=== PATIENT | male | born 1940 | race Caucasian/White ===

== ENCOUNTER 2023-01-09 17:14 | Emergency (ER) | payer MEDICARE, OTHER ==
[2023-01-09 17:33] VITALS: O2SAT 96
[2023-01-09 17:52] LABS: BASOPHILS # (AUTO) 0.1 10^3/uL (0.0-0.1); BASOPHILS % (AUTO) 0.4 %; EOSINOPHILS % (AUTO) 0.3 %; HCT - HEMATOCRIT 43.9 % (42.0-52.0); HGB - HEMOGLOBIN 15.4 g/dL (14.0-18.0); LYMPHOCYTES % (AUTO) 8.1 %; MEAN CORPUSCULAR HEMOGLOBIN 34.8 pg (27.0-31.0); MEAN CORPUSCULAR HGB CONC 35.1 g/dL (32.0-36.0); MEAN CORPUSCULAR VOLUME 99.3 fL (80.0-94.0); MEAN PLATELET VOLUME 11.1 fL (7.4-11.4); MONOCYTES % (AUTO) 8.1 %; NEUTROPHILS % (AUTO) 82.7 %; PLT - PLATELET COUNT 192 10^3/uL (130-450); RED BLOOD COUNT 4.42 10^6/uL (4.70-6.10); RED CELL DISTRIBUTION WIDTH 12.6 % (12.0-15.0); WHITE BLOOD COUNT 12.2 x10^3/uL (4.8-10.8)
[2023-01-09 17:54] LABS: BILIRUBIN,URINE NEGATIVE (NEGATIVE); GLUCOSE, URINE (UA) NEGATIVE (NEGATIVE); KETONES,URINE (UA) NEGATIVE (NEGATIVE); LEUKOCYTE ESTERASE, URINE NEGATIVE (NEGATIVE); NITRITE,URINE NEGATIVE (NEGATIVE); OCCULT BLOOD,URINE NEGATIVE (NEGATIVE); PH,URINE 6.5 PH (5.0-7.5); PROTEIN,URINE NEGATIVE (NEGATIVE); UROBILINOGEN,URINE 0.2 (NORMAL) E.U./dL (NORMAL)
[2023-01-09 17:56] LABS: CLARITY,URINE CLEAR (CLEAR)
[2023-01-09 18:12] LABS: ALBUMIN/GLOBULIN RATIO 1.3 (1.0-2.2); CALCIUM 8.9 mg/dL (8.5-10.3); CREATININE 1.3 mg/dL (0.6-1.3); POTASSIUM 4.1 mmol/L (3.5-4.5); TOTAL PROTEIN 7.2 g/dL (6.4-8.9)
[2023-01-09] MEDS ORDERED: SODIUM CHLORIDE 0.9% 1,000 ML IV STA (20:20)
[2023-01-09 20:45] LABS: MUDS CUTOFF CONCENTRATIONS CUTOFF CONC BELOW:
[2023-01-09 20:59] LABS: ETOH - ETHANOL < 10.0 mg/dL; MAGNESIUM 1.8 mg/dL (1.7-2.3); PHOSPHORUS 3.4 mg/dL (2.5-5.0)
[2023-01-09 20:59] LABS: AMPHETAMINE SCREEN,URINE NEGATIVE (NEGATIVE); BARBITURATE SCREEN,UR NEGATIVE (NEGATIVE); BENZODIAZEPINES SCREEN, URINE NEGATIVE (NEGATIVE); COCAINE SCREEN URINE NEGATIVE (NEGATIVE); METHADONE SCREEN, URINE NEGATIVE (NEGATIVE); METHAMPHETAMINES SCREEN, URINE NEGATIVE (NEGATIVE); OPIATE SCREEN, URINE NEGATIVE (NEGATIVE); OXYCODONE SCREEN, URINE NEGATIVE (NEGATIVE); PROPOXYPHENE SCREEN, URINE NEGATIVE (NEGATIVE); THC CANNABINOID SCREEN, URINE POSITIVE (NEGATIVE); TRICYCLIC ANTIDEPRESSANT,URINE NEGATIVE (NEGATIVE)
--- NOTE | 2023-01-09 21:32 | ED Physician Documentation ---
History of Present Illness - Stated complaint Stated Complaint: WEAKNESS,CONFUSION - Chief complaint Chief Complaint: Neuro - History obtained from History obtained from: Patient, Family, Friend - History of Present Illness Timing: Today Pain level max: 0 Pain level now: 0 - Additonal information Additional information: Patient is a 82-year-old male who presents to the emergency department with increased confusion today. He is brought in by his and his friend. Reportedly he has had intermittent confusion for some time, they are currently preparing to move back to [place]. He has not been using his CPAP machine recently. No fevers. No chills. He is on Eliquis for atrial fibrillation. No numbness or tingling. No focal weakness. Does occasionally drink wine. Today his left him at the gym and went to see a friend, when she returned about an hour later he was wandering outside. He appeared more confused than usual. Review of Systems Constitutional: denies: Fever, Chills Ears: denies: Ear pain Nose: denies: Rhinorrhea / runny nose, Congestion Respiratory: denies: Cough GI: denies: Nausea, Vomiting, Diarrhea Skin: denies: Rash Musculoskeletal: denies: Neck pain, Back pain Neurologic: reports: Confused. denies: Focal weakness, Numbness, Seizure, Headache, Head injury, LOC PD PAST MEDICAL HISTORY - Past Medical History Past Medical History: Yes Cardiovascular: Atrial fibrillation Respiratory: Sleep apnea, CPAP use Other Past Medical History: Hemochromatosis - Allergies Allergies/Adverse Reactions: Allergies Allergy/AdvReac Type Severity Reaction Status Date / Time No Known Drug Allergies Allergy Verified 01/09/23 17:25 - Living Situation Living Situation: reports: With family Living Arrangement: reports: At home - Social History Does the pt smoke?: No Does the pt drink ETOH?: Yes ETOH Use: Wine - Family History Family history: reports: Non contributory PD ED PE NORMAL - Vitals Vital signs reviewed: Yes - General General: Alert and oriented X 3, No acute distress, Well developed/nourished - HEENT HEENT: Atraumatic, PERRL, EOMI, Ears normal, Moist mucous membranes, Pharynx benign - Neck Neck: Supple, no meningeal sign - Cardiac Cardiac: RRR, Strong equal pulses - Respiratory Respiratory: No respiratory distress, Clear bilaterally - Abdomen Abdomen: Soft, Non tender, Non distended - Derm Derm: Warm and dry - Extremities Extremities: No edema, No calf tenderness / cord - Neuro Neuro: Alert and oriented X 3, credit administration officer 2-12 intact, No motor deficit, No sensory deficit, Normal speech Eye Opening: Spontaneous Motor: Obeys Commands Verbal: Oriented GCS Score: 15 - Psych Psych: Normal mood, Normal affect Results - Vitals Vitals: Vital Signs - 24 hr 01/09/23 01/09/23 17:17 21:59 Temperature 37.0 C Heart Rate 105 H 82 Respiratory 18 18 Rate Blood Pressure 133/96 H 140/96 H O2 Saturation 96 96 Oxygen O2 Source Room air - Labs Labs: Laboratory Tests 01/09/23 01/09/23 01/09/23 17:39 17:39 17:43 WBC 12.2 H RBC 4.42 L Hgb 15.4 Hct 43.9 MCV 99.3 H MCH 34.8 H MCHC 35.1 RDW 12.6 Plt Count 192 MPV 11.1 Neut # (Auto) 10.0 H Lymph # (Auto) 1.0 L Kaufman # (Auto) 1.0 Eos # (Auto) 0.0 Baso # (Auto) 0.1 Absolute Nucleated RBC 0.00 Nucleated RBC % 0.0 Sodium Potassium Chloride Carbon Dioxide Anion Gap BUN Creatinine Estimated GFR (MDRD) Glucose Calcium Phosphorus Magnesium Total Bilirubin AST ALT Alkaline Phosphatase Total Protein Albumin Globulin Albumin/Globulin Ratio Lipase Urine Color YELLOW Urine Clarity CLEAR Urine pH 6.5 Ur Specific Rozel 1.015 Urine Protein NEGATIVE Urine Glucose (UA) NEGATIVE Urine Ketones NEGATIVE Urine Occult Blood NEGATIVE Urine Nitrite NEGATIVE Urine Bilirubin NEGATIVE Urine Urobilinogen 0.2 (NORMAL) Ur Leukocyte Esterase NEGATIVE Ur Microscopic Review NOT INDICATED Urine Culture Comments NOT INDICATED Urine Opiates Screen NEGATIVE Ur Oxycodone Screen NEGATIVE Urine Methadone Screen NEGATIVE Ur Propoxyphene Screen NEGATIVE Ur Barbiturates Screen NEGATIVE Ur Tricyclics Screen NEGATIVE Ur Phencyclidine Scrn NEGATIVE Ur Amphetamine Screen NEGATIVE U Methamphetamines Scrn NEGATIVE U Benzodiazepines Scrn NEGATIVE Urine Cocaine Screen NEGATIVE U Cannabinoids Screen POSITIVE H Ethyl Alcohol 01/09/23 01/09/23 17:43 17:43 WBC RBC Hgb Hct MCV MCH MCHC RDW Plt Count MPV Neut # (Auto) Lymph # (Auto) Kaufman # (Auto) Eos # (Auto) Baso # (Auto) Absolute Nucleated RBC Nucleated RBC % Sodium 131 L Potassium 4.1 Chloride 97 L Carbon Dioxide 29 Anion Gap 5.0 L BUN 12 Creatinine 1.3 Estimated GFR (MDRD) 53 L Glucose 102 Calcium 8.9 Phosphorus 3.4 Magnesium 1.8 Total Bilirubin 1.0 AST 38 ALT 24 Alkaline Phosphatase 96 Total Protein 7.2 Albumin 4.0 Globulin 3.2 Albumin/Globulin Ratio 1.3 Lipase 39 Urine Color Urine Clarity Urine pH Ur Specific Rozel Urine Protein Urine Glucose (UA) Urine Ketones Urine Occult Blood Urine Nitrite Urine Bilirubin Urine Urobilinogen Ur Leukocyte Esterase Ur Microscopic Review Urine Culture Comments Urine Opiates Screen Ur Oxycodone Screen Urine Methadone Screen Ur Propoxyphene Screen Ur Barbiturates Screen Ur Tricyclics Screen Ur Phencyclidine Scrn Ur Amphetamine Screen U Methamphetamines Scrn U Benzodiazepines Scrn Urine Cocaine Screen U Cannabinoids Screen Ethyl Alcohol < 10.0 - Rads (name of study) CT head Relevant Findings:: Final report received, See rad report PD Medical Decision Making - ED course Complexity details: reviewed results, re-evaluated patient, considered dario maradiaga d/w patient, d/w family ED course: 82-year-old male with confusion today. It does have mild hyponatremia and was given IV fluids. Mild leukocytosis, has a history of hemochromatosis, unclear what his normal baseline is. He does take testosterone and B12 at home. No acute findings on head CT, though does have chronic small vessel white matter disease. This could be contributing to his memory loss. Recommend that he have a neurocognitive evaluation when he arrives in [place]. He also has not been using his CPAP, this can be causing excessive daytime sleepiness, confusion as well. Recommend that he start using his CPAP. No focal neurological deficits. No medication changes. He appears to be at his normal baseline currently in the emergency department. We will have him follow-up with his PCP for further care. Patient counseled regarding signs and symptoms for which I believe and urgent re-evaluation would be necessary. Patient with good understanding of and agreement to plan and is comfortable going home at this time This document was made in part using voice recognition software. While efforts are made to proofread this document, sound alike and grammatical errors may occur. Departure - Departure Disposition: 01 Home, Self Care Clinical Impression: Weakness, Dehydration, Confusion Condition: Good Instructions: ED Dehydration Follow-Up: your,doctor in 1week [Other] Comments: Your laboratory testing did not show any significant abnormalities today. You were mildly dehydrated and were given IV fluids for this. Your urinalysis does not show any signs of infection. Your head CT reading is below. It is recommended that you follow-up with your doctor for further care and may benefit from a brain MRI. You should be using your CPAP at night as well as obstructive sleep apnea can cause confusion and memory issues as we discussed. PROCEDURE: HEAD WO INDICATIONS: altered mental status TECHNIQUE: Noncontrast 4.5 mm thick angled axial sections acquired from the foramen magnum to the vertex. For radiation dose reduction, the following was used: automated exposure control, adjustment of mA and/or kV according to patient size. COMPARISON: None. FINDINGS: Image quality: Excellent. CSF spaces: Basal cisterns are patent. No extra-axial fluid collections. Ventricles are normal in size and shape. Brain: There is moderate cerebral volume loss. Moderate periventricular white matter chronic small vessel treatment changes are present. No midline shift. No intracranial masses or hemorrhage. Herrera-white matter interface is normal. Skull and face: Calvarium and visualized facial bones are intact, without suspicious lesions. Sinuses: Visualized sinuses and mastoids are clear. IMPRESSION: No acute intracranial pathology. Forms: PCP List Discharge Date/Time: 01/09/23 23:11
[2023-01-09 22:01] VITALS: BP 140/96
--- NOTE | 2023-01-09 22:12 | CT Report ---
PROCEDURE: HEAD WO INDICATIONS: altered mental status TECHNIQUE: Noncontrast 4.5 mm thick angled axial sections acquired from the foramen magnum to the vertex. For r adiation dose reduction, the following was used: automated exposure control, adjustment of mA and/or kV according to patient size. COMPARISON: None. FINDINGS: Image quality: Excellent. CSF spaces: Basal cisterns are patent. No extra-axial fluid collections. Ventricles are normal in size and shape. Brain: There is moderate cerebral volume loss. Moderate periventricular white matter chronic small v essel treatment changes are present. No midline shift. No intracranial masses or hemorrhage. Herrera-w lidia matter interface is normal. Skull and face: Calvarium and visualized facial bones are intact, without suspicious lesions. Sinuses: Visualized sinuses and mastoids are clear. IMPRESSION: No acute intracranial pathology. Reviewed by: Shahid Erazo MD on 01/09/2023 10:10 PM PDT Approved by: Shahid Erazo MD on 01/09/2023 10:10 PM PDT Station ID: [id number]
== END 2023-01-09 23:11 | disposition home or self-care (01) ==
LOC: ED 17:14
DX: R41.0 Disorientation, unspecified (principal); E87.1 Hypo-osmolality and hyponatremia; E86.0 Dehydration; R53.1 Weakness; I48.91 Unspecified atrial fibrillation; Z79.899 Other long term (current) drug therapy
CPT/HCPCS: 36415; 70450; 80053; 80306; 81003; 83690; 83735; 84100; 85025; 96360; 99283; 99284; G0480; 80320; 81001; 87086

== ENCOUNTER 2023-01-13 12:45 | Inpatient (IN) | payer MEDICARE, OTHER ==
[2023-01-13 13:39] LABS: BASOPHILS # (AUTO) 0.1 10^3/uL (0.0-0.1); BASOPHILS % (AUTO) 0.7 %; EOSINOPHILS # (AUTO) 0.1 10^3/uL (0.0-0.7); HCT - HEMATOCRIT 45.3 % (42.0-52.0); HGB - HEMOGLOBIN 15.5 g/dL (14.0-18.0); LYMPHOCYTES # (AUTO) 1.1 10^3/uL (1.5-3.5); LYMPHOCYTES % (AUTO) 10.2 %; MEAN CORPUSCULAR HGB CONC 34.2 g/dL (32.0-36.0); MEAN CORPUSCULAR VOLUME 99.3 fL (80.0-94.0); MEAN PLATELET VOLUME 10.8 fL (7.4-11.4); MONOCYTES # (AUTO) 1.2 10^3/uL (0.0-1.0); NEUTROPHILS # (AUTO) 8.1 10^3/uL (1.5-6.6); NEUTROPHILS % (AUTO) 76.6 %; PLT - PLATELET COUNT 221 10^3/uL (130-450); RED BLOOD COUNT 4.56 10^6/uL (4.70-6.10); RED CELL DISTRIBUTION WIDTH 12.6 % (12.0-15.0); WHITE BLOOD COUNT 10.5 x10^3/uL (4.8-10.8)
[2023-01-13] MEDS ORDERED: diltiaZEM INJ 5 MG/ML VIAL IVP STA (13:45)
[2023-01-13 13:53] LABS: ALBUMIN 3.7 g/dL (3.2-5.5); ALBUMIN/GLOBULIN RATIO 1.2 (1.0-2.2); CALCIUM 8.6 mg/dL (8.5-10.3); CREATININE 1.1 mg/dL (0.6-1.3); TOTAL PROTEIN 6.7 g/dL (6.4-8.9)
--- NOTE | 2023-01-13 13:53 | ED Physician Documentation ---
History of Present Illness - Stated complaint Stated Complaint: SOA - Chief complaint Chief Complaint: Resp - Additonal information Additional information: 82-year-old male is brought to the emergency department for evaluation of shortness of air on exertion for at least the last 3 to 4 days. He does have a history of atrial fibrillation since 2019 for which she is on Eliquis only. He has never required anything for rate control. His , who does much of the history giving at the bedside, reports that he was seen in this emergency department on the first for confusion. He had negative labs and CT imaging. She reports the confusion persist. He does take CBD at nighttime. She also reports that he was quite anxious this morning for which she gave him a Xanax. Patient is denying chest pain. No nausea or vomiting. On presentation to the emergency department he does have an EKG showing atrial fibrillation with a rate of 130. His blood pressure is 145/74. Saturating 87% on room air. Review of Systems Constitutional: denies: Fever, Chills Cardiac: reports: Palpitations. denies: Chest pain / pressure, Pedal edema, Calf pain Respiratory: reports: Dyspnea. denies: Cough, Hemoptysis GI: reports: Reviewed and negative : reports: Reviewed and negative Skin: reports: Reviewed and negative Musculoskeletal: reports: Reviewed and negative PD PAST MEDICAL HISTORY - Past Medical History Past Medical History: Yes Cardiovascular: Atrial fibrillation Respiratory: Sleep apnea, CPAP use - Past Surgical History Past Surgical History: No Derm: Skin cancer surgery - Present Medications Home Medications: Ambulatory Orders Medication Instructions Recorded Confirmed Apixaban [Eliquis] 5 mg PO BID 01/13/23 01/13/23 - Allergies Allergies/Adverse Reactions: Allergies Allergy/AdvReac Type Severity Reaction Status Date / Time No Known Drug Allergies Allergy Verified 01/13/23 13:01 - Social History Does the pt smoke?: No Smoking Status: Never smoker Does the pt drink ETOH?: Yes Does the pt have substance abuse?: No - Immunizations Immunizations are current?: No PD ED PE NORMAL - General General: Alert and oriented X 3, No acute distress, Well developed/nourished - HEENT HEENT: Atraumatic, Moist mucous membranes - Neck Neck: Supple, no meningeal sign - Cardiac Cardiac: RRR, No murmur - Respiratory Respiratory: No respiratory distress, Clear bilaterally - Abdomen Abdomen: Normal bowel sounds, Soft, Non tender - Back Back: No CVA TTP - Derm Derm: Normal color, Warm and dry, No rash - Extremities Extremities: No deformity - Neuro Neuro: Alert and oriented X 3, pump servicer 2-12 intact Eye Opening: Spontaneous Motor: Obeys Commands Verbal: Oriented GCS Score: 15 Results - Vitals Vitals: Vital Signs - 24 hr 01/13/23 01/13/23 01/13/23 12:54 13:56 14:07 Temperature 36 C L Heart Rate 81 110 H 91 Respiratory 30 H 22 23 Rate Blood Pressure 145/74 H 139/98 H 116/72 O2 Saturation 97 88 L 92 If not protocol 2 : Oxygen Flow, liters/minute Oxygen O2 Source Nasal cannula Oxygen Flow Rate 2 - EKG (time done) 1307 EKG releavant findings:: EKG personally interpreted by author of this note. Relevant findings are: Rate: Rate (enter#) (133) Rhythm: Atrial fibrillation Intervals: No: Prolonged QT QRS: Low voltage Ischemia: Normal ST segments Compare to prior EKG: Old EKG unavailable Computer interpretation: Agree with computer - Labs Labs: Laboratory Tests 01/13/23 01/13/23 01/13/23 13:21 13:21 13:21 WBC 10.5 RBC 4.56 L Hgb 15.5 Hct 45.3 MCV 99.3 H MCH 34.0 H MCHC 34.2 RDW 12.6 Plt Count 221 MPV 10.8 Neut # (Auto) 8.1 H Lymph # (Auto) 1.1 L [place] # (Auto) 1.2 H Eos # (Auto) 0.1 Baso # (Auto) 0.1 Absolute Nucleated RBC 0.00 Nucleated RBC % 0.0 Sodium 128 L Potassium 4.0 Chloride 95 L Carbon Dioxide 26 Anion Gap 7.0 BUN 11 Creatinine 1.1 Estimated GFR (MDRD) 64 L Glucose 92 Calcium 8.6 Total Bilirubin 1.0 AST 38 ALT 23 Alkaline Phosphatase 87 B-Natriuretic Peptide 59 Total Protein 6.7 Albumin 3.7 Globulin 3.0 Albumin/Globulin Ratio 1.2 Lipase 33 TSH Free T4 Direct Nasal Adenovirus (PCR) Nasal B. parapertussis DNA (PCR) Nasal Coronavir 229E PCR Nasal Coronavir HKU1 PCR Nasal Coronavir NL63 PCR Nasal Coronavir OC43 PCR Nasal Enterovir/Rhinovir PCR Nasal Influenza B PCR Nasal Influenza A PCR Nasal Parainfluen 1 PCR Nasal Parainfluen 2 PCR Nasal Parainfluen 3 PCR Nasal Parainfluen 4 PCR Nasal RSV (PCR) Nasal B.pertussis DNA PCR Nasal C.pneumoniae (PCR) Jamin Human Metapneumo PCR Nasal M.pneumoniae (PCR) Nasal SARS-CoV-2 (PCR) 01/13/23 01/13/23 13:21 14:35 WBC RBC Hgb Hct MCV MCH MCHC RDW Plt Count MPV Neut # (Auto) Lymph # (Auto) [place] # (Auto) Eos # (Auto) Baso # (Auto) Absolute Nucleated RBC Nucleated RBC % Sodium Potassium Chloride Carbon Dioxide Anion Gap BUN Creatinine Estimated GFR (MDRD) Glucose Calcium Total Bilirubin AST ALT Alkaline Phosphatase B-Natriuretic Peptide Total Protein Albumin Globulin Albumin/Globulin Ratio Lipase TSH 4.55 Free T4 Direct 0.87 Nasal Adenovirus (PCR) NOT DETECTED Nasal B. parapertussis DNA (PCR) NOT DETECTED Nasal Coronavir 229E PCR NOT DETECTED Nasal Coronavir HKU1 PCR NOT DETECTED Nasal Coronavir NL63 PCR NOT DETECTED Nasal Coronavir OC43 PCR NOT DETECTED Nasal Enterovir/Rhinovir PCR NOT DETECTED Nasal Influenza B PCR NOT DETECTED Nasal Influenza A PCR NOT DETECTED Nasal Parainfluen 1 PCR NOT DETECTED Nasal Parainfluen 2 PCR NOT DETECTED Nasal Parainfluen 3 PCR NOT DETECTED Nasal Parainfluen 4 PCR NOT DETECTED Nasal RSV (PCR) NOT DETECTED Nasal B.pertussis DNA PCR NOT DETECTED Nasal C.pneumoniae (PCR) NOT DETECTED Jamin Human Metapneumo PCR NOT DETECTED Nasal M.pneumoniae (PCR) NOT DETECTED Nasal SARS-CoV-2 (PCR) NOT DETECTED - Rads (name of study) cxr Relevant Findings:: Final report received (Large opacity in the left lung, probably due to pleural effusion and atelectasis. Interstitial thickening and scattering interstitial opacities, potentially edema or pneumonitis.) CT chest w Relevant Findings:: Final report received PD Medical Decision Making - ED course Complexity details: reviewed results, re-evaluated patient, d/w patient ED course: 82-year-old male who has a history of A-fib on Eliquis but not requiring rate control presents emergency department for worsening exertional dyspnea and weakness. The symptoms have been present over the last 4 days. Patient was seen in this emergency department on 09 January for confusion with negative CT imaging of the head. Labs without acute worrisome abnormalities. His reports that since then he has been increasingly short of air and fatigued. On presentation to the room air saturating 87% on room air. This increased to 96% with 2 L nasal cannula. He did have globally diminished breath sounds on the left lung though no rhonchi or crackles. Initially obtained an EKG which showed A-fib rate of 130. Patient was administered 20 mg of Cardizem in the ER with a drop in his heart rate to the 80s which remained A-fib. He remained normotensive most recently blood pressure 120/65. We did obtain CBC, electrolytes and blood cultures. CBC shows no leukocytosis. Hemoglobin of 15. Electrolytes reveal hyponatremia with a sodium of 128 but no other worrisome derangement. Patient does not present as having sepsis or in septic shock. A chest x-ray shows large amount of focal consolidation in the left mid and lower lung versus acute atelectasis or pleural effusion. Pulmonary pathology is most likely causative of the A-fib with poor rate control. Blood cultures x2 were obtained and patient will be started on azithromycin and ceftriaxone here in the emergency department. A CT of the chest is pending. However I have discussed the case with Dr. Barba our hospitalist who agrees to bring the patient in for further evaluation and management of his atrial fibrillation and concern for left lung pneumonia/pleural effusion. Respiratory PCR panel is pending. I discussed the plan and findings with the patient and his and they are in agreement. 1600: CT results have been evaluated and show a large left-sided pleural effusion with underlying atelectasis however there are multiple enlarged pulmonary nodules concerning for cancer. In addition 4.5 cm liver lesion concerning for metastatic disease. Dr. Barba has called me to discuss the CT findings. She reports to me she will notify the family. Patient's heart rate currently 108. He will be placed on a Cardizem infusion for rate control and admitted to the ICU Departure - Departure Disposition: 66 [facility] DC/Xfer Clinical Impression: Atrial fibrillation with RVR, Hypoxia, Pleural effusion, Hyponatremia A-fib Qualifiers: Atrial fibrillation type: unspecified chronic Qualified Code(s): I48.20 - Chronic atrial fibrillation, unspecified Pneumonia Qualifiers: Pneumonia type: due to unspecified organism Laterality: left Lung location: lower lobe of lung Qualified Code(s): J18.9 - Pneumonia, unspecified organism Forms: PCP List
--- NOTE | 2023-01-13 13:57 | XRAY Report ---
PROCEDURE: Chest 1 View X-Ray INDICATIONS: Chest Pain TECHNIQUE: One view of the chest was acquired. COMPARISON: None. FINDINGS: Surgical changes and devices: None. Lungs and pleura: There is diffuse opacity in the left lung and moderate to large laterally layering left pleural effusion. Diffuse interstitial thickening and scattered interstitial opacities are seen in the right lung. No pneumothorax. Mediastinum: The heart is obscured by left lower lung opacity. Central vasculature is indistinct. Bones and chest wall: No suspicious bony lesions. Overlying soft tissues appear unremarkable. IMPRESSION: 1. Large opacity in the left lung, probably due to pleural effusion and atelectasis. 2. Interstitial thickening and scattered interstitial opacities, potentially edema or pneumonitis. Reviewed by: Yessenia De La Paz MD on 01/13/2023 1:55 PM PST Approved by: Yessenia De La Paz MD on 01/13/2023 1:[address] [facility] Station ID: [id number]
[2023-01-13] MEDS ORDERED: cefTRIAXone 2 GM in SODIUM CHLORIDE 0.9% MINIBAG 100 ML IV STA (14:09)
[2023-01-13] MEDS ORDERED: AZITHROMYCIN 250 MG TABLET PO STA (14:09)
[2023-01-13 14:28] LABS: THYROID STIMULATING HORMONE 4.55 uIU/mL (0.34-5.60)
[2023-01-13] MEDS ORDERED: iohexoL-300 100 ML VIAL IVP ONE (15:14)
--- NOTE | 2023-01-13 15:29 | CT Report ---
PROCEDURE: CHEST W INDICATIONS: pleaural effusion vs pna? CONTRAST: 100ml omni 300 TECHNIQUE: After the administration of intravenous contrast, 1 mm axial images were acquired from the pulmonary apices through the posterior costophrenic angles. Axial 5 mm soft tissue kernel reconstructions were performed as well as 8 mm axial MIP and coronal and sagittal 5 mm reformations. For radiation dose reduction, the following was used: automated exposure control, adjustment of mA and/or kV according to patient size. COMPARISON: Correlation is made with chest x-ray, 01/13/2023 FINDINGS: Image quality: Motion artifact is noted. Lungs and pleura: There is a large left-sided pleural effusion seen, with a small left-sided pleural effusion. Dependent enhancing opacity can be seen at both lung bases, which is attributed to atelecta sis. There are rounded pulmonary nodules seen throughout the right lung, with the largest seen within the anterior right upper lobe, measuring 14 x 10 mm in greatest axial dimension. Mediastinum: Prominent coronary artery calcification can be seen. Heart size is normal. No pericardia l effusion. No large vessel abnormality. No mediastinal adenopathy by size criteria. Chest wall and lower neck: Thyroid is unremarkable. No axillary or supraclavicular adenopathy by size . Bones: No aggressive osseous abnormality. Age-appropriate degenerative changes are seen. Upper Abdomen: There is a low-density liver lesion seen on the right posteriorly, measuring 4.5 cm. T he visualized portions of the upper abdominal structures are otherwise within normal limits. IMPRESSION: There is a large left-sided pleural effusion and a small right-sided pleural effusion. Overlying pres umed atelectasis can be seen. Numerous right-sided pulmonary nodules are seen, measuring up to 14 mm. These represent metastatic di sease until proven otherwise. There is a 4.5 cm liver lesion, which is highly suspicious for metastatic disease, given the appearan ce of the right lung. Reviewed by: Wilbur Murrieta MD on 01/13/2023 2:28 PM [place] Approved by: Wilbur Murrieta MD on 01/13/2023 2:28 PM [facility] Station ID: [id number]
[2023-01-13 15:36] LABS: CORONAVIRUS 229E-RESP PCR NOT DETECTED; CORONAVIRUS HKU1-RESP PCR NOT DETECTED; CORONAVIRUS NL63-RESP PCR NOT DETECTED; CORONAVIRUS OC43-RESP PCR NOT DETECTED
[2023-01-13 15:37] LABS: B. PARAPERTUSSIS- RESP PCR PAN NOT DETECTED; B. PERTUSSIS- RESP PCR PANEL NOT DETECTED; C. PNEUMONIAE- RESP PCR PANEL NOT DETECTED; HUMAN METAPNEUMOVIRUS NOT DETECTED; INFLUENZA A- RESP PCR PANEL NOT DETECTED; INFLUENZA B - RESP PCR PANEL NOT DETECTED; M. PNEUMONIAE- RESP PCR PANEL NOT DETECTED; PARAINFLUENZA VIRUS 1 NOT DETECTED; PARAINFLUENZA VIRUS 2 NOT DETECTED; PARAINFLUENZA VIRUS 3 NOT DETECTED; PARAINFLUENZA VIRUS 4 NOT DETECTED; RHINOVIRUS/ENTEROVIRUS NOT DETECTED; RSV- RESP PCR PANEL NOT DETECTED; SARS-CoV-2 -RESP PCR PANEL NOT DETECTED
[2023-01-13] MEDS ORDERED: ONDANSETRON 4 MG/2 ML VIAL IVP PRN (15:52)
[2023-01-13] MEDS ORDERED: SODIUM CHLORIDE FLUSH 0.9% 10 ML SYRINGE IVP PRN (15:52)
[2023-01-13] MEDS ORDERED: ACETAMINOPHEN 325 MG TABLET PO PRN (15:52)
[2023-01-13] MEDS ORDERED: MULTIVITAMIN 10 ML, THIAMINE INJ 100 MG, POTASSIUM CHLORIDE INJ 20 MEQ, FOLIC ACID INJ ... IV SCH ×5 (18:15)
--- NOTE | 2023-01-13 18:37 | HISTORY & PHYSICAL EXAMINATION ---
Chief Complaint - Chief Complaint Chief Complaint: Dyspnea History of Present Illness - Admitted From Admitted From:: ED - History Obtained From Records Reviewed: Yes History obtained from: ED, pt's , son-in-law Exam Limitations: Pt confused, recent onset - History of Present Illness HPI Comment/Other: As pt is confused and disoriented, history is obtained from recent ED reports and family (pt's and son-in-law) at bedside. Mr. Cruz is an 82 y/o M, presenting to the ED today for shortness of breath and progressively worsening confusion. Pt recently presented on 01/09 for increased confusion. ED workup then showed no clear etiology, outside of pt's non-compliance w/ CPAP and age related atrophy seen on head CT, pt discharged w/ recommended outpatient follow up. Since 01/09, he has become progressively weaker, having difficulty standing, and SOB has become debilitating. 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 We do not have details of preceding workup at this time. Today pt brought in via POV to ED. EKG shows atrial fibrillation with a rate of 133, 87% SpO2 on room air. CXR shows large amount of focal consolidation in left mid and lower lung versus acute atelectasis or pleural effusion. Pt started on azithromycin and ceftriaxone for empiric PNA treatment. CT chest shows "large left-sided pleural effusion with underlying atelectasis, however there are multiple enlarged pulmonary nodules concerning for cancer." Pt admitted for further workup of hypoxia, A-fib w/ RVR, and persistent confusion. History - Past Medical History Cardiovascular: reports: Atrial fibrillation Respiratory: reports: Sleep apnea, CPAP use Derm: reports: Other (Melanoma, posterior neck) - Past Surgical History Derm: reports: Skin cancer surgery - Family & Social History Living Situation: With family Social History Notes: Pt drinks 2 glasses of wine daily for years. He uses CBD oil nightly. He's never smoked. 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 says when he retired 5 years ago, pt became depressed. Pt was windsurfing approximately a year ago. - Substance History Use: Uses substance without health or social issues: Other (CBD) Abuse: Recurrent use of substance despite neg consequences: Alcohol - POLST POLST Status: Full Code Meds/Allgy - Home Medications Home Medications: Ambulatory Orders Medication Instructions Recorded Confirmed Apixaban [Eliquis] 5 mg PO BID 01/13/23 01/13/23 Testosterone Cypionate 0.75 ml IM UD 01/14/23 01/14/23 - Allergies Allergies/Adverse Reactions: Allergies Allergy/AdvReac Type Severity Reaction Status Date / Time No Known Drug Allergies Allergy Verified 01/13/23 13:01 Review of Systems - All Other Systems All Other Systems: reports: Reviewed and negative (As noted in HPI) Exam - Vital Signs Reviewed Vital Signs: Yes Vital Signs: Vital Signs x48h Temp Pulse Resp BP Pulse Ox O2 Flow Rate 01/13/23 16:00 36.2 C L 114 H 25 H 138/96 H 95 2 01/13/23 14:07 91 23 116/72 92 2 01/13/23 13:56 110 H 22 139/98 H 88 L 01/13/23 12:54 36 C L 81 30 H 145/74 H 97 - Physical Exam General Appearance: positive: Mild distress, Anxious, Other (Disheveled) ENT: positive: Dry mucous membranes Neck: positive: Other (Surgical scar posterior neck, melanoma removal) Respiratory: positive: Chest non-tender, Other (Breath sounds distant) Cardiovascular: positive: Tachycardia, Other (Heart sounds distant) Abdomen: positive: Non-tender, No organomegaly Skin: positive: Color nml, No rash, Warm, Dry, Other (Face flushed) Extremities: positive: Nml appearance, No pedal edema Neurologic/Psychiatric: positive: Disoriented to place, Disoriented to time, Other (When asked questions, pt responded w/ "I don't know") Conclusion/Plan - Problem List (1) Acute respiratory failure with hypoxia Conclusion/Plan: Pt's SOB today is worse than previous 3-4 days. Pt has dyspnea w/ exertion and family reports weakness attempting to stand, decreased inability to walk, and pt refuses to use his cane. 87% sat on room air. CT shows large L pleural effusion w/ underlying atelectasis vs PNA, also multiple enlarged pulmonary nodules concerning for cancer. On admission, pt on continuous O2 via NC at 2 Lpm. Pt on 2 Lpm via NC, continue supplemental O2. Thoracentesis w/ IR planned for 01/14. Pt started on BID furosemide to relieve pulmonary edema. Continuous telemetry and pulse oximetry ordered. Will closely monitor pt's SpO2 and titrate oxygen as needed. (2) Atrial fibrillation with RVR Conclusion/Plan: Pt diagnosed with atrial fibrillation in 2019 and is prescribed Eliquis; pt has not required any rate control medication previously. Today in the ED, EKG shows atrial fibrillation with a rate of 133. He was given IV push diltiazem for rate control and HR responded . Troponin in ED trended and they ruled out MD, no ST elevations noted on EKG. Pt continued on PO diltiazem Q8HR as his HR has been borderline tachycardic intermittently. Telemetry ordered for continuous monitoring. Continue Eliquis. (3) Pleural effusion Conclusion/Plan: Pt's SOB has been progressively worsening for past several days. Imaging in ED shows large left-sided pleural effusion with underlying atelectasis vs PNA. On exam, pt's breath and heart sounds are distant, likely d/t significant fluid present in pt's lungs. Pt on 2 Lpm via NC, continue supplemental O2. Will monitor via continuous oximetry. BID furosemide ordered. Pt scheduled for thoracentesis on 01/14. (4) Pneumonia Conclusion/Plan: With CXR showing infiltrate , pt started empiric treatment for PNA in ED with c eftriaxone and azithromycin. Continue empiric IV ceftriaxone and azithromycin, will tailor based on cultures. Thoracentesis also scheduled for 01/14 for culture. Qualifiers: Pneumonia type: due to unspecified organism Laterality: left Lung location: lower lobe of lung Qualified Code(s): J18.9 - Pneumonia, unspecified organism (5) Hyponatremia Conclusion/Plan: This is presumed hypovolemic hyponatremia, d/t tachycardia and pt's dry mucous membranes. Pt's Na is 128 in ED, which could be contributing to his persistent confusion. IV hydration via NS ordered. Furosemide ordered to reduce pleural effusion and diurese free water. Follow BMP daily. (6) Altered mental status Conclusion/Plan: Family reports pt had progressive confusion for past several months, increasing severely since approximately 01/07. When speaking to pt on admission, he is alert to self, believes he is currently in [place]. found pt wandering around outside on 01/09. On that day, CT head was negative. Pt was anxious today and given a Xanax, which is not prescribed for him. Pt reportedly uses CBD nightly and drinks "2x glasses of wine" daily. Start CIWA protocol w/ PRN IV lorazepam. Start Librium 10 mg BID scheduled. Correct sodium w/ IV NS. Assure pt is not hypoxic. Qualifiers: Altered mental status type: disorientation Qualified Code(s): R41.0 - Disorientation, unspecified (7) Melanoma Conclusion/Plan: Family of patient reports he had a melanoma, approximately 6x6 cm located on his posterior neck, removed at approximately 3 months ago. Family states cleared patient of residual cancer, reportedly w/ a CT scan, and family believes pt is cancer-free. ED chest CT, in addition to pleural effusion, shows multiple enlarged pulmonary nodules concerning for cancer, along with 4.5 cm liver lesion concerning for metastatic disease. MRI scheduled for 01/14 to assess metastatic involvement. Thoracentesis scheduled for 01/14, fluid to be sent to pathology. Qualifiers: Melanoma location: neck Qualified Code(s): C43.4 - Malignant melanoma of scalp and neck - Lab Results Fish Bones: 01/14/23 04:30 01/14/23 04:30 - Diagnostic Imaging Results Diagnostic Imaging Results: positive: Final report reviewed (Abdomen CT) - Other Other Results/Comments: Attestation: The patient is expected to be hospitalized for greater than 2 midnights and is expected to be discharged or transferred to another facility within 96 hours: Yes
[2023-01-13 18:44] LABS: ALBUMIN 3.7 g/dL (3.2-5.5); ALBUMIN/GLOBULIN RATIO 1.2 (1.0-2.2); BILIRUBIN,TOTAL 0.8 mg/dL (0.2-1.0); CALCIUM 8.9 mg/dL (8.5-10.3); CREATININE 1.1 mg/dL (0.6-1.3); TOTAL PROTEIN 6.9 g/dL (6.4-8.9)
[2023-01-13 18:56] LABS: ABG PH 7.46 (7.35-7.45)
[2023-01-13 18:57] LABS: ABG BASE EXCESS -2.1 mmol/L (-2.0-3.0); ABG HCO3 20.2 mmol/L (22.0-26.0); ABG OXYGEN SATURATION 96 % (94-98); ABG PCO2 29 mmHg (34-45); ABG PO2 77 mmHg (80-100); ABG TCO2 21.1 MMOL/L (21.0-29.0); ALLEN TEST POSITIVE
[2023-01-13] MEDS: chlordiazePOXIDE 5 MG CAPSULE PO SCH (19:45)
[2023-01-13] MEDS: SODIUM CHLORIDE FLUSH 0.9% 10 ML SYRINGE IVP SCH (19:48)
[2023-01-13] MEDS ORDERED: chlordiazePOXIDE 5 MG CAPSULE PO SCH (20:00)
[2023-01-13] MEDS: LORazepam 2 MG/ML VIAL IVP PRN (21:18)
[2023-01-14] MEDS: SODIUM CHLORIDE 0.9% 1,000 ML IV SCH ×2 (03:21→20:45)
[2023-01-14] MEDS: APIXABAN 5 MG TABLET PO SCH ×3 (04:10→20:42)
[2023-01-14] MEDS: SODIUM CHLORIDE FLUSH 0.9% 10 ML SYRINGE IVP SCH ×3 (04:12→17:29)
[2023-01-14 05:14] LABS: BASOPHILS # (AUTO) 0.1 10^3/uL (0.0-0.1); BASOPHILS % (AUTO) 0.7 %; EOSINOPHILS # (AUTO) 0.1 10^3/uL (0.0-0.7); EOSINOPHILS % (AUTO) 1.4 %; HCT - HEMATOCRIT 42.7 % (42.0-52.0); HGB - HEMOGLOBIN 14.9 g/dL (14.0-18.0); LYMPHOCYTES # (AUTO) 0.9 10^3/uL (1.5-3.5); LYMPHOCYTES % (AUTO) 8.9 %; MEAN CORPUSCULAR HEMOGLOBIN 34.7 pg (27.0-31.0); MEAN CORPUSCULAR HGB CONC 34.9 g/dL (32.0-36.0); MEAN CORPUSCULAR VOLUME 99.3 fL (80.0-94.0); MEAN PLATELET VOLUME 11.4 fL (7.4-11.4); MONOCYTES % (AUTO) 9.3 %; NEUTROPHILS # (AUTO) 8.1 10^3/uL (1.5-6.6); NEUTROPHILS % (AUTO) 79.2 %; PLT - PLATELET COUNT 178 10^3/uL (130-450); WHITE BLOOD COUNT 10.3 x10^3/uL (4.8-10.8)
[2023-01-14 05:23] LABS: INR 1.4 (0.8-1.2); PT - PROTHROMBIN TIME 14.4 secs (9.9-12.6)
[2023-01-14 05:31] LABS: ALBUMIN 3.4 g/dL (3.2-5.5); BILIRUBIN,DIRECT 0.16 mg/dL (0.03-0.18); BILIRUBIN,TOTAL 0.8 mg/dL (0.2-1.0); CALCIUM 8.7 mg/dL (8.5-10.3); CREATININE 1.1 mg/dL (0.6-1.3); POTASSIUM 3.7 mmol/L (3.5-4.5); TOTAL PROTEIN 6.4 g/dL (6.4-8.9)
[2023-01-14] MEDS: PRENATAL VITAMIN TABLET PO SCH (08:44)
[2023-01-14] MEDS: AZITHROMYCIN INJ 500 MG in SODIUM CHLORIDE 0.9% 250 ML IV SCH (08:46)
[2023-01-14] MEDS: THIAMINE 100 MG TABLET PO SCH (08:49)
[2023-01-14] MEDS: chlordiazePOXIDE 5 MG CAPSULE PO SCH ×2 (09:16→20:45)
--- NOTE | 2023-01-14 10:37 | XRAY Report ---
PROCEDURE: Post Thoracentesis 1V CXR INDICATIONS: Left sided pleural effusion, Thoracentesis TECHNIQUE: One view of the chest was acquired. COMPARISON: 01/13/2023 FINDINGS: Surgical changes and devices: None. Lungs and pleura: Left-sided pleural effusion has improved in the interval. No pneumothorax. Mediastinum: Mediastinal contours appear normal. Heart size is enlarged. Moderate vascular congesti on. Right pleural space clear. Atherosclerotic vascular calcification noted in the aortic arch. Bones and chest wall: No suspicious bony lesions. Overlying soft tissues appear unremarkable. IMPRESSION: Moderate left pleural effusion has improved status post thoracentesis. No pneumothorax. Cardiomegaly and moderate vascular congestion Reviewed by: Luis Torres MD on 01/14/2023 9:35 AM [facility] Approved by: Luis Torres MD on 01/14/2023 9:35 AM [facility] Station ID: [id number]
[2023-01-14 10:42] LABS: CC,BF WBC 459 /mm^3
[2023-01-14 10:44] LABS: BF CLARITY HAZY; BF SOURCE PLEURAL; CC,BF RBC 15000 /mm^3
[2023-01-14 10:45] LABS: BF COLOR PINK
[2023-01-14] MEDS: FUROSEMIDE 20 MG/2 ML VIAL IVP SCH (15:00)
[2023-01-14] MEDS: diltiaZEM 30 MG TABLET PO SCH ×3 (15:00→20:42)
--- NOTE | 2023-01-14 15:00 | PHARMACY PROGRESS NOTE ---
- Best Possible Medication History Admit Date and Time: 01/13/23 1552 Processed by: Pharmacy Medication History completed: Yes Patient Interview: Pt unable to participate Secondary Source(s): Pharmacy records, Insurance records As the person ultimately responsible for medication therapy, providers are able to order a medication from an existing home medication list in [facility] via the "Reconcile Routine" prior to Confirmation of that medication by director of academic support. Such practice is discouraged except when the physician, in their clinical judgment, deems that a medical need exists for a medication without regard to previous use.
[2023-01-14] MEDS: cefTRIAXone 1 GM in SODIUM CHLORIDE 0.9% MINIBAG 100 ML IV SCH (15:01)
--- NOTE | 2023-01-14 15:06 | PROVIDER PROGRESS NOTE ---
Subjective - Prog Note Date Prog Note Date: 01/14/23 Prog Note Time: 15:04 - Subjective Pt reports feeling: Improved Subjective: Family states they are happy to see pt doing much better. Pt feels he can breathe better and he's able to answer questions. Objective - Vital Signs/Intake & Output Reviewed Vital Signs: Yes Vital Signs: Vital Signs x48h Temp Pulse Resp BP BP Pulse Ox O2 Flow Rate 01/14/23 15:00 114/59 L 01/14/23 13:40 36.3 C L 83 22 114/59 L 98 2 01/14/23 10:01 103 H 24 109/69 96 2 01/14/23 09:55 100 21 98/54 L 97 2 01/14/23 09:30 84 22 127/70 96 2 01/14/23 08:44 125/80 01/14/23 07:48 36.9 C 113 H 18 125/80 93 2 Intake & Output: Intake & Output 01/12/23 01/13/23 01/13/23 01/14/23 00:59 00:59 23:59 23:59 Intake Total 680 Output Total 2450 Balance -1770 - Objective General Appearance: positive: No acute distress (Disheveled) Neck: positive: Nml inspection, Other (Posterior surgical scar) Respiratory: positive: Chest non-tender, Other (Breath sounds improved, but still diminished) Cardiovascular: positive: Other (Heart sounds improved, but still diminished) Skin: positive: Color nml, No rash, Warm, Dry Extremities: positive: Non-tender - Lab Results Fish Bones: 01/14/23 04:30 01/14/23 04:30 Other Labs: Lab Results x24hrs 01/14/23 01/14/23 01/14/23 Range/Units 09:45 04:30 04:30 WBC (4.8-10.8) x10^3/uL RBC (4.70-6.10) 10^6/uL Hgb (14.0-18.0) g/dL Hct (42.0-52.0) % MCV (80.0-94.0) fL MCH (27.0-31.0) pg MCHC (32.0-36.0) g/dL RDW (12.0-15.0) % Plt Count (130-450) 10^3/uL MPV (7.4-11.4) fL Neut # (Auto) (1.5-6.6) 10^3/uL Lymph # (Auto) (1.5-3.5) 10^3/uL [place] # (Auto) (0.0-1.0) 10^3/uL Eos # (Auto) (0.0-0.7) 10^3/uL Baso # (Auto) (0.0-0.1) 10^3/uL Absolute Nucleated RBC x10^3/uL Nucleated RBC % /100WBC PT 14.4 H (9.9-12.6) secs INR 1.4 H (0.8-1.2) Bld Gas Analysis Time Sample Site ABG pH (7.35-7.45) ABG pCO2 (34-45) mmHg ABG pO2 (80-100) mmHg ABG HCO3 (22.0-26.0) mmol/L ABG Total CO2 (21.0-29.0) MMOL/L ABG O2 Saturation (94-98) % ABG Base Excess (-2.0-3.0) mmol/L Donald Test O2 Delivery Device O2 Liters/Min LPM Sodium 130 L (135-145) mmol/L Potassium 3.7 (3.5-4.5) mmol/L Chloride 98 L (101-111) mmol/L Carbon Dioxide 25 (21-32) mmol/L Anion Gap 7.0 (6-13) BUN 12 (6-20) mg/dL Creatinine 1.1 (0.6-1.3) mg/dL Estimated GFR (MDRD) 64 L (>89) Glucose 124 H (74-104) mg/dL Calcium 8.7 (8.5-10.3) mg/dL Total Bilirubin 0.8 (0.2-1.0) mg/dL Direct Bilirubin 0.16 (0.03-0.18) mg/dL AST 32 (10-42) IU/L ALT 20 (10-60) IU/L Alkaline Phosphatase 78 (42-121) IU/L Troponin I High Sens (2.3-19.7) ng/L Total Protein 6.4 (6.4-8.9) g/dL Albumin 3.4 (3.2-5.5) g/dL Globulin 3.0 (2.1-4.2) g/dL Albumin/Globulin Ratio (1.0-2.2) Fluid Source PLEURAL Fluid Color PINK Fluid Clarity HAZY Fluid WBC 459 /mm^3 Fluid RBC 15060 /mm^3 Fluid Neutrophils % 15.0 % Fluid Lymphocytes % 76.0 % Fluid Monocytes % 1.0 % Fluid Eosinophils % 2.0 % Fluid Macrophages % 3.0 % Fld Mesothelial Cell % 3.0 % Nasal Adenovirus (PCR) Nasal B. parapertussis DNA (PCR) Nasal Coronavir 229E PCR Nasal Coronavir HKU1 PCR Nasal Coronavir NL63 PCR Nasal Coronavir OC43 PCR Nasal Enterovir/Rhinovir PCR Nasal Influenza B PCR Nasal Influenza A PCR Nasal Parainfluen 1 PCR Nasal Parainfluen 2 PCR Nasal Parainfluen 3 PCR Nasal Parainfluen 4 PCR Nasal RSV (PCR) Nasal B.pertussis DNA PCR Nasal C.pneumoniae (PCR) Jamin Human Metapneumo PCR Nasal M.pneumoniae (PCR) Nasal SARS-CoV-2 (PCR) 01/14/23 01/13/23 01/13/23 Range/Units 04:30 18:40 18:20 WBC 10.3 (4.8-10.8) x10^3/uL RBC 4.30 L (4.70-6.10) 10^6/uL Hgb 14.9 (14.0-18.0) g/dL Hct 42.7 (42.0-52.0) % MCV 99.3 H (80.0-94.0) fL MCH 34.7 H (27.0-31.0) pg MCHC 34.9 (32.0-36.0) g/dL RDW 13.0 (12.0-15.0) % Plt Count 178 (130-450) 10^3/uL MPV 11.4 (7.4-11.4) fL Neut # (Auto) 8.1 H (1.5-6.6) 10^3/uL Lymph # (Auto) 0.9 L (1.5-3.5) 10^3/uL [place] # (Auto) 1.0 (0.0-1.0) 10^3/uL Eos # (Auto) 0.1 (0.0-0.7) 10^3/uL Baso # (Auto) 0.1 (0.0-0.1) 10^3/uL Absolute Nucleated RBC 0.00 x10^3/uL Nucleated RBC % 0.0 /100WBC PT (9.9-12.6) secs INR (0.8-1.2) Bld Gas Analysis Time 1848 Sample Site RIGHT RADIAL ABG pH 7.46 H (7.35-7.45) ABG pCO2 29 L (34-45) mmHg ABG pO2 77 L (80-100) mmHg ABG HCO3 20.2 L (22.0-26.0) mmol/L ABG Total CO2 21.1 (21.0-29.0) MMOL/L ABG O2 Saturation 96 (94-98) % ABG Base Excess -2.1 L (-2.0-3.0) mmol/L Donald Test POSITIVE O2 Delivery Device NASAL CANNULA O2 Liters/Min 2.00 LPM Sodium 129 L (135-145) mmol/L Potassium 4.0 (3.5-4.5) mmol/L Chloride 95 L (101-111) mmol/L Carbon Dioxide 26 (21-32) mmol/L Anion Gap 8.0 (6-13) BUN 11 (6-20) mg/dL Creatinine 1.1 (0.6-1.3) mg/dL Estimated GFR (MDRD) 64 L (>89) Glucose 122 H (74-104) mg/dL Calcium 8.9 (8.5-10.3) mg/dL Total Bilirubin 0.8 (0.2-1.0) mg/dL Direct Bilirubin (0.03-0.18) mg/dL AST 38 (10-42) IU/L ALT 23 (10-60) IU/L Alkaline Phosphatase 88 (42-121) IU/L Troponin I High Sens (2.3-19.7) ng/L Total Protein 6.9 (6.4-8.9) g/dL Albumin 3.7 (3.2-5.5) g/dL Globulin 3.2 (2.1-4.2) g/dL Albumin/Globulin Ratio 1.2 (1.0-2.2) Fluid Source Fluid Color Fluid Clarity Fluid WBC /mm^3 Fluid RBC /mm^3 Fluid Neutrophils % % Fluid Lymphocytes % % Fluid Monocytes % % Fluid Eosinophils % % Fluid Macrophages % % Fld Mesothelial Cell % % Nasal Adenovirus (PCR) Nasal B. parapertussis DNA (PCR) Nasal Coronavir 229E PCR Nasal Coronavir HKU1 PCR Nasal Coronavir NL63 PCR Nasal Coronavir OC43 PCR Nasal Enterovir/Rhinovir PCR Nasal Influenza B PCR Nasal Influenza A PCR Nasal Parainfluen 1 PCR Nasal Parainfluen 2 PCR Nasal Parainfluen 3 PCR Nasal Parainfluen 4 PCR Nasal RSV (PCR) Nasal B.pertussis DNA PCR Nasal C.pneumoniae (PCR) Jamin Human Metapneumo PCR Nasal M.pneumoniae (PCR) Nasal SARS-CoV-2 (PCR) 01/13/23 01/13/23 01/13/23 Range/Units 16:26 14:35 13:21 WBC (4.8-10.8) x10^3/uL RBC (4.70-6.10) 10^6/uL Hgb (14.0-18.0) g/dL Hct (42.0-52.0) % MCV (80.0-94.0) fL MCH (27.0-31.0) pg MCHC (32.0-36.0) g/dL RDW (12.0-15.0) % Plt Count (130-450) 10^3/uL MPV (7.4-11.4) fL Neut # (Auto) (1.5-6.6) 10^3/uL Lymph # (Auto) (1.5-3.5) 10^3/uL [place] # (Auto) (0.0-1.0) 10^3/uL Eos # (Auto) (0.0-0.7) 10^3/uL Baso # (Auto) (0.0-0.1) 10^3/uL Absolute Nucleated RBC x10^3/uL Nucleated RBC % /100WBC PT (9.9-12.6) secs INR (0.8-1.2) Bld Gas Analysis Time Sample Site ABG pH (7.35-7.45) ABG pCO2 (34-45) mmHg ABG pO2 (80-100) mmHg ABG HCO3 (22.0-26.0) mmol/L ABG Total CO2 (21.0-29.0) MMOL/L ABG O2 Saturation (94-98) % ABG Base Excess (-2.0-3.0) mmol/L Donald Test O2 Delivery Device O2 Liters/Min LPM Sodium (135-145) mmol/L Potassium (3.5-4.5) mmol/L Chloride (101-111) mmol/L Carbon Dioxide (21-32) mmol/L Anion Gap (6-13) BUN (6-20) mg/dL Creatinine (0.6-1.3) mg/dL Estimated GFR (MDRD) (>89) Glucose (74-104) mg/dL Calcium (8.5-10.3) mg/dL Total Bilirubin (0.2-1.0) mg/dL Direct Bilirubin (0.03-0.18) mg/dL AST (10-42) IU/L ALT (10-60) IU/L Alkaline Phosphatase (42-121) IU/L Troponin I High Sens 21.8 H* 17.6 (2.3-19.7) ng/L Total Protein (6.4-8.9) g/dL Albumin (3.2-5.5) g/dL Globulin (2.1-4.2) g/dL Albumin/Globulin Ratio (1.0-2.2) Fluid Source Fluid Color Fluid Clarity Fluid WBC /mm^3 Fluid RBC /mm^3 Fluid Neutrophils % % Fluid Lymphocytes % % Fluid Monocytes % % Fluid Eosinophils % % Fluid Macrophages % % Fld Mesothelial Cell % % Nasal Adenovirus (PCR) NOT DETECTED Nasal B. parapertussis DNA (PCR) NOT DETECTED Nasal Coronavir 229E PCR NOT DETECTED Nasal Coronavir HKU1 PCR NOT DETECTED Nasal Coronavir NL63 PCR NOT DETECTED Nasal Coronavir OC43 PCR NOT DETECTED Nasal Enterovir/Rhinovir PCR NOT DETECTED Nasal Influenza B PCR NOT DETECTED Nasal Influenza A PCR NOT DETECTED Nasal Parainfluen 1 PCR NOT DETECTED Nasal Parainfluen 2 PCR NOT DETECTED Nasal Parainfluen 3 PCR NOT DETECTED Nasal Parainfluen 4 PCR NOT DETECTED Nasal RSV (PCR) NOT DETECTED Nasal B.pertussis DNA PCR NOT DETECTED Nasal C.pneumoniae (PCR) NOT DETECTED Jamin Human Metapneumo PCR NOT DETECTED Nasal M.pneumoniae (PCR) NOT DETECTED Nasal SARS-CoV-2 (PCR) NOT DETECTED - Diagnostic Imaging Diagnostic Imaging Results: positive: Final report reviewed (Thoracentesis U/S, MRI chest, MRI abdomen) ABX Reporting Has patient been on IV antibiotics over the past 48 hours?: Yes Assessment/Plan - Problem List (1) Acute respiratory failure with hypoxia Impression: Pt presents to ED w/ dyspnea on exertion and family reports weakness attempting to stand, decreased inability to walk, and pt refuses to use his cane; 87% sat on room air. CT shows large L pleural effusion w/ underlying atelectasis, also multiple enlarged pulmonary nodules concerning for cancer. On admission, pt on continuous O2 via NC at 2 Lpm. Thoracentesis drained 1.6 L of fluid from pt's lung and pt now having significantly less work of breathing. Post thoracentesis CXR shows residual pulmonary edema. Plan: Pt remains on 2 Lpm via NC, continue supplemental O2. BID furosemide continued for residual pulmonary edema. Continuous telemetry and pulse oximetry ordered. Monitor pt's SpO2 and titrate oxygen as needed. Echo ordered for 01/15 to evalua te LVEF. (2) Atrial fibrillation with RVR Impression: Pt diagnosed with atrial fibrillation in 2019 and is prescribed Eliquis; pt has not required any rate control medication previously. EKG from 01/13 shows atrial fibrillation w/ rate of 133. He was given IV push diltiazem for rate control, HR responded and dropped to low 90's. Troponin trended in ED, NE ruled out, no ST elevations noted on EKG. HR today still over 100. Plan: Increase PO diltiazem QID d/t persistent borderline tachy HR. Telemetry ordered for continuous monitoring. Continue Eliquis. (3) Pleural effusion Impression: Pt's SOB has been progressively worsening leading up to admission. Imaging in ED shows large left-sided pleural effusion with underlying atelectasis vs PNA. On exam, pt's breath and heart sounds are heard better than previous day. Pt urinating large amounts w/ no complications. Thoracentesis drained 1.6 L of fluid from pt's lung. Plan: Pt on 2 Lpm via NC, continue supplemental O2, monitor via continuous oximetry. BID furosemide to continue. Await pleural fluid LDH-Protein levels. (4) Pneumonia Impression: With CXR showing infiltrates, pt started empiric treatment for PNA in ED with ceftriaxone and azithromycin. Thoracentesis performed 01/14 and culture sent. Plan: Continue empiric IV ceftriaxone and azithromycin, will tailor based on cultures. Await pleural fluid culture. (5) Alcohol withdrawal Impression: Pt reported to drink 2x glasses of wine daily for years. AST/ALT labs unremarkable. CIWA protocol with Librium ordered the evening of admission. Overnight, pt became agitated and increasingly anxious, scoring 11 on CIWA card. Pt received Librium and subsequently lorazepam; pt calmed and not required further lorazepam for today. Plan: Daily thiamine and multi-vitamin. Continue CIWA protocol and BID Librium to manage pt's withdrawal symptoms. (6) Hyponatremia Impression: This was hypovolemic hyponatremia, suspected d/t tachycardia and pt's dry mucous membranes. Pt's Na improved to 130. Plan: IV hydration via NS ordered. Furosemide ordered to reduce pleural effusion and diurese free water. Follow BMP daily. (7) Altered mental status Impression: Family reports pt had progressive confusion for past several months, increasing severely since approximately 01/07. When speaking to pt on admission, he is alert to self, believes he is currently in [place]. found pt wandering around outside on 01/09. On that day, CT head was negative. Pt was anxious today and given a Xanax, which is not prescribed for him. Pt reportedly uses CBD nightly and drinks "2x glasses of wine" daily. Plan: Continue CIWA protocol w/ PRN IV lorazepam. Continue Librium 10 mg BID scheduled. Correct sodium w/ IV NS. Assure pt is not hypoxic. (8) Melanoma Impression: Family of patient reports he had a melanoma, approximately 6x6 cm located on his posterior neck, removed at approximately 3 months ago. Family states [facility] cleared patient of residual cancer, reportedly w/ a CT scan, and family believes pt is cancer-free. ED chest CT, in addition to pleural effusion, shows multiple enlarged pulmonary nodules concerning for cancer, along with 4.5 cm liver lesion concerning for metastatic disease. MRI of abdomen shows 4.8 cm mass with worrisome characteristics; findings c oncerning for malignancy, especially in the setting of pulmonary nodules. Consider biopsy. MRI of chest shows pulmonary nodules appear similar to prior (visualized on CT from ED). No definite mass within the atelectatic left lower lobe. I presented the results of both MRI scans and had a lengthy discussion with pt's family regarding the implications and treatment planning. Pt and family are investigating oncology follow-up in [facility] as they are planning to continue pt's treatment after relocating. Plan: Thoracentesis fluid sent to pathology, results pending.
[2023-01-14] MEDS ORDERED: GADOTERATE MEGLUMINE 10 MMOL/20 ML VIAL ONE (15:45)
[2023-01-14] MEDS ORDERED: LORazepam 2 MG/ML VIAL IVP ONE (15:55)
--- NOTE | 2023-01-14 17:26 | Ultrasound Report ---
PROCEDURE: Thoracentesis Puncture INDICATIONS: L pleural effusion, hypoxia TECHNIQUE: The indications, alternatives, benefits, risks, and complications of the procedure were explained to the patient. Written informed consent was obtained and placed in the chart. The chest was examined sonographically, and an appropriate site was chosen for thoracentesis. The skin was prepared and dorothy ped in the usual sterile fashion, and 1% lidocaine was infiltrated from the skin down through the ple ural surface. A 19-gauge catheter-covered needle was then introduced into the pleural space, the cat heter was advanced and the needle was withdrawn, and thereafter pleural fluid was aspirated. The cat heter was then removed and a dressing was applied. COMPARISON: 01/13/2023 CT FINDINGS: Access site: Left hemithorax. Needle: One-Step centesis catheter with introducer needle. Fluid volume and description: Serosanguineous, 1.5 L Fluid sent for diagnostic testing: Yes Medications: 1% lidocaine for local anaesthesia. Complications: None; post-procedural chest radiograph is pending to assess for pneumothorax. IMPRESSION: Successful ultrasound-guided thoracentesis. Reviewed by: Rocco Crooks MD on 01/14/2023 5:24 PM PST Approved by: Rocco Crooks MD on 01/14/2023 5:24 PM PST Station ID: [id number]
--- NOTE | 2023-01-14 17:27 | MRI Report ---
PROCEDURE: CHEST W/WO INDICATIONS: Lung mass CONTRAST: clariscan 19.6ml TECHNIQUE: Precontrast Axial 2-D spoiled GE in- and [id number], axial breath-hold T2 FSE, axial STIR FSE. Aft er administration of contrast, axial 2-D spoiled GE with fat saturation acquired over the lesion of c howardrn. COMPARISON: None. FINDINGS: Image quality: Suboptimal due to motion artifact.. Lungs and pleura: Moderate left and small right pleural effusions. The left effusion is loculated. Th ere is complete atelectasis of the left lower lobe and mild atelectasis of the left upper lobe. Pulmo nary nodules appear similar to prior, better characterized on recent CT. No distinct mass within the atelectatic left lung. Mediastinum: Heart size is normal. No pericardial effusion. No large vessel abnormality. No mediastin al adenopathy by size criteria. Chest wall and lower neck: Thyroid is unremarkable. No axillary or supraclavicular adenopathy by size . Bones: No aggressive osseous abnormality. Abdomen: Please see dedicated abdominal MRI. IMPRESSION: Suboptimal evaluation due to motion artifact. Moderate left and small right pleural effusions. The left-sided is loculated. Pulmonary nodules appear similar to prior. No definite mass within the atelectatic left lower lobe. Reviewed by: Jacob Denton on 01/14/2023 5:25 PM PST Approved by: Jacob Denton on 01/14/2023 5:25 PM PST Station ID: [id number]
[2023-01-14] MEDS ORDERED: GADOTERATE MEGLUMINE 10 MMOL/20 ML VIAL IVP ONE (17:39)
--- NOTE | 2023-01-14 18:32 | MRI Report ---
PROCEDURE: ABDOMEN W/WO INDICATIONS: Liver masses CONTRAST: clariscan 19.6ml TECHNIQUE: Coronal ultra fast SE, axial 2D spoiled GE in- and [id number]; axial breath-hold T2 fast SE. Dynam ic axial ultra fast GE during the administration of contrast; post-contrast coronal ultra fast GE or 2D spoiled GE with fat saturation from the hepatic dome to the iliac crests. Optional diffusion weig hted imaging and ADC may be performed. COMPARISON: CT 01/13/2023 FINDINGS: Image quality: Severely suboptimal due to motion artifact. Lung bases and heart: Please see same day CT Liver: In segment 6 of the liver, there is a 4.9 cm T2 intermediate, T1 hypointense mass with periphe ral enhancement. Gallbladder and biliary tree: Not visualized. Spleen: No splenomegaly. Pancreas: No pancreatic ductal dilation. Adrenals: No adrenal nodule. Kidneys and ureters: No hydronephrosis. No renal cystic lesion which requires follow up. No solid mas s. Bowel and peritoneum: No bowel distension. No pathologic free fluid. Lymph nodes: No central or retroperitoneal adenopathy. Vessels: No infrarenal aortic aneurysm. Bones: No aggressive osseous abnormality. Other: No significant ventral hernia. IMPRESSION: Severely suboptimal evaluation due to motion artifact. 4.8 cm mass with worrisome characteristics and enhancement and T2 intermediate signal. Findings are c oncerning for malignancy, especially in the setting of pulmonary nodules. Consider biopsy. Reviewed by: Jacob Denton on 01/14/2023 6:31 PM PST Approved by: Jacob Denton on 01/14/2023 6:31 PM PST Station ID: [id number]
[2023-01-15] MEDS: LORazepam 2 MG/ML VIAL IVP PRN (00:20)
[2023-01-15] MEDS: SODIUM CHLORIDE FLUSH 0.9% 10 ML SYRINGE IVP SCH ×4 (00:41→18:00)
[2023-01-15] MEDS: SODIUM CHLORIDE 0.9% 1,000 ML IV SCH (04:55)
[2023-01-15 05:54] LABS: BASOPHILS # (AUTO) 0.1 10^3/uL (0.0-0.1); BASOPHILS % (AUTO) 0.6 %; EOSINOPHILS # (AUTO) 0.2 10^3/uL (0.0-0.7); EOSINOPHILS % (AUTO) 1.7 %; HCT - HEMATOCRIT 41.5 % (42.0-52.0); HGB - HEMOGLOBIN 14.1 g/dL (14.0-18.0); LYMPHOCYTES # (AUTO) 0.9 10^3/uL (1.5-3.5); LYMPHOCYTES % (AUTO) 8.2 %; MEAN CORPUSCULAR HEMOGLOBIN 34.1 pg (27.0-31.0); MEAN CORPUSCULAR VOLUME 100.5 fL (80.0-94.0); MONOCYTES # (AUTO) 1.1 10^3/uL (0.0-1.0); MONOCYTES % (AUTO) 10.2 %; NEUTROPHILS # (AUTO) 8.5 10^3/uL (1.5-6.6); NEUTROPHILS % (AUTO) 78.7 %; PLT - PLATELET COUNT 208 10^3/uL (130-450); RED BLOOD COUNT 4.13 10^6/uL (4.70-6.10); RED CELL DISTRIBUTION WIDTH 12.5 % (12.0-15.0); WHITE BLOOD COUNT 10.8 x10^3/uL (4.8-10.8)
[2023-01-15 06:03] LABS: CREATININE 1.2 mg/dL (0.6-1.3); POTASSIUM 3.6 mmol/L (3.5-4.5)
[2023-01-15] MEDS: FUROSEMIDE 20 MG/2 ML VIAL IVP SCH ×2 (06:17→15:30)
[2023-01-15] MEDS: AZITHROMYCIN INJ 500 MG in SODIUM CHLORIDE 0.9% 250 ML IV SCH (08:59)
[2023-01-15] MEDS: COD LIVER OIL/ZINC OXIDE 113 GM TUBE TOP PRN ×2 (09:00→21:38)
[2023-01-15] MEDS: diltiaZEM 30 MG TABLET PO SCH ×4 (09:01→21:25)
[2023-01-15] MEDS: PRENATAL VITAMIN TABLET PO SCH (09:01)
[2023-01-15] MEDS: THIAMINE 100 MG TABLET PO SCH (09:01)
[2023-01-15] MEDS: APIXABAN 5 MG TABLET PO SCH ×2 (09:01→21:25)
[2023-01-15] MEDS: chlordiazePOXIDE 5 MG CAPSULE PO SCH ×2 (09:02→09:20)
[2023-01-15 10:09] LABS: PROTEIN BODY FLUID 3.8 g/dL (.)
--- NOTE | 2023-01-15 11:12 | XRAY Report ---
PROCEDURE: Chest 1 View X-Ray INDICATIONS: Pleural effusion, s/p thoracentesis TECHNIQUE: One view of the chest was acquired. COMPARISON: Chest radiograph 01/13/2023 and 01/14/2023, CT 01/13/2023, MRI 01/14/2023 FINDINGS: Surgical changes and devices: None. Lungs and pleura: Moderate left-sided pleural effusion appears similar in size when compared to the radiographs from 01/14/2023 and decreased when compared to 01/13/2023. No pneumothorax. Mild interstiti al prominence. Pulmonary nodules are better demonstrated on prior cross-sectional studies. Mediastinum: Mediastinal contours appear normal. Heart size is stable. Bones and chest wall: No suspicious bony lesions. Overlying soft tissues appear unremarkable. IMPRESSION: Moderate left pleural effusion appears similar in size when compared to 01/14/2023. No pneumothorax. Reviewed by: Luis Alfredo Gustafson MD on 01/15/2023 11:11 AM PST Approved by: Luis Alfredo Gustafson MD on 01/15/2023 11:11 AM PST Station ID: [id number]
--- NOTE | 2023-01-15 12:36 | PROVIDER PROGRESS NOTE ---
Assessment/Plan - Problem List (1) Acute respiratory failure with hypoxia Assessment/Plan: Acute respiratory failure with hypoxia Underwent thoracentesis on 01/16 with removal of 1.6 L of pleural fluid. Patient remains on minimal supplemental oxygen. Repeat chest x-ray was performed which was unchanged from previous. Currently pending pleural fluid culture and pathology. Etiology is believed to be from pneumonia versus pulmonary nodules. Continue on IV Lasix. (2) Alcohol withdrawal Assessment/Plan: Discontinue Librium per family request. I do not think he is withdrawing. He has a prior history of drinking 2x glasses of wine daily. Continue thaimine and multivitamin supplements. (3) Altered mental status Qualifiers: Altered mental status type: disorientation Qualified Code(s): R41.0 - Disorientation, unspecified Assessment/Plan: Family reports that patient's mental status has been declining for several years. A CT head was performed while in the ED which was unremarkable. He will likely need an MRI of his brain to rule out metastatic lesions. There is also concern for Warnicke/Korsakoff due to his daily drinking. Family did not want an MRI of his brain performed while inpatient as to not overwhelm the patient himself. (4) Atrial fibrillation with RVR Assessment/Plan: Patient's tachycardia has improved with oral diltiazem 4 times daily. He also remains on Eliquis. Continue to monitor on telemetry (5) Hyponatremia Assessment/Plan: Have discontinued his IV normal saline due to orthopnea. We will continue to monitor his sodium. 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 An MRI of his abdomen and lung was performed during this admission. MRI of the abdomen shows a 4.8 cm mass which is worrisome. This will eventually need to be biopsied. There is also evidence of nodules on his lung MRI. Family would like to get this taken care of in [place]. However there will be several social challenges. (7) Pleural effusion Assessment/Plan: Culture and pathology pending. 1.6L was taken off via thoracentesis on 01/14. (8) Pneumonia Qualifiers: Pneumonia type: due to unspecified organism Laterality: left Lung location: lower lobe of lung Qualified Code(s): J18.9 - Pneumonia, unspecified organism Assessment/Plan: Continue IV ceftriaxone and azithromycin. He is on minimal oxygen he can likely be weaned over the next 24 hours. His pleural effusion culture is currently pending. (9) Weakness Assessment/Plan: Case was discussed with PT/OT. They are preliminarily recommending postacute given his general decline in cognition as well as profound weakness. He is also having a left-sided foot drop. - Current Meds Current Meds: Current Medications Generic Name Dose Route Start Last Admin Trade Name Freq PRN Reason Stop Dose Admin Apixaban 5 mg 01/13/23 21:00 01/15/23 09:01 Apixaban 5 Mg Tablet PO 5 mg BID JUNITO Administration Diltiazem HCl 90 mg 01/14/23 13:00 01/15/23 09:01 Diltiazem 30 Mg Tablet PO 90 mg QID JUNITO Administration Furosemide 20 mg 01/14/23 14:00 01/15/23 06:17 Furosemide 20 Mg/2 Ml Vial IVP 20 mg BIDDIURETIC JUNITO Administration Azithromycin 500 mg/ Sodium 250 mls @ 250 mls/hr 01/14/23 09:00 01/15/23 10:32 Chloride IV 01/16/23 00:01 Infused DAILY JUNITO Infusion Ceftriaxone Sodium 1 gm/ 100 mls @ 200 mls/hr 01/14/23 14:00 01/14/23 15:35 Sodium Chloride IV Infused Q24H JUNITO Infusion Lorazepam 1 mg 01/13/23 18:12 01/15/23 00:20 Lorazepam 2 Mg/Ml Vial IVP 1 mg Q30M PRN Administration CIWA >8 Protocol Multivit/Folic Acid/Iron 1 tab 01/14/23 09:00 01/15/23 09:01 Vitamin Tablet PO 1 tab DAILY JUNITO Administration Sodium Chloride 10 ml 01/13/23 17:00 01/15/23 08:59 Sodium Chloride Flush 0.9% 10 Ml Syringe IVP 10 ml 0100,0900,1700 JUNITO Administration Thiamine HCl 100 mg 01/14/23 09:00 01/15/23 09:01 Thiamine 100 Mg Tablet PO 100 mg DAILY JUNITO Administration Zinc Oxide 113 gm 01/14/23 13:56 01/15/23 09:00 Cod Liver Oil/Zinc Oxide 113 Gm Tube TOP 1 applic PRN PRN Administration Skin Care - Lab Result Fish Bone Diagrams: 01/15/23 05:22 01/15/23 05:22 - Additional Planning Condition/Complexity: Stable My Orders: My Active Orders 01/15/23 Evaluate and Treat OT [OT] Routine Evaluate and Treat PT [PT] Routine 01/15/23 08:32 BiPAP/CPAP [RC] HS Consult/Specialty: OT, PT Subjective - Subjective Patient Reports: Feeling Better (Nursing reported orthopnea. Will discontinue his IV fluids. Repeat CXR performed this morning was unchanged from previous. Lengthy discussion with family regarding plan of care.), Resting Comfortably (Patient did have some orthopnea reported by nursing. CXR performed this morning with unchanged from previous.) Nursing Reports: Confused Objective Vital Signs: Vital Signs - 24 hr 01/14/23 01/14/23 01/14/23 13:40 15:00 17:00 Temperature 36.3 C L Heart Rate [ 83 93 Brachial] Respiratory 22 Rate Blood Pressure 114/59 L Blood Pressure [Left Brachial artery] Blood Pressure 114/59 L [Left] O2 Saturation 98 97 If not protocol 2 : Oxygen Flow, liters/minute 01/14/23 01/14/23 01/14/23 17:20 20:42 20:45 Temperature 36.5 C Heart Rate [ 83 Brachial] Respiratory 18 Rate Blood Pressure 110/65 Blood Pressure [Left Brachial artery] Blood Pressure 110/65 [Left] O2 Saturation 97 97 If not protocol : Oxygen Flow, liters/minute 01/15/23 01/15/23 01/15/23 00:07 05:00 08:24 Temperature 37.1 C 36.7 C 36.7 C Heart Rate [ 82 84 102 H Brachial] Respiratory 22 22 22 Rate Blood Pressure Blood Pressure 119/61 127/64 116/60 [Left Brachial artery] Blood Pressure [Left] O2 Saturation 94 96 95 If not protocol 2 2 2 : Oxygen Flow, liters/minute 01/15/23 01/15/23 09:01 11:16 Temperature 36.3 C L Heart Rate [ 99 Brachial] Respiratory 20 Rate Blood Pressure 116/60 Blood Pressure 118/66 [Left Brachial artery] Blood Pressure [Left] O2 Saturation 95 If not protocol : Oxygen Flow, liters/minute Oxygen O2 Source Room air Oxygen Flow Rate 2 I&O (Last 24 Hrs): Intake and Output Totals x24h 1101/14/23 01/15/23 23:59 23:59 23:59 Intake Total 0761.333 865.834 Output Total 7970 1175 Balance -666.667 -309.166 General: Alert (Alert and oriented X1 (person).), Cooperative, No acute distress HEENT: Atraumatic, PERRLA, EOMI Neck: Supple, No JVD, No thyromegaly, +2 carotid pulse wo bruit, No LAD Lymphatic: no adenopathy Neuro: Alert, CN 2-12 Grossly Intact, Oriented Times 3 Cardiovascular: Regular rate, Normal S1, Normal S2, No murmurs Respiratory: Chest non-tender, No respiratory distress, Breath sounds nml Abdomen: Normal bowel sounds, Soft, No tenderness, No hepatospenomegaly, No masses Genitourinary: Normal Inspection, No Mass, No Discharge, No Meatal Blood, No Hernia Rectal: Non-Tender Extremities: No clubbing, No cyanosis, No edema, Normal pulses, No tenderness/swelling Skin: No rashes, No breakdown, No significant lesion - Results Results: Laboratory Results WBC 10.8 x10^3/uL (4.8-10.8) 01/15/23 05:22 RBC 4.13 10^6/uL (4.70-6.10) L 01/15/23 05:22 Hgb 14.1 g/dL (14.0-18.0) 01/15/23 05:22 Hct 41.5 % (42.0-52.0) L 01/15/23 05:22 MCV 100.5 fL (80.0-94.0) H 01/15/23 05:22 MCH 34.1 pg (27.0-31.0) H 01/15/23 05:22 MCHC 34.0 g/dL (32.0-36.0) 01/15/23 05:22 RDW 12.5 % (12.0-15.0) 01/15/23 05:22 Plt Count 208 10^3/uL (130-450) 01/15/23 05:22 MPV 11.0 fL (7.4-11.4) 01/15/23 05:22 Neut # (Auto) 8.5 10^3/uL (1.5-6.6) H 01/15/23 05:22 Lymph # (Auto) 0.9 10^3/uL (1.5-3.5) L 01/15/23 05:22 [place] # (Auto) 1.1 10^3/uL (0.0-1.0) H 01/15/23 05:22 Eos # (Auto) 0.2 10^3/uL (0.0-0.7) 01/15/23 05:22 Baso # (Auto) 0.1 10^3/uL (0.0-0.1) 01/15/23 05:22 Absolute Nucleated RBC 0.00 x10^3/uL 01/15/23 05: Nucleated RBC % 0.0 /100WBC 01/15/23 05:22 PT 14.4 secs (9.9-12.6) H 01/14/23 04:30 INR 1.4 (0.8-1.2) H 01/14/23 04:30 Bld Gas Analysis Time 1848 01/13/23 18:40 Sample Site RIGHT RADIAL 01/13/23 18:40 ABG pH 7.46 (7.35-7.45) H 01/13/23 18:40 ABG pCO2 29 mmHg (34-45) L 01/13/23 18:40 ABG pO2 77 mmHg (80-100) L 01/13/23 18:40 ABG HCO3 20.2 mmol/L (22.0-26.0) L 01/13/23 18:40 ABG Total CO2 21.1 MMOL/L (21.0-29.0) 01/13/23 18:40 ABG O2 Saturation 96 % (94-98) 01/13/23 18:40 ABG Base Excess -2.1 mmol/L (-2.0-3.0) L 01/13/23 18:40 Donald Test POSITIVE 01/13/23 18:40 O2 Delivery Device NASAL CANNULA 01/13/23 18:40 O2 Liters/Min 2.00 LPM 01/13/23 18:40 Sodium 129 mmol/L (135-145) L 01/15/23 05:22 Potassium 3.6 mmol/L (3.5-4.5) 01/15/23 05:22 Chloride 96 mmol/L (101-111) L 01/15/23 05:22 Carbon Dioxide 27 mmol/L (21-32) 01/15/23 05:22 Anion Gap 6.0 (6-13) 01/15/23 05:22 BUN 13 mg/dL (6-20) 01/15/23 05:22 Creatinine 1.2 mg/dL (0.6-1.3) 01/15/23 05:22 Estimated GFR (MDRD) 58 (>89) L 01/15/23 05:22 Glucose 100 mg/dL (74-104) 01/15/23 05:22 Calcium 8.0 mg/dL (8.5-10.3) L 01/15/23 05:22 Total Bilirubin 0.8 mg/dL (0.2-1.0) 01/14/23 04:30 Direct Bilirubin 0.16 mg/dL (0.03-0.18) 01/14/23 04:30 AST 32 IU/L (10-42) 01/14/23 04:30 ALT 20 IU/L (10-60) 01/14/23 04:30 Alkaline Phosphatase 78 IU/L (42-121) 01/14/23 04:30 Troponin I High Sens 21.8 ng/L (2.3-19.7) H* 01/13/23 16:26 B-Natriuretic Peptide 59 pg/mL (5-100) 01/13/23 13:21 Total Protein 6.4 g/dL (6.4-8.9) 01/14/23 04:30 Albumin 3.4 g/dL (3.2-5.5) 01/14/23 04:30 Globulin 3.0 g/dL (2.1-4.2) 01/14/23 04:30 Albumin/Globulin Ratio 1.2 (1.0-2.2) 01/13/23 18:20 Lipase 33 U/L (11-82) 01/13/23 13:21 TSH 4.55 uIU/mL (0.34-5.60) 01/13/23 13:21 Free T4 Direct 0.87 ng/dL (0.58-1.64) 01/13/23 13:21 Fluid Source PLEURAL 01/14/23 09:45 Fluid Color PINK 01/14/23 09:45 Fluid Clarity HAZY 01/14/23 09:45 Fluid WBC 459 /mm^3 01/14/23 09:45 Fluid RBC 26604 /mm^3 01/14/23 09:45 Fluid Neutrophils % 15.0 % 01/14/23 09:45 Fluid Lymphocytes % 76.0 % 01/14/23 09:45 Fluid Monocytes % 1.0 % 01/14/23 09:45 Fluid Eosinophils % 2.0 % 01/14/23 09:45 Fluid Macrophages % 3.0 % 01/14/23 09:45 Fld Mesothelial Cell % 3.0 % 01/14/23 09:45 Fluid Glucose 88 mg/dL (.) 01/14/23 09:45 Fluid Total Protein 3.8 g/dL (.) 01/14/23 09:45 Fluid LDH 133 IU/L (.) 01/14/23 09:45 Nasal Adenovirus (PCR) NOT DETECTED 01/13/23 14:35 Nasal B. parapertussis DNA (PCR) NOT DETECTED 01/13/23 14:35 Nasal Coronavir 229E PCR NOT DETECTED 01/13/23 14:35 Nasal Coronavir HKU1 PCR NOT DETECTED 01/13/23 14:35 Nasal Coronavir NL63 PCR NOT DETECTED 01/13/23 14:35 Nasal Coronavir OC43 PCR NOT DETECTED 01/13/23 14:35 Nasal Enterovir/Rhinovir PCR NOT DETECTED 01/13/23 14:35 Nasal Influenza B PCR NOT DETECTED 01/13/23 14:35 Nasal Influenza A PCR NOT DETECTED 01/13/23 14:35 Nasal Parainfluen 1 PCR NOT DETECTED 01/13/23 14:35 Nasal Parainfluen 2 PCR NOT DETECTED 01/13/23 14:35 Nasal Parainfluen 3 PCR NOT DETECTED 01/13/23 14:35 Nasal Parainfluen 4 PCR NOT DETECTED 01/13/23 14:35 Nasal RSV (PCR) NOT DETECTED 01/13/23 14:35 Nasal B.pertussis DNA PCR NOT DETECTED 01/13/23 14:35 Nasal C.pneumoniae (PCR) NOT DETECTED 01/13/23 14:35 Jamin Human Metapneumo PCR NOT DETECTED 01/13/23 14:35 Nasal M.pneumoniae (PCR) NOT DETECTED 01/13/23 14:35 Nasal SARS-CoV-2 (PCR) NOT DETECTED 01/13/23 14:35 Sepsis Event Note (H) - Evaluation Current Stage of Sepsis: Ruled out ABX Reporting Has patient been on IV antibiotics over the past 48 hours?: Yes Current Medications - Current Medications Current Medications: Active Medications Generic Name Dose Route Start Last Admin Trade Name Freq PRN Reason Stop Dose Admin Acetaminophen 650 mg 01/13/23 15:52 Acetaminophen 325 Mg Tablet PO Q4HR PRN Pain 1 to 4, or Fever Apixaban 5 mg 01/13/23 21:00 01/15/23 09:01 Apixaban 5 Mg Tablet PO 5 mg BID JUNITO Administration Diltiazem HCl 90 mg 01/14/23 13:00 01/15/23 09:01 Diltiazem 30 Mg Tablet PO 90 mg QID JUNITO Administration Furosemide 20 mg 01/14/23 14:00 01/15/23 06:17 Furosemide 20 Mg/2 Ml Vial IVP 20 mg BIDDIURETIC JUNITO Administration Azithromycin 500 mg/ Sodium 250 mls @ 250 mls/hr 01/14/23 09:00 01/15/23 10:32 Chloride IV 01/16/23 00:01 Infused DAILY JUNITO Infusion Ceftriaxone Sodium 1 gm/ 100 mls @ 200 mls/hr 01/14/23 14:00 01/14/23 15:35 Sodium Chloride IV Infused Q24H JUNITO Infusion Lorazepam 1 mg 01/13/23 18:12 01/15/23 00:20 Lorazepam 2 Mg/Ml Vial IVP 1 mg Q30M PRN Administration CIWA >8 Protocol Mineral Oil 1 applic 01/14/23 21:33 Min Oil/Dimethicon/Coconut Oil 92 Gm Tube TOP PRN PRN Skin Care Ondansetron HCl 4 mg 01/13/23 15:52 Ondansetron 4 Mg/2 Ml Vial IVP Q6HR PRN Nausea / Vomiting Multivit/Folic Acid/Iron 1 tab 01/14/23 09:00 01/15/23 09:01 Vitamin Tablet PO 1 tab DAILY JUNITO Administration Sodium Chloride 10 ml 01/13/23 15:52 Sodium Chloride Flush 0.9% 10 Ml Syringe IVP PRN PRN NEEDED PER PROVIDER ORDERS Sodium Chloride 10 ml 01/13/23 17:00 01/15/23 08:59 Sodium Chloride Flush 0.9% 10 Ml Syringe IVP 10 ml 0100,0900,1700 JUNITO Administration Thiamine HCl 100 mg 01/14/23 09:00 01/15/23 09:01 Thiamine 100 Mg Tablet PO 100 mg DAILY JUNITO Administration Zinc Oxide 113 gm 01/14/23 13:56 01/15/23 09:00 Cod Liver Oil/Zinc Oxide 113 Gm Tube TOP 1 applic PRN PRN Administration Skin Care Apixaban [Eliquis] 5 mg PO BID 01/13/23 RX: Testosterone Cypionate 0.75 ml IM UD 01/14/23
[2023-01-15] MEDS ORDERED: diphenhydrAMINE 25 MG CAPSULE PO PRN (14:27)
[2023-01-15] MEDS: cefTRIAXone 1 GM in SODIUM CHLORIDE 0.9% MINIBAG 100 ML IV SCH (15:30)
[2023-01-15] MEDS: MIN OIL/DIMETHICON/COCONUT OIL 92 GM TUBE TOP PRN (16:20)
[2023-01-16] MEDS: SODIUM CHLORIDE FLUSH 0.9% 10 ML SYRINGE IVP SCH ×2 (01:05→08:29)
[2023-01-16 05:53] LABS: BASOPHILS # (AUTO) 0.1 10^3/uL (0.0-0.1); BASOPHILS % (AUTO) 0.5 %; EOSINOPHILS # (AUTO) 0.2 10^3/uL (0.0-0.7); EOSINOPHILS % (AUTO) 1.7 %; HCT - HEMATOCRIT 41.5 % (42.0-52.0); HGB - HEMOGLOBIN 14.4 g/dL (14.0-18.0); LYMPHOCYTES # (AUTO) 0.9 10^3/uL (1.5-3.5); LYMPHOCYTES % (AUTO) 8.3 %; MEAN CORPUSCULAR HEMOGLOBIN 35.3 pg (27.0-31.0); MEAN CORPUSCULAR HGB CONC 34.7 g/dL (32.0-36.0); MEAN CORPUSCULAR VOLUME 101.7 fL (80.0-94.0); MEAN PLATELET VOLUME 10.8 fL (7.4-11.4); MONOCYTES % (AUTO) 8.6 %; NEUTROPHILS % (AUTO) 80.5 %; PLT - PLATELET COUNT 198 10^3/uL (130-450); RED BLOOD COUNT 4.08 10^6/uL (4.70-6.10); RED CELL DISTRIBUTION WIDTH 12.7 % (12.0-15.0); WHITE BLOOD COUNT 11.2 x10^3/uL (4.8-10.8)
[2023-01-16 06:05] LABS: CREATININE 1.3 mg/dL (0.6-1.3); POTASSIUM 3.8 mmol/L (3.5-4.5)
[2023-01-16] MEDS: FUROSEMIDE 20 MG/2 ML VIAL IVP SCH ×2 (06:17→13:27)
[2023-01-16] MEDS: COD LIVER OIL/ZINC OXIDE 113 GM TUBE TOP PRN ×3 (06:19→14:50)
[2023-01-16] MEDS: THIAMINE 100 MG TABLET PO SCH (08:28)
[2023-01-16] MEDS: APIXABAN 5 MG TABLET PO SCH ×2 (08:28→21:17)
[2023-01-16] MEDS: PRENATAL VITAMIN TABLET PO SCH (08:28)
[2023-01-16] MEDS: diltiaZEM 30 MG TABLET PO SCH ×4 (08:28→21:17)
[2023-01-16] MEDS: cefTRIAXone 1 GM in SODIUM CHLORIDE 0.9% MINIBAG 100 ML IV SCH (13:28)
--- NOTE | 2023-01-16 16:20 | PROVIDER PROGRESS NOTE ---
Assessment/Plan - Problem List (1) Acute respiratory failure with hypoxia Assessment/Plan: Underwent thoracentesis on 01/16 with removal of 1.6 L of pleural fluid. Weaned off of oxygen. Culture thus far negative. Pathology pending. (2) Alcohol withdrawal Assessment/Plan: --Discontinue Librium per family request. I do not think he is withdrawing. He has a prior history of drinking 2x glasses of wine daily. Continue thaimine and multivitamin supplements. (3) Altered mental status Qualifiers: Altered mental status type: disorientation Qualified Code(s): R41.0 - Disorientation, unspecified Assessment/Plan: -- Encephalopathy is much improved today after using CPAP overnight. -- I did recommend outpatient follow-up with a neurologist given that his condition and mental status has been declining for several years. -- Family do not want an MRI of his brain performed while inpatient. (4) Atrial fibrillation with RVR Assessment/Plan: --Continue diltiazem. Heart rate well controlled. --Anticoagulated with Eliquis. (5) Hyponatremia Assessment/Plan: --Sodium is stable. (6) Melanoma Qualifiers: Melanoma location: neck Qualified Code(s): C43.4 - Malignant melanoma of scalp and neck Assessment/Plan: --Remote history of a melanoma excision on his posterior neck. An MRI of his abdomen and lung was performed during this admission. MRI of the abdomen shows a 4.8 cm mass which is worrisome. This will eventually need to be biopsied. There is also evidence of nodules on his lung MRI. Family would like to get this taken care of in [place]. However there will be several social challenges. (7) Pleural effusion Assessment/Plan: --Culture and pathology pending. 1.6L was taken off via thoracentesis on 01/14. (8) Pneumonia Qualifiers: Pneumonia type: due to unspecified organism Laterality: left Lung location: lower lobe of lung Qualified Code(s): J18.9 - Pneumonia, unspecified organism Assessment/Plan: --Continue IV ceftriaxone and azithromycin. He is on minimal oxygen he can likely be weaned over the next 24 hours. His pleural effusion culture is negative. (9) Weakness Assessment/Plan: --Case was discussed with PT/OT. They are preliminarily recommending postacute given his general decline in cognition as well as profound weakness. He is also having a left-sided foot drop. --High risk for falls. - Current Meds Current Meds: Current Medications Generic Name Dose Route Start Last Admin Trade Name Marianoq PRN Reason Stop Dose Admin Apixaban 5 mg 01/13/23 21:00 01/16/23 08:28 Apixaban 5 Mg Tablet PO 5 mg BID JUNITO Administration Diltiazem HCl 90 mg 01/14/23 13:00 01/16/23 13:27 Diltiazem 30 Mg Tablet PO 90 mg QID JUNITO Administration Diphenhydramine HCl 25 mg 01/15/23 14:27 01/15/23 14:33 Diphenhydramine 25 Mg Capsule PO 25 mg Q4HR PRN Administration Allergy Symptoms Furosemide 20 mg 01/14/23 14:00 01/16/23 13:27 Furosemide 20 Mg/2 Ml Vial IVP 20 mg BIDDIURETIC JUNITO Administration Ceftriaxone Sodium 1 gm/ 100 mls @ 200 mls/hr 01/14/23 14:00 01/16/23 13:59 Sodium Chloride IV Infused Q24H JUNITO Infusion Lorazepam 1 mg 01/13/23 18:12 01/15/23 00:20 Lorazepam 2 Mg/Ml Vial IVP 1 mg Q30M PRN Administration CIWA >8 Protocol Mineral Oil 1 applic 01/14/23 21:33 01/15/23 16:20 Min Oil/Dimethicon/Coconut Oil 92 Gm Tube TOP 1 applic PRN PRN Administration Skin Care Multivit/Folic Acid/Iron 1 tab 01/14/23 09:00 01/16/23 08:28 Vitamin Tablet PO 1 tab DAILY JUNITO Administration Sodium Chloride 10 ml 01/13/23 15:52 01/16/23 06:19 Sodium Chloride Flush 0.9% 10 Ml Syringe IVP 10 ml PRN PRN Administration NEEDED PER PROVIDER ORDERS Sodium Chloride 10 ml 01/13/23 17:00 01/16/23 08:29 Sodium Chloride Flush 0.9% 10 Ml Syringe IVP 10 ml 0100,0900,1700 JUNITO Administration Thiamine HCl 100 mg 01/14/23 09:00 01/16/23 08:28 Thiamine 100 Mg Tablet PO 100 mg DAILY JUNITO Administration Zinc Oxide 113 gm 01/14/23 13:56 01/16/23 14:50 Cod Liver Oil/Zinc Oxide 113 Gm Tube TOP 1 applic PRN PRN Administration Skin Care - Lab Result Lab results reviewed: Yes Fish Bone Diagrams: 01/16/23 05:50 01/16/23 05:50 - Additional Planning Condition/Complexity: Stable Subjective - Subjective Patient Reports: Feeling Better (Mental status improved today. He did use his CPAP overnight. No fevers or chills. He is off oxygen.), Resting Comfortably Objective Vital Signs: Vital Signs - 24 hr 01/15/23 01/15/23 01/15/23 18:00 21:25 21:35 Temperature 36.3 C L 36.9 C Heart Rate Heart Rate [ 92 92 Brachial] Respiratory 20 20 Rate Blood Pressure 132/74 H 141/61 H Blood Pressure 132/74 H [Brachial artery] O2 Saturation 95 94 01/15/23 01/16/23 01/16/23 22:01 00:37 06:23 Temperature 36.4 C L 36.2 C L Heart Rate 74 Heart Rate [ 72 78 Brachial] Respiratory 16 20 Rate Blood Pressure Blood Pressure 124/52 L 112/59 L [Brachial artery] O2 Saturation 91 L 91 L 01/16/23 01/16/23 01/16/23 08:28 08:49 12:24 Temperature 36.5 C 36.5 C Heart Rate Heart Rate [ 88 73 Brachial] Respiratory 20 20 Rate Blood Pressure 123/57 L Blood Pressure 123/57 L 125/65 [Brachial artery] O2 Saturation 92 92 01/16/23 01/16/23 13:27 13:30 Temperature Heart Rate Heart Rate [ Brachial] Respiratory Rate Blood Pressure 138/65 H Blood Pressure [Brachial artery] O2 Saturation 96 Oxygen O2 Source Room air Oxygen Flow Rate 2 I&O (Last 24 Hrs): Intake and Output Totals x24h 01/14/23 01/15/23 01/16/23 23:59 23:59 23:59 Intake Total 4497.328 2125.834 320 Output Total 2650 1825 1250 [facility] -[phone] -[phone] -930 General: Alert, Cooperative, No acute distress HEENT: Atraumatic, EOMI Neuro: Alert, CN 2-12 Grossly Intact Cardiovascular: Regular rate, No murmurs Respiratory: Chest non-tender, No respiratory distress, Breath sounds nml Abdomen: Normal bowel sounds, Soft, No tenderness, No hepatospenomegaly, No masses Skin: No rashes, No breakdown, No significant lesion - Results Results: Laboratory Results WBC 11.2 x10^3/uL (4.8-10.8) H 01/16/23 05:50 RBC 4.08 10^6/uL (4.70-6.10) L 01/16/23 05:50 Hgb 14.4 g/dL (14.0-18.0) 01/16/23 05:50 Hct 41.5 % (42.0-52.0) L 01/16/23 05:50 MCV 101.7 fL (80.0-94.0) H 01/16/23 05:50 MCH 35.3 pg (27.0-31.0) H 01/16/23 05:50 MCHC 34.7 g/dL (32.0-36.0) 01/16/23 05:50 RDW 12.7 % (12.0-15.0) 01/16/23 05:50 Plt Count 198 10^3/uL (130-450) 01/16/23 05:50 MPV 10.8 fL (7.4-11.4) 01/16/23 05:50 Neut # (Auto) 9.0 10^3/uL (1.5-6.6) H 01/16/23 05:50 Lymph # (Auto) 0.9 10^3/uL (1.5-3.5) L 01/16/23 05:50 Refugio # (Auto) 1.0 10^3/uL (0.0-1.0) 01/16/23 05:50 Eos # (Auto) 0.2 10^3/uL (0.0-0.7) 01/16/23 05:50 Baso # (Auto) 0.1 10^3/uL (0.0-0.1) 01/16/23 05:50 Absolute Nucleated RBC 0.00 x10^3/uL 01/16/23 05:50 Nucleated RBC % 0.0 /100WBC 01/16/23 05:50 PT 14.4 secs (9.9-12.6) H 01/14/23 04:30 INR 1.4 (0.8-1.2) H 01/14/23 04:30 Bld Gas Analysis Time 1848 11/05/23 18:40 Sample Site RIGHT RADIAL 01/13/23 18:40 ABG pH 7.46 (7.35-7.45) H 01/13/23 18:40 ABG pCO2 29 mmHg (34-45) L 01/13/23 18:40 ABG pO2 77 mmHg (80-100) L 01/13/23 18:40 ABG HCO3 20.2 mmol/L (22.0-26.0) L 01/13/23 18:40 ABG Total CO2 21.1 MMOL/L (21.0-29.0) 01/13/23 18:40 ABG O2 Saturation 96 % (94-98) 01/13/23 18:40 ABG Base Excess -2.1 mmol/L (-2.0-3.0) L 01/13/23 18:40 Donald Test POSITIVE 01/13/23 18:40 O2 Delivery Device NASAL CANNULA 01/13/23 18:40 O2 Liters/Min 2.00 LPM 01/13/23 18:40 Sodium 130 mmol/L (135-145) L 01/16/23 05:50 Potassium 3.8 mmol/L (3.5-4.5) 01/16/23 05:50 Chloride 96 mmol/L (101-111) L 01/16/23 05:50 Carbon Dioxide 28 mmol/L (21-32) 01/16/23 05:50 Anion Gap 6.0 (6-13) 01/16/23 05:50 BUN 14 mg/dL (6-20) 01/16/23 05:50 Creatinine 1.3 mg/dL (0.6-1.3) 01/16/23 05:50 Estimated GFR (MDRD) 53 (>89) L 01/16/23 05:50 Glucose 106 mg/dL (74-104) H 01/16/23 05:50 Calcium 8.0 mg/dL (8.5-10.3) L 01/16/23 05:50 Total Bilirubin 0.8 mg/dL (0.2-1.0) 01/14/23 04:30 Direct Bilirubin 0.16 mg/dL (0.03-0.18) 01/14/23 04:30 AST 32 IU/L (10-42) 01/14/23 04:30 ALT 20 IU/L (10-60) 01/14/23 04:30 Alkaline Phosphatase 78 IU/L (42-121) 01/14/23 04:30 Troponin I High Sens 21.8 ng/L (2.3-19.7) H* 01/13/23 16:26 B-Natriuretic Peptide 59 pg/mL (5-100) 01/13/23 13:21 Total Protein 6.4 g/dL (6.4-8.9) 01/14/23 04:30 Albumin 3.4 g/dL (3.2-5.5) 01/14/23 04:30 Globulin 3.0 g/dL (2.1-4.2) 01/14/23 04:30 Albumin/Globulin Ratio 1.2 (1.0-2.2) 01/13/23 18:20 Lipase 33 U/L (11-82) 01/13/23 13:21 TSH 4.55 uIU/mL (0.34-5.60) 01/13/23 13:21 Free T4 Direct 0.87 ng/dL (0.58-1.64) 01/13/23 13:21 Fluid Source PLEURAL 01/14/23 09:45 Fluid Color PINK 01/14/23 09:45 Fluid Clarity HAZY 01/14/23 09:45 Fluid WBC 459 /mm^3 01/14/23 09:45 Fluid RBC 05121 /mm^3 01/14/23 09:45 Fluid Neutrophils % 15.0 % 01/14/23 09:45 Fluid Lymphocytes % 76.0 % 01/14/23 09:45 Fluid Monocytes % 1.0 % 01/14/23 09:45 Fluid Eosinophils % 2.0 % 01/14/23 09:45 Fluid Macrophages % 3.0 % 01/14/23 09:45 Fld Mesothelial Cell % 3.0 % 01/14/23 09:45 Fluid Glucose 88 mg/dL (.) 01/14/23 09:45 Fluid Total Protein 3.8 g/dL (.) 01/14/23 09:45 Fluid LDH 133 IU/L (.) 01/14/23 09:45 Nasal Adenovirus (PCR) NOT DETECTED 01/13/23 14:35 Nasal B. parapertussis DNA (PCR) NOT DETECTED 01/13/23 14:35 Nasal Coronavir 229E PCR NOT DETECTED 01/13/23 14:35 Nasal Coronavir HKU1 PCR NOT DETECTED 01/13/23 14:35 Nasal Coronavir NL63 PCR NOT DETECTED 01/13/23 14:35 Nasal Coronavir OC43 PCR NOT DETECTED 01/13/23 14:35 Nasal Enterovir/Rhinovir PCR NOT DETECTED 01/13/23 14:35 Nasal Influenza B PCR NOT DETECTED 01/13/23 14:35 Nasal Influenza A PCR NOT DETECTED 01/13/23 14:35 Nasal Parainfluen 1 PCR NOT DETECTED 01/13/23 14:35 Nasal Parainfluen 2 PCR NOT DETECTED 01/13/23 14:35 Nasal Parainfluen 3 PCR NOT DETECTED 01/13/23 14:35 Nasal Parainfluen 4 PCR NOT DETECTED 01/13/23 14:35 Nasal RSV (PCR) NOT DETECTED 01/13/23 14:35 Nasal B.pertussis DNA PCR NOT DETECTED 01/13/23 14:35 Nasal C.pneumoniae (PCR) NOT DETECTED 01/13/23 14:35 Jamin Human Metapneumo PCR NOT DETECTED 01/13/23 14:35 Nasal M.pneumoniae (PCR) NOT DETECTED 01/13/23 14:35 Nasal SARS-CoV-2 (PCR) NOT DETECTED 01/13/23 14:35 Sepsis Event Note (H) - Evaluation Current Stage of Sepsis: Ruled out Current Medications - Current Medications Current Medications: Active Medications Generic Name Dose Route Start Last Admin Trade Name Freq PRN Reason Stop Dose Admin Acetaminophen 650 mg 01/13/23 15:52 Acetaminophen 325 Mg Tablet PO Q4HR PRN Pain 1 to 4, or Fever Apixaban 5 mg 01/13/23 21:00 01/16/23 08:28 Apixaban 5 Mg Tablet PO 5 mg BID JUNITO Administration Diltiazem HCl 90 mg 01/14/23 13:00 01/16/23 13:27 Diltiazem 30 Mg Tablet PO 90 mg QID JUNITO Administration Diphenhydramine HCl 25 mg 01/15/23 14:27 01/15/23 14:33 Diphenhydramine 25 Mg Capsule PO 25 mg Q4HR PRN Administration Allergy Symptoms Furosemide 20 mg 01/14/23 14:00 01/16/23 13:27 Furosemide 20 Mg/2 Ml Vial IVP 20 mg BIDDIURETIC JUNITO Administration Ceftriaxone Sodium 1 gm/ 100 mls @ 200 mls/hr 01/14/23 14:00 01/16/23 13:59 Sodium Chloride IV Infused Q24H JUNITO Infusion Lorazepam 1 mg 01/13/23 18:12 01/15/23 00:20 Lorazepam 2 Mg/Ml Vial IVP 1 mg Q30M PRN Administration CIWA >8 Protocol Mineral Oil 1 applic 01/14/23 21:33 01/15/23 16:20 Min Oil/Dimethicon/Coconut Oil 92 Gm Tube TOP 1 applic PRN PRN Administration Skin Care Ondansetron HCl 4 mg 01/13/23 15:52 Ondansetron 4 Mg/2 Ml Vial IVP Q6HR PRN Nausea / Vomiting Multivit/Folic Acid/Iron 1 tab 01/14/23 09:00 01/16/23 08:28 Vitamin Tablet PO 1 tab DAILY JUNITO Administration Sodium Chloride 10 ml 01/13/23 15:52 01/16/23 06:19 Sodium Chloride Flush 0.9% 10 Ml Syringe IVP 10 ml PRN PRN Administration NEEDED PER PROVIDER ORDERS Sodium Chloride 10 ml 01/13/23 17:00 01/16/23 08:29 Sodium Chloride Flush 0.9% 10 Ml Syringe IVP 10 ml 0100,0900,1700 JUNITO Administration Thiamine HCl 100 mg 01/14/23 09:00 01/16/23 08:28 Thiamine 100 Mg Tablet PO 100 mg DAILY JUNITO Administration Zinc Oxide 113 gm 01/14/23 13:56 01/16/23 14:50 Cod Liver Oil/Zinc Oxide 113 Gm Tube TOP 1 applic PRN PRN Administration Skin Care Apixaban [Eliquis] 5 mg PO BID 01/13/23 Testosterone Cypionate 0.75 ml IM UD 01/14/23
[2023-01-17] MEDS: SODIUM CHLORIDE FLUSH 0.9% 10 ML SYRINGE IVP SCH ×3 (00:16→16:28)
[2023-01-17] MEDS: FUROSEMIDE 20 MG/2 ML VIAL IVP SCH (05:41)
[2023-01-17 05:54] LABS: BASOPHILS # (AUTO) 0.1 10^3/uL (0.0-0.1); BASOPHILS % (AUTO) 0.4 %; EOSINOPHILS # (AUTO) 0.1 10^3/uL (0.0-0.7); HCT - HEMATOCRIT 43.3 % (42.0-52.0); HGB - HEMOGLOBIN 15.1 g/dL (14.0-18.0); LYMPHOCYTES # (AUTO) 0.8 10^3/uL (1.5-3.5); LYMPHOCYTES % (AUTO) 6.6 %; MEAN CORPUSCULAR HEMOGLOBIN 34.4 pg (27.0-31.0); MEAN CORPUSCULAR HGB CONC 34.9 g/dL (32.0-36.0); MEAN CORPUSCULAR VOLUME 98.6 fL (80.0-94.0); MEAN PLATELET VOLUME 10.7 fL (7.4-11.4); MONOCYTES % (AUTO) 8.4 %; NEUTROPHILS # (AUTO) 9.5 10^3/uL (1.5-6.6); NEUTROPHILS % (AUTO) 83.1 %; PLT - PLATELET COUNT 222 10^3/uL (130-450); RED BLOOD COUNT 4.39 10^6/uL (4.70-6.10); RED CELL DISTRIBUTION WIDTH 12.4 % (12.0-15.0); WHITE BLOOD COUNT 11.4 x10^3/uL (4.8-10.8)
[2023-01-17 06:14] LABS: CALCIUM 8.2 mg/dL (8.5-10.3); CREATININE 1.1 mg/dL (0.6-1.3); POTASSIUM 3.3 mmol/L (3.5-4.5)
[2023-01-17] MEDS: PRENATAL VITAMIN TABLET PO SCH (07:59)
[2023-01-17] MEDS: APIXABAN 5 MG TABLET PO SCH ×2 (07:59→21:06)
[2023-01-17] MEDS: THIAMINE 100 MG TABLET PO SCH (07:59)
[2023-01-17] MEDS: diltiaZEM 30 MG TABLET PO SCH (07:59)
[2023-01-17] MEDS: POTASSIUM CHLORIDE 20 MEQ TABLET PO SCH ×2 (09:35→21:06)
[2023-01-17] MEDS ORDERED: polyethylene glycoL 3350 17 GM PACKET PO SCH (11:00)
[2023-01-17] MEDS: COD LIVER OIL/ZINC OXIDE 113 GM TUBE TOP PRN (11:58)
[2023-01-17] MEDS ORDERED: diltiaZEM CD 180 MG CAPSULE PO SCH (12:00)
--- NOTE | 2023-01-17 13:35 | PROVIDER PROGRESS NOTE ---
Assessment/Plan - Problem List (1) Acute respiratory failure with hypoxia Assessment/Plan: Assessment/Plan: Underwent thoracentesis on 01/16 with removal of 1.6 L of pleural fluid. Weaned off of oxygen. Culture thus far negative. Pathology pending. (2) Alcohol withdrawal Assessment/Plan: --Discontinue Librium per family request. I do not think he is withdrawing. He has a prior history of drinking 2x glasses of wine daily. Continue thaimine and multivitamin supplements. (3) Altered mental status Qualifiers: Altered mental status type: disorientation Qualified Code(s): R41.0 - Disorientation, unspecified Assessment/Plan: -- Encephalopathy is much improved today after using CPAP overnight. -- I did recommend outpatient follow-up with a neurologist given that his condition and mental status has been declining for several years. -- Family do not want an MRI of his brain performed while inpatient. (4) Atrial fibrillation with RVR Assessment/Plan: --Continue diltiazem. Heart rate well controlled. --Anticoagulated with Eliquis. (5) Hyponatremia Assessment/Plan: --Sodium is stable. (6) Melanoma Qualifiers: Melanoma location: neck Qualified Code(s): C43.4 - Malignant melanoma of scalp and neck Assessment/Plan: --Remote history of a melanoma excision on his posterior neck. An MRI of his abdomen and lung was performed during this admission. MRI of the abdomen shows a 4.8 cm mass which is worrisome. This will eventually need to be biopsied. There is also evidence of nodules on his lung MRI. Family would like to get this taken care of in [place]. However there will be several social challenges. (7) Pleural effusion Assessment/Plan: --Culture and pathology pending. 1.6L was taken off via thoracentesis on 01/14. (8) Pneumonia Qualifiers: Pneumonia type: due to unspecified organism Laterality: left Lung location: lower lobe of lung Qualified Code(s): J18.9 - Pneumonia, unspecified organism Assessment/Plan: --Continue IV ceftriaxone and azithromycin. He is on minimal oxygen he can likely be weaned over the next 24 hours. His pleural effusion culture is negative. (9) Weakness Assessment/Plan: --Case was discussed with PT/OT. They are preliminarily recommending postacute given his general decline in cognition as well as profound weakness. He is also having a left-sided foot drop. --High risk for falls. --We are working on a safe discharge plan with social work. (3) Altered mental status Qualifiers: Altered mental status type: disorientation Qualified Code(s): R41.0 - Disorientation, unspecified (6) Melanoma Qualifiers: Melanoma location: neck Qualified Code(s): C43.4 - Malignant melanoma of scalp and neck (8) Pneumonia Qualifiers: Pneumonia type: due to unspecified organism Laterality: left Lung location: lower lobe of lung Qualified Code(s): J18.9 - Pneumonia, unspecified organism - Current Meds Current Meds: Current Medications Generic Name Dose Route Start Last Admin Trade Name Freq PRN Reason Stop Dose Admin Apixaban 5 mg 01/13/23 21:00 01/17/23 07:59 Apixaban 5 Mg Tablet PO 5 mg BID JUNTIO Administration Diphenhydramine HCl 25 mg 01/15/23 14:27 01/15/23 14:33 Diphenhydramine 25 Mg Capsule PO 25 mg Q4HR PRN Administration Allergy Symptoms Ceftriaxone Sodium 1 gm/ 100 mls @ 200 mls/hr 01/14/23 14:00 01/16/23 13:59 Sodium Chloride IV Infused Q24H JUNITO Infusion Lorazepam 1 mg 01/13/23 18:12 01/15/23 00:20 Lorazepam 2 Mg/Ml Vial IVP 1 mg Q30M PRN Administration CIWA >8 Protocol Mineral Oil 1 applic 01/14/23 21:33 01/15/23 16:20 Min Oil/Dimethicon/Coconut Oil 92 Gm Tube TOP 1 applic PRN PRN Administration Skin Care Potassium Chloride 40 meq 01/17/23 09:00 01/17/23 09:35 Potassium Chloride 20 Meq Tablet PO 01/18/23 09:01 40 meq BID JUNITO Administration Multivit/Folic Acid/Iron 1 tab 01/14/23 09:00 01/17/23 07:59 Vitamin Tablet PO 1 tab DAILY JUNITO Administration Sodium Chloride 10 ml 01/13/23 15:52 01/16/23 06:19 Sodium Chloride Flush 0.9% 10 Ml Syringe IVP 10 ml PRN PRN Administration NEEDED PER PROVIDER ORDERS Sodium Chloride 10 ml 01/13/23 17:00 01/17/23 07:59 Sodium Chloride Flush 0.9% 10 Ml Syringe IVP 10 ml 0100,0900,1700 JUNITO Administration Thiamine HCl 100 mg 01/14/23 09:00 01/17/23 07:59 Thiamine 100 Mg Tablet PO 100 mg DAILY JUNITO Administration Zinc Oxide 113 gm 01/14/23 13:56 01/17/23 11:58 Cod Liver Oil/Zinc Oxide 113 Gm Tube TOP 1 applic PRN PRN Administration Skin Care - Lab Result Fish Bone Diagrams: 01/17/23 05:37 01/17/23 05:37 - Additional Planning My Orders: My Active Orders 01/17/23 09:00 Potassium Chloride [K-Dur] 40 meq PO BID 01/17/23 Lunch Regular Diet [DIET] 01/17/23 14:00 Furosemide [Lasix] 40 mg PO DAILY 01/17/23 15:00 diltiaZEM CD [Cardizem Cd] 360 mg PO DAILY 01/18/23 14:00 polyethylene glycoL 3350 [Miralax] 17 gm PO DAILY Subjective - Subjective Patient Reports: Feeling Better, Resting Comfortably, No Complaints (Mentation has improved. Respiratory status is stable. Had a conversation with Dr. Deng regarding his discharge plan.) Objective Vital Signs: Vital Signs - 24 hr 01/16/23 01/16/23 01/16/23 16:55 17:51 21:00 Temperature 37.0 C 36.6 C Heart Rate Heart Rate [ 88 88 Brachial] Respiratory 18 20 Rate Blood Pressure 130/59 L Blood Pressure 134/63 H 132/62 H [Brachial artery] Blood Pressure [Right Brachial artery] O2 Saturation 92 92 01/16/23 01/16/23 01/16/23 21:17 23:30 23:32 Temperature 36.5 C Heart Rate 81 Heart Rate [ 81 Brachial] Respiratory 20 Rate Blood Pressure 132/62 H Blood Pressure [Brachial artery] Blood Pressure 125/62 [Right Brachial artery] O2 Saturation 88 L 01/16/23 01/17/23 01/17/23 23:35 00:17 03:05 Temperature Heart Rate 78 Heart Rate [ Brachial] Respiratory Rate Blood Pressure Blood Pressure [Brachial artery] Blood Pressure [Right Brachial artery] O2 Saturation 90 L 92 01/17/23 01/17/23 01/17/23 05:09 07:59 09:00 Temperature 36.9 C 36.8 C Heart Rate Heart Rate [ 90 90 Brachial] Respiratory 20 20 Rate Blood Pressure 131/65 H Blood Pressure [Brachial artery] Blood Pressure 145/70 H 131/65 H [Right Brachial artery] O2 Saturation 92 92 01/17/23 13:00 Temperature 46.5 C H Heart Rate Heart Rate [ 94 Brachial] Respiratory 20 Rate Blood Pressure Blood Pressure [Brachial artery] Blood Pressure 127/68 [Right Brachial artery] O2 Saturation 94 Oxygen O2 Source Room air Oxygen Flow Rate 2 I&O (Last 24 Hrs): Intake and Output Totals x24h 01/15/23 01/16/23 01/17/23 23:59 23:59 23:59 Intake Total 1295.834 440 280 Output Total 1825 1750 375 Balance -529.166 -1310 -95 General: Alert, Oriented x3, Cooperative, No acute distress Neuro: Alert, CN 2-12 Grossly Intact, Oriented Times 3 Cardiovascular: Regular rate, Normal S1, Normal S2, No murmurs Respiratory: Chest non-tender, No respiratory distress, Breath sounds nml Abdomen: Normal bowel sounds, Soft, No tenderness, No hepatospenomegaly, No masses - Results Results: Laboratory Results WBC 11.4 x10^3/uL (4.8-10.8) H 01/17/23 05:37 RBC 4.39 10^6/uL (4.70-6.10) L 01/17/23 05:37 Hgb 15.1 g/dL (14.0-18.0) 01/17/23 05:37 Hct 43.3 % (42.0-52.0) 01/17/23 05:37 MCV 98.6 fL (80.0-94.0) H 01/17/23 05:37 MCH 34.4 pg (27.0-31.0) H 01/17/23 05:37 MCHC 34.9 g/dL (32.0-36.0) 01/17/23 05:37 RDW 12.4 % (12.0-15.0) 01/17/23 05:37 Plt Count 222 10^3/uL (130-450) 01/17/23 05:37 MPV 10.7 fL (7.4-11.4) 01/17/23 05:37 Neut # (Auto) 9.5 10^3/uL (1.5-6.6) H 01/17/23 05:37 Lymph # (Auto) 0.8 10^3/uL (1.5-3.5) L 01/17/23 05:37 Rock # (Auto) 1.0 10^3/uL (0.0-1.0) 01/17/23 05:37 Eos # (Auto) 0.1 10^3/uL (0.0-0.7) 01/17/23 05:37 Baso # (Auto) 0.1 10^3/uL (0.0-0.1) 01/17/23 05:37 Absolute Nucleated RBC 0.00 x10^3/uL 01/17/23 05:37 Nucleated RBC % 0.0 /100WBC 01/17/23 05:37 PT 14.4 secs (9.9-12.6) H 01/14/23 04:30 INR 1.4 (0.8-1.2) H 01/14/23 04:30 Bld Gas Analysis Time 1848 01/13/23 18:40 Sample Site RIGHT RADIAL 01/13/23 18:40 ABG pH 7.46 (7.35-7.45) H 01/13/23 18:40 ABG pCO2 29 mmHg (34-45) L 01/13/23 18:40 ABG pO2 77 mmHg (80-100) L 01/13/23 18:40 ABG HCO3 20.2 mmol/L (22.0-26.0) L 01/13/23 18:40 ABG Total CO2 21.1 MMOL/L (21.0-29.0) 01/13/23 18:40 ABG O2 Saturation 96 % (94-98) 01/13/23 18:40 ABG Base Excess -2.1 mmol/L (-2.0-3.0) L 01/13/23 18:40 Donald Test POSITIVE 01/13/23 18:40 O2 Delivery Device NASAL CANNULA 01/13/23 18:40 O2 Liters/Min 2.00 LPM 01/13/23 18:40 Sodium 129 mmol/L (135-145) L 01/17/23 05:37 Potassium 3.3 mmol/L (3.5-4.5) L 01/17/23 05:37 Chloride 95 mmol/L (101-111) L 01/17/23 05:37 Carbon Dioxide 25 mmol/L (21-32) 01/17/23 05:37 Anion Gap 9.0 (6-13) 01/17/23 05:37 BUN 15 mg/dL (6-20) 01/17/23 05:37 Creatinine 1.1 mg/dL (0.6-1.3) 01/17/23 05:37 Estimated GFR (MDRD) 64 (>89) L 01/17/23 05:37 Glucose 112 mg/dL (74-104) H 01/17/23 05:37 Calcium 8.2 mg/dL (8.5-10.3) L 01/17/23 05:37 Total Bilirubin 0.8 mg/dL (0.2-1.0) 01/14/23 04:30 Direct Bilirubin 0.16 mg/dL (0.03-0.18) 01/14/23 04:30 AST 32 IU/L (10-42) 01/14/23 04:30 ALT 20 IU/L (10-60) 01/14/23 04:30 Alkaline Phosphatase 78 IU/L (42-121) 01/14/23 04:30 Troponin I High Sens 21.8 ng/L (2.3-19.7) H* 01/13/23 16:26 B-Natriuretic Peptide 59 pg/mL (5-100) 01/13/23 13:21 Total Protein 6.4 g/dL (6.4-8.9) 01/14/23 04:30 Albumin 3.4 g/dL (3.2-5.5) 01/14/23 04:30 Globulin 3.0 g/dL (2.1-4.2) 01/14/23 04:30 Albumin/Globulin Ratio 1.2 (1.0-2.2) 01/13/23 18:20 Lipase 33 U/L (11-82) 01/13/23 13:21 TSH 4.55 uIU/mL (0.34-5.60) 01/13/23 13:21 Free T4 Direct 0.87 ng/dL (0.58-1.64) 01/13/23 13:21 Fluid Source PLEURAL 01/14/23 09:45 Fluid Color PINK 01/14/23 09:45 Fluid Clarity HAZY 01/14/23 09:45 Fluid WBC 459 /mm^3 01/14/23 09:45 Fluid RBC 79908 /mm^3 01/14/23 09:45 Fluid Neutrophils % 15.0 % 01/14/23 09:45 Fluid Lymphocytes % 76.0 % 01/14/23 09:45 Fluid Monocytes % 1.0 % 01/14/23 09:45 Fluid Eosinophils % 2.0 % 01/14/23 09:45 Fluid Macrophages % 3.0 % 01/14/23 09:45 Fld Mesothelial Cell % 3.0 % 01/14/23 09:45 Fluid Glucose 88 mg/dL (.) 01/14/23 09:45 Fluid Total Protein 3.8 g/dL (.) 01/14/23 09:45 Fluid LDH 133 IU/L (.) 01/14/23 09:45 Nasal Adenovirus (PCR) NOT DETECTED 01/13/23 14:35 Nasal B. parapertussis DNA (PCR) NOT DETECTED 01/13/23 14:35 Nasal Coronavir 229E PCR NOT DETECTED 01/13/23 14:35 Nasal Coronavir HKU1 PCR NOT DETECTED 01/13/23 14:35 Nasal Coronavir NL63 PCR NOT DETECTED 01/13/23 14:35 Nasal Coronavir OC43 PCR NOT DETECTED 01/13/23 14:35 Nasal Enterovir/Rhinovir PCR NOT DETECTED 01/13/23 14:35 Nasal Influenza B PCR NOT DETECTED 01/13/23 14:35 Nasal Influenza A PCR NOT DETECTED 01/13/23 14:35 Nasal Parainfluen 1 PCR NOT DETECTED 01/13/23 14:35 Nasal Parainfluen 2 PCR NOT DETECTED 01/13/23 14:35 Nasal Parainfluen 3 PCR NOT DETECTED 01/13/23 14:35 Nasal Parainfluen 4 PCR NOT DETECTED 01/13/23 14:35 Nasal RSV (PCR) NOT DETECTED 01/13/23 14:35 Nasal B.pertussis DNA PCR NOT DETECTED 01/13/23 14:35 Nasal C.pneumoniae (PCR) NOT DETECTED 01/13/23 14:35 Jamni Human Metapneumo PCR NOT DETECTED 01/13/23 14:35 Nasal M.pneumoniae (PCR) NOT DETECTED 01/13/23 14:35 Nasal SARS-CoV-2 (PCR) NOT DETECTED 01/13/23 14:35 Sepsis Event Note (H) - Evaluation Current Stage of Sepsis: Ruled out Current Medications - Current Medications Current Medications: Active Medications Generic Name Dose Route Start Last Admin Trade Name Freq PRN Reason Stop Dose Admin Acetaminophen 650 mg 01/13/23 15:52 Acetaminophen 325 Mg Tablet PO Q4HR PRN Pain 1 to 4, or Fever Apixaban 5 mg 01/13/23 21:00 01/17/23 07:59 Apixaban 5 Mg Tablet PO 5 mg BID JUNITO Administration Diltiazem HCl 360 mg 01/17/23 15:00 Diltiazem Cd 180 Mg Capsule PO DAILY JUNITO Diphenhydramine HCl 25 mg 01/15/23 14:27 01/15/23 14:33 Diphenhydramine 25 Mg Capsule PO 25 mg Q4HR PRN Administration Allergy Symptoms Furosemide 40 mg 01/17/23 14:00 Furosemide 40 Mg Tablet PO DAILY JUNITO Ceftriaxone Sodium 1 gm/ 100 mls @ 200 mls/hr 01/14/23 14:00 01/16/23 13:59 Sodium Chloride IV Infused Q24H JUNITO Infusion Lorazepam 1 mg 01/13/23 18:12 01/15/23 00:20 Lorazepam 2 Mg/Ml Vial IVP 1 mg Q30M PRN Administration CIWA >8 Protocol Mineral Oil 1 applic 01/14/23 21:33 01/15/23 16:20 Min Oil/Dimethicon/Coconut Oil 92 Gm Tube TOP 1 applic PRN PRN Administration Skin Care Ondansetron HCl 4 mg 01/13/23 15:52 Ondansetron 4 Mg/2 Ml Vial IVP Q6HR PRN Nausea / Vomiting Polyethylene Glycol 17 gm 01/18/23 14:00 Polyethylene Glycol 3350 17 Gm Packet PO DAILY JUNITO Potassium Chloride 40 meq 01/17/23 09:00 01/17/23 09:35 Potassium Chloride 20 Meq Tablet PO 01/18/23 09:01 40 meq BID JUNITO Administration Multivit/Folic Acid/Iron 1 tab 01/14/23 09:00 01/17/23 07:59 Vitamin Tablet PO 1 tab DAILY JUNITO Administration Sodium Chloride 10 ml 01/13/23 15:52 01/16/23 06:19 Sodium Chloride Flush 0.9% 10 Ml Syringe IVP 10 ml PRN PRN Administration NEEDED PER PROVIDER ORDERS Sodium Chloride 10 ml 01/13/23 17:00 01/17/23 07:59 Sodium Chloride Flush 0.9% 10 Ml Syringe IVP 10 ml 0100,0900,1700 JUNITO Administration Thiamine HCl 100 mg 01/14/23 09:00 01/17/23 07:59 Thiamine 100 Mg Tablet PO 100 mg DAILY JUNITO Administration Zinc Oxide 113 gm 01/14/23 13:56 01/17/23 11:58 Cod Liver Oil/Zinc Oxide 113 Gm Tube TOP 1 applic PRN PRN Administration Skin Care Apixaban [Eliquis] 5 mg PO BID 01/13/23 Testosterone Cypionate 0.75 ml IM UD 01/14/23
[2023-01-17] MEDS: diltiaZEM CD 180 MG CAPSULE PO SCH (14:06)
[2023-01-17] MEDS: cefTRIAXone 1 GM in SODIUM CHLORIDE 0.9% MINIBAG 100 ML IV SCH (14:06)
[2023-01-17] MEDS: FUROSEMIDE 40 MG TABLET PO SCH (14:06)
[2023-01-17] MEDS: MIN OIL/DIMETHICON/COCONUT OIL 92 GM TUBE TOP PRN (16:28)
[2023-01-18] MEDS: SODIUM CHLORIDE FLUSH 0.9% 10 ML SYRINGE IVP SCH ×3 (00:18→16:47)
[2023-01-18] MEDS: FUROSEMIDE 40 MG TABLET PO SCH (08:01)
[2023-01-18] MEDS: diltiaZEM CD 180 MG CAPSULE PO SCH (08:01)
[2023-01-18] MEDS: THIAMINE 100 MG TABLET PO SCH (08:01)
[2023-01-18] MEDS: PRENATAL VITAMIN TABLET PO SCH (08:01)
[2023-01-18] MEDS: POTASSIUM CHLORIDE 20 MEQ TABLET PO SCH (08:01)
[2023-01-18] MEDS: APIXABAN 5 MG TABLET PO SCH ×2 (08:01→20:10)
[2023-01-18] MEDS ORDERED: POTASSIUM CHLORIDE 20 MEQ TABLET PO ONE (11:00)
--- NOTE | 2023-01-18 12:40 | PROVIDER PROGRESS NOTE ---
Assessment/Plan - Problem List (1) Acute respiratory failure with hypoxia Assessment/Plan: (1) Acute respiratory failure with hypoxia Assessment/Plan: Assessment/Plan: Underwent thoracentesis on 01/16 with removal of 1.6 L of pleural fluid. Weaned off of oxygen. Culture negative. Pathology pending. (2) Alcohol withdrawal Assessment/Plan: --Discontinue Librium per family request. I do not think he is withdrawing. He has a prior history of drinking 2x glasses of wine daily. Continue thaimine and multivitamin supplements. (3) Altered mental status Qualifiers: Altered mental status type: disorientation Qualified Code(s): R41.0 - Disorientation, unspecified Assessment/Plan: -- Encephalopathy is much improved today after using CPAP nightly. -- I did recommend outpatient follow-up with a neurologist given that his condition and mental status has been declining for several years. -- Family do not want an MRI of his brain performed while inpatient. --He likely suffers from underlying dementia which has been progressing. --SNF would like to see improvement in his mentation prior to acceptance. I feel he is likely as close to baseline as he will get. (4) Atrial fibrillation with RVR Assessment/Plan: --Continue diltiazem. Heart rate well controlled. --Anticoagulated with Eliquis. (5) Hyponatremia Assessment/Plan: --Sodium is stable. (6) Melanoma Qualifiers: Melanoma location: neck Qualified Code(s): C43.4 - Malignant melanoma of scalp and neck Assessment/Plan: --Remote history of a melanoma excision on his posterior neck. An MRI of his abdomen and lung was performed during this admission. MRI of the abdomen shows a 4.8 cm mass which is worrisome. This will eventually need to be biopsied. There is also evidence of nodules on his lung MRI. Family would like to get this taken care of in [place]. However there will be several social challenges. (7) Pleural effusion Assessment/Plan: --Culture and pathology pending. 1.6L was taken off via thoracentesis on 01/14. (8) Pneumonia Qualifiers: Pneumonia type: due to unspecified organism Laterality: left Lung location: lower lobe of lung Qualified Code(s): J18.9 - Pneumonia, unspecified organism Assessment/Plan: --Continue IV ceftriaxone and azithromycin. He is on minimal oxygen he can likely be weaned over the next 24 hours. His pleural effusion culture is negative. (9) Weakness Assessment/Plan: --Case was discussed with PT/OT. They are preliminarily recommending postacute given his general decline in cognition as well as profound weakness. He is also having a left-sided foot drop. --High risk for falls. --We are working on a safe discharge plan with social work. (3) Altered mental status Qualifiers: Altered mental status type: disorientation Qualified Code(s): R41.0 - Disorientation, unspecified (6) Melanoma Qualifiers: Melanoma location: neck Qualified Code(s): C43.4 - Malignant melanoma of scalp and neck (8) Pneumonia Qualifiers: Pneumonia type: due to unspecified organism Laterality: left Lung location: lower lobe of lung Qualified Code(s): J18.9 - Pneumonia, unspecified organism - Current Meds Current Meds: Current Medications Generic Name Dose Route Start Last Admin Trade Name Freq PRN Reason Stop Dose Admin Apixaban 5 mg 01/13/23 21:00 01/18/23 08:01 Apixaban 5 Mg Tablet PO 5 mg BID JUNITO Administration Diltiazem HCl 360 mg 01/17/23 15:00 01/18/23 08:01 Diltiazem Cd 180 Mg Capsule PO 360 mg DAILY JUNITO Administration Diphenhydramine HCl 25 mg 01/15/23 14:27 01/15/23 14:33 Diphenhydramine 25 Mg Capsule PO 25 mg Q4HR PRN Administration Allergy Symptoms Furosemide 40 mg 01/17/23 14:00 01/18/23 08:01 Furosemide 40 Mg Tablet PO 40 mg DAILY JUNITO Administration Ceftriaxone Sodium 1 gm/ 100 mls @ 200 mls/hr 01/14/23 14:00 01/17/23 14:37 Sodium Chloride IV Infused Q24H JUNITO Infusion Lorazepam 1 mg 01/13/23 18:12 01/15/23 00:20 Lorazepam 2 Mg/Ml Vial IVP 1 mg Q30M PRN Administration CIWA >8 Protocol Mineral Oil 1 applic 01/14/23 21:33 01/17/23 16:28 Min Oil/Dimethicon/Coconut Oil 92 Gm Tube TOP 1 applic PRN PRN Administration Skin Care Multivit/Folic Acid/Iron 1 tab 01/14/23 09:00 01/18/23 08:01 Vitamin Tablet PO 1 tab DAILY JUNITO Administration Sodium Chloride 10 ml 01/13/23 15:52 01/16/23 06:19 Sodium Chloride Flush 0.9% 10 Ml Syringe IVP 10 ml PRN PRN Administration NEEDED PER PROVIDER ORDERS Sodium Chloride 10 ml 01/13/23 17:00 01/18/23 08:01 Sodium Chloride Flush 0.9% 10 Ml Syringe IVP 10 ml 0100,0900,1700 JUNITO Administration Thiamine HCl 100 mg 01/14/23 09:00 01/18/23 08:01 Thiamine 100 Mg Tablet PO 100 mg DAILY JUNITO Administration Zinc Oxide 113 gm 01/14/23 13:56 01/17/23 11:58 Cod Liver Oil/Zinc Oxide 113 Gm Tube TOP 1 applic PRN PRN Administration Skin Care - Lab Result Fish Bone Diagrams: 01/17/23 05:37 01/17/23 05:37 - Additional Planning Condition/Complexity: Stable My Orders: My Active Orders 01/17/23 14:00 Furosemide [Lasix] 40 mg PO DAILY 01/17/23 15:00 diltiaZEM CD [Cardizem Cd] 360 mg PO DAILY 01/18/23 14:00 polyethylene glycoL 3350 [Miralax] 17 gm PO DAILY Plan Discussed with:: Patient, Family Subjective - Subjective Patient Reports: Resting Comfortably, No Complaints Nursing Reports: No Complaints Objective Vital Signs: Vital Signs - 24 hr 01/17/23 01/17/23 01/17/23 13:00 16:16 21:04 Temperature 36.5 C 37.2 C 37.4 C Heart Rate Heart Rate [ 94 95 94 Brachial] Respiratory 20 18 18 Rate Blood Pressure 127/68 127/65 120/58 L [Right Brachial artery] O2 Saturation 94 93 92 If not protocol : Oxygen Flow, liters/minute 01/17/23 01/17/23 01/18/23 21:30 23:56 00:05 Temperature 36.8 C Heart Rate 94 Heart Rate [ 85 Brachial] Respiratory 20 Rate Blood Pressure 145/71 H [Right Brachial artery] O2 Saturation 90 L 95 If not protocol : Oxygen Flow, liters/minute 01/18/23 01/18/23 05:16 07:51 Temperature 37.0 C 36.8 C Heart Rate Heart Rate [ 89 77 Brachial] Respiratory 20 20 Rate Blood Pressure 126/65 140/63 H [Right Brachial artery] O2 Saturation 93 92 If not protocol 3 : Oxygen Flow, liters/minute Oxygen O2 Source Room air Oxygen Flow Rate 2 I&O (Last 24 Hrs): Intake and Output Totals x24h 01/16/23 01/17/23 01/18/23 23:59 23:59 23:59 Intake Total 440 500 120 Output Total 1750 1575 100 Balance -1310 -1075 20 General: Alert, Cooperative, No acute distress HEENT: Atraumatic, PERRLA, EOMI Neuro: Alert, CN 2-12 Grossly Intact Cardiovascular: Regular rate, Normal S1, Normal S2 Respiratory: Chest non-tender, No respiratory distress, Breath sounds nml Abdomen: Normal bowel sounds, Soft, No tenderness Extremities: No clubbing, No cyanosis, No edema, Normal pulses, No tenderness/swelling - Results Results: Laboratory Results WBC 11.4 x10^3/uL (4.8-10.8) H 01/17/23 05:37 RBC 4.39 10^6/uL (4.70-6.10) L 01/17/23 05:37 Hgb 15.1 g/dL (14.0-18.0) 01/17/23 05:37 Hct 43.3 % (42.0-52.0) 01/17/23 05:37 MCV 98.6 fL (80.0-94.0) H 01/17/23 05:37 MCH 34.4 pg (27.0-31.0) H 01/17/23 05:37 MCHC 34.9 g/dL (32.0-36.0) 01/17/23 05:37 RDW 12.4 % (12.0-15.0) 01/17/23 05:37 Plt Count 222 10^3/uL (130-450) 01/17/23 05:37 MPV 10.7 fL (7.4-11.4) 01/17/23 05:37 Neut # (Auto) 9.5 10^3/uL (1.5-6.6) H 01/17/23 05:37 Lymph # (Auto) 0.8 10^3/uL (1.5-3.5) L 01/17/23 05:37 Love # (Auto) 1.0 10^3/uL (0.0-1.0) 01/17/23 05:37 Eos # (Auto) 0.1 10^3/uL (0.0-0.7) 01/17/23 05:37 Baso # (Auto) 0.1 10^3/uL (0.0-0.1) 01/17/23 05:37 Absolute Nucleated RBC 0.00 x10^3/uL 01/17/23 05:37 Nucleated RBC % 0.0 /100WBC 01/17/23 05:37 PT 14.4 secs (9.9-12.6) H 01/14/23 04:30 INR 1.4 (0.8-1.2) H 01/14/23 04:30 Bld Gas Analysis Time 1848 01/13/23 18:40 Sample Site RIGHT RADIAL 01/13/23 18:40 ABG pH 7.46 (7.35-7.45) H 01/13/23 18:40 ABG pCO2 29 mmHg (34-45) L 01/13/23 18:40 ABG pO2 77 mmHg (80-100) L 01/13/23 18:40 ABG HCO3 20.2 mmol/L (22.0-26.0) L 01/13/23 18:40 ABG Total CO2 21.1 MMOL/L (21.0-29.0) 01/13/23 18:40 ABG O2 Saturation 96 % (94-98) 01/13/23 18:40 ABG Base Excess -2.1 mmol/L (-2.0-3.0) L 01/13/23 18:40 Donald Test POSITIVE 01/13/23 18:40 O2 Delivery Device NASAL CANNULA 01/13/23 18:40 O2 Liters/Min 2.00 LPM 01/13/23 18:40 Sodium 129 mmol/L (135-145) L 01/17/23 05:37 Potassium 3.3 mmol/L (3.5-4.5) L 01/17/23 05:37 Chloride 95 mmol/L (101-111) L 01/17/23 05:37 Carbon Dioxide 25 mmol/L (21-32) 01/17/23 05:37 Anion Gap 9.0 (6-13) 01/17/23 05:37 BUN 15 mg/dL (6-20) 01/17/23 05:37 Creatinine 1.1 mg/dL (0.6-1.3) 01/17/23 05:37 Estimated GFR (MDRD) 64 (>89) L 01/17/23 05:37 Glucose 112 mg/dL (74-104) H 01/17/23 05:37 Calcium 8.2 mg/dL (8.5-10.3) L 01/17/23 05:37 Total Bilirubin 0.8 mg/dL (0.2-1.0) 01/14/23 04:30 Direct Bilirubin 0.16 mg/dL (0.03-0.18) 01/14/23 04:30 AST 32 IU/L (10-42) 01/14/23 04:30 ALT 20 IU/L (10-60) 01/14/23 04:30 Alkaline Phosphatase 78 IU/L (42-121) 01/14/23 04:30 Troponin I High Sens 21.8 ng/L (2.3-19.7) H* 01/13/23 16:26 B-Natriuretic Peptide 59 pg/mL (5-100) 01/13/23 13:21 Total Protein 6.4 g/dL (6.4-8.9) 01/14/23 04:30 Albumin 3.4 g/dL (3.2-5.5) 01/14/23 04:30 Globulin 3.0 g/dL (2.1-4.2) 01/14/23 04:30 Albumin/Globulin Ratio 1.2 (1.0-2.2) 01/13/23 18:20 Lipase 33 U/L (11-82) 01/13/23 13:21 TSH 4.55 uIU/mL (0.34-5.60) 01/13/23 13:21 Free T4 Direct 0.87 ng/dL (0.58-1.64) 01/13/23 13:21 Fluid Source PLEURAL 01/14/23 09:45 Fluid Color PINK 01/14/23 09:45 Fluid Clarity HAZY 01/14/23 09:45 Fluid WBC 459 /mm^3 01/14/23 09:45 Fluid RBC 92607 /mm^3 01/14/23 09:45 Fluid Neutrophils % 15.0 % 01/14/23 09:45 Fluid Lymphocytes % 76.0 % 01/14/23 09:45 Fluid Monocytes % 1.0 % 01/14/23 09:45 Fluid Eosinophils % 2.0 % 01/14/23 09:45 Fluid Macrophages % 3.0 % 01/14/23 09:45 Fld Mesothelial Cell % 3.0 % 01/14/23 09:45 Fluid Glucose 88 mg/dL (.) 01/14/23 09:45 Fluid Total Protein 3.8 g/dL (.) 01/14/23 09:45 Fluid LDH 133 IU/L (.) 01/14/23 09:45 Nasal Adenovirus (PCR) NOT DETECTED 01/13/23 14:35 Nasal B. parapertussis DNA (PCR) NOT DETECTED 01/13/23 14:35 Nasal Coronavir 229E PCR NOT DETECTED 01/13/23 14:35 Nasal Coronavir HKU1 PCR NOT DETECTED 01/13/23 14:35 Nasal Coronavir NL63 PCR NOT DETECTED 01/13/23 14:35 Nasal Coronavir OC43 PCR NOT DETECTED 01/13/23 14:35 Nasal Enterovir/Rhinovir PCR NOT DETECTED 01/13/23 14:35 Nasal Influenza B PCR NOT DETECTED 01/13/23 14:35 Nasal Influenza A PCR NOT DETECTED 01/13/23 14:35 Nasal Parainfluen 1 PCR NOT DETECTED 01/13/23 14:35 Nasal Parainfluen 2 PCR NOT DETECTED 01/13/23 14:35 Nasal Parainfluen 3 PCR NOT DETECTED 01/13/23 14:35 Nasal Parainfluen 4 PCR NOT DETECTED 01/13/23 14:35 Nasal RSV (PCR) NOT DETECTED 01/13/23 14:35 Nasal B.pertussis DNA PCR NOT DETECTED 01/13/23 14:35 Nasal C.pneumoniae (PCR) NOT DETECTED 01/13/23 14:35 Jamin Human Metapneumo PCR NOT DETECTED 01/13/23 14:35 Nasal M.pneumoniae (PCR) NOT DETECTED 01/13/23 14:35 Nasal SARS-CoV-2 (PCR) NOT DETECTED 01/13/23 14:35 Sepsis Event Note (H) - Evaluation Current Stage of Sepsis: Ruled out Current Medications - Current Medications Current Medications: Active Medications Generic Name Dose Route Start Last Admin Trade Name Freq PRN Reason Stop Dose Admin Acetaminophen 650 mg 01/13/23 15:52 Acetaminophen 325 Mg Tablet PO Q4HR PRN Pain 1 to 4, or Fever Apixaban 5 mg 01/13/23 21:00 01/18/23 08:01 Apixaban 5 Mg Tablet PO 5 mg BID JUNITO Administration Diltiazem HCl 360 mg 01/17/23 15:00 01/18/23 08:01 Diltiazem Cd 180 Mg Capsule PO 360 mg DAILY JUNITO Administration Diphenhydramine HCl 25 mg 01/15/23 14:27 01/15/23 14:33 Diphenhydramine 25 Mg Capsule PO 25 mg Q4HR PRN Administration Allergy Symptoms Furosemide 40 mg 01/17/23 14:00 01/18/23 08:01 Furosemide 40 Mg Tablet PO 40 mg DAILY JUNITO Administration Ceftriaxone Sodium 1 gm/ 100 mls @ 200 mls/hr 01/14/23 14:00 01/17/23 14:37 Sodium Chloride IV Infused Q24H JUNITO Infusion Lorazepam 1 mg 01/13/23 18:12 01/15/23 00:20 Lorazepam 2 Mg/Ml Vial IVP 1 mg Q30M PRN Administration CIWA >8 Protocol Mineral Oil 1 applic 01/14/23 21:33 01/17/23 16:28 Min Oil/Dimethicon/Coconut Oil 92 Gm Tube TOP 1 applic PRN PRN Administration Skin Care Ondansetron HCl 4 mg 01/13/23 15:52 Ondansetron 4 Mg/2 Ml Vial IVP Q6HR PRN Nausea / Vomiting Polyethylene Glycol 17 gm 01/18/23 14:00 Polyethylene Glycol 3350 17 Gm Packet PO DAILY [facility] Multivit/Folic Acid/Iron 1 tab 01/14/23 09:00 01/18/23 08:01 Vitamin Tablet PO 1 tab DAILY JUNITO Administration Sodium Chloride 10 ml 01/13/23 15:52 01/16/23 06:19 Sodium Chloride Flush 0.9% 10 Ml Syringe IVP 10 ml PRN PRN Administration NEEDED PER PROVIDER ORDERS Sodium Chloride 10 ml 01/13/23 17:00 01/18/23 08:01 Sodium Chloride Flush 0.9% 10 Ml Syringe IVP 10 ml 0100,0900,1700 JUNITO Administration Thiamine HCl 100 mg 01/14/23 09:00 01/18/23 08:01 Thiamine 100 Mg Tablet PO 100 mg DAILY JUNITO Administration Zinc Oxide 113 gm 01/14/23 13:56 01/17/23 11:58 Cod Liver Oil/Zinc Oxide 113 Gm Tube TOP 1 applic PRN PRN Administration Skin Care Apixaban [Eliquis] 5 mg PO BID 01/13/23 Testosterone Cypionate 0.75 ml IM UD 01/14/23
[2023-01-18] MEDS: polyethylene glycoL 3350 17 GM PACKET PO SCH (13:31)
[2023-01-18] MEDS: cefTRIAXone 1 GM in SODIUM CHLORIDE 0.9% MINIBAG 100 ML IV SCH (13:31)
[2023-01-18] MEDS ORDERED: SODIUM CHLORIDE 0.9% MINIBAG 100 ML IV ONE (13:37)
[2023-01-18] MEDS ORDERED: cefTRIAXone 1 GM VIAL ONE (13:37)
[2023-01-19] MEDS: SODIUM CHLORIDE FLUSH 0.9% 10 ML SYRINGE IVP SCH ×4 (00:16→23:53)
[2023-01-19] MEDS: diltiaZEM CD 180 MG CAPSULE PO SCH (08:28)
[2023-01-19] MEDS: APIXABAN 5 MG TABLET PO SCH ×2 (08:28→20:39)
[2023-01-19] MEDS: THIAMINE 100 MG TABLET PO SCH (08:28)
[2023-01-19] MEDS: polyethylene glycoL 3350 17 GM PACKET PO SCH (08:28)
[2023-01-19] MEDS: FUROSEMIDE 40 MG TABLET PO SCH (08:28)
[2023-01-19] MEDS: PRENATAL VITAMIN TABLET PO SCH (08:28)
[2023-01-19] MEDS: cefTRIAXone 1 GM in SODIUM CHLORIDE 0.9% MINIBAG 100 ML IV SCH (14:11)
--- NOTE | 2023-01-19 15:01 | PROVIDER PROGRESS NOTE ---
Assessment/Plan - Problem List (1) Acute respiratory failure with hypoxia Assessment/Plan: (1) Acute respiratory failure with hypoxia Assessment/Plan: Assessment/Plan: Underwent thoracentesis on 01/16 with removal of 1.6 L of pleural fluid. Weaned off of oxygen. Culture negative. Pathology pending. (2) Alcohol withdrawal Assessment/Plan: --Discontinue Librium per family request. I do not think he is withdrawing. He has a prior history of drinking 2x glasses of wine daily. Continue thaimine and multivitamin supplements. (3) Altered mental status Qualifiers: Altered mental status type: disorientation Qualified Code(s): R41.0 - Disorientation, unspecified Assessment/Plan: -- Encephalopathy is much improved after using CPAP nightly. -- I did recommend outpatient follow-up with a neurologist given that his cond ition and mental status has been declining for several years. -- Family do not want an MRI of his brain performed while inpatient to r/o CVA given his foot drop. --He likely suffers from underlying dementia which has been progressing. --SNF would like to see improvement in his mentation prior to acceptance. I feel he is likely as close to baseline as he will get. (4) Atrial fibrillation with RVR Assessment/Plan: --Continue diltiazem. Heart rate well controlled. Have removed him from telemetry. --Anticoagulated with Eliquis. (5) Hyponatremia Assessment/Plan: --Sodium is stable. (6) Melanoma Qualifiers: Melanoma location: neck Qualified Code(s): C43.4 - Malignant melanoma of scalp and neck Assessment/Plan: --Remote history of a melanoma excision on his posterior neck. An MRI of his abdomen and lung was performed during this admission. MRI of the abdomen shows a 4.8 cm mass which is worrisome. This will eventually need to be biopsied. There is also evidence of nodules on his lung MRI. Family would like to get this taken care of in [place]. However there will be several social challenges. (7) Pleural effusion Assessment/Plan: --Culture and pathology pending. 1.6L was taken off via thoracentesis on 01/14. (8) Pneumonia Qualifiers: Pneumonia type: due to unspecified organism Laterality: left Lung location: lower lobe of lung Qualified Code(s): J18.9 - Pneumonia, unspecified organism Assessment/Plan: --Continue IV ceftriaxone until 01/20. His pleural effusion culture is negative. (9) Weakness Assessment/Plan: --Case was discussed with PT/OT. They are preliminarily recommending postacute given his general decline in cognition as well as profound weakness. He is also having a left-sided foot drop. --High risk for falls. --We are working on a safe discharge plan with social work. (3) Altered mental status Qualifiers: Altered mental status type: disorientation Qualified Code(s): R41.0 - Disorientation, unspecified (6) Melanoma Qualifiers: Melanoma location: neck Qualified Code(s): C43.4 - Malignant melanoma of scalp and neck (8) Pneumonia Qualifiers: Pneumonia type: due to unspecified organism Laterality: left Lung location: lower lobe of lung Qualified Code(s): J18.9 - Pneumonia, unspecified organism - Current Meds Current Meds: Current Medications Generic Name Dose Route Start Last Admin Trade Name Freq PRN Reason Stop Dose Admin Apixaban 5 mg 01/13/23 21:00 01/19/23 08:28 Apixaban 5 Mg Tablet PO 5 mg BID JUNITO Administration Diltiazem HCl 360 mg 01/17/23 15:00 01/19/23 08:28 Diltiazem Cd 180 Mg Capsule PO 360 mg DAILY JUNITO Administration Diphenhydramine HCl 25 mg 01/15/23 14:27 01/15/23 14:33 Diphenhydramine 25 Mg Capsule PO 25 mg Q4HR PRN Administration Allergy Symptoms Furosemide 40 mg 01/17/23 14:00 01/19/23 08:28 Furosemide 40 Mg Tablet PO 40 mg DAILY JUNITO Administration Ceftriaxone Sodium 1 gm/ 100 mls @ 200 mls/hr 01/14/23 14:00 01/19/23 14:45 Sodium Chloride IV 01/20/23 15:00 Infused Q24H JUNITO Infusion Lorazepam 1 mg 01/13/23 18:12 01/15/23 00:20 Lorazepam 2 Mg/Ml Vial IVP 1 mg Q30M PRN Administration CIWA >8 Protocol Mineral Oil 1 applic 01/14/23 21:33 01/17/23 16:28 Min Oil/Dimethicon/Coconut Oil 92 Gm Tube TOP 1 applic PRN PRN Administration Skin Care Polyethylene Glycol 17 gm 01/18/23 14:00 01/19/23 08:28 Polyethylene Glycol 3350 17 Gm Packet PO Not Given DAILY JUNITO Multivit/Folic Acid/Iron 1 tab 01/14/23 09:00 01/19/23 08:28 Vitamin Tablet PO 1 tab DAILY JUNITO Administration Sodium Chloride 10 ml 01/13/23 15:52 01/16/23 06:19 Sodium Chloride Flush 0.9% 10 Ml Syringe IVP 10 ml PRN PRN Administration NEEDED PER PROVIDER ORDERS Sodium Chloride 10 ml 01/13/23 17:00 01/19/23 08:28 Sodium Chloride Flush 0.9% 10 Ml Syringe IVP 10 ml 0100,0900,1700 JUNITO Administration Thiamine HCl 100 mg 01/14/23 09:00 01/19/23 08:28 Thiamine 100 Mg Tablet PO 100 mg DAILY JUNITO Administration Zinc Oxide 113 gm 01/14/23 13:56 01/17/23 11:58 Cod Liver Oil/Zinc Oxide 113 Gm Tube TOP 1 applic PRN PRN Administration Skin Care - Lab Result Fish Bone Diagrams: 01/17/23 05:37 01/17/23 05:37 - Additional Planning My Orders: My Active Orders 01/18/23 14:00 polyethylene glycoL 3350 [Miralax] 17 gm PO DAILY 01/20/23 05:00 BMP - BASIC METABOLIC PANEL [CHEM] DAILYLAB Subjective - Subjective Patient Reports: Feeling Better (Had a better night last night. CPAP was functioning well.), Resting Comfortably, No Complaints Objective Vital Signs: Vital Signs - 24 hr 01/18/23 01/18/23 01/18/23 15:50 20:23 23:54 Temperature 36.6 C 36.7 C 36.3 C L Heart Rate [ 74 96 80 Brachial] Respiratory 19 16 17 Rate Blood Pressure 145/71 H 132/60 H 138/61 H [Right Brachial artery] O2 Saturation 93 93 90 L If not protocol 3 : Oxygen Flow, liters/minute 01/19/23 01/19/23 01/19/23 05:00 07:30 12:44 Temperature 36.8 C 36.6 C 36.8 C Heart Rate [ 91 97 92 Brachial] Respiratory 18 18 20 Rate Blood Pressure 137/70 H 151/67 H 133/63 H [Right Brachial artery] O2 Saturation 82 L 95 92 If not protocol 3 : Oxygen Flow, liters/minute Oxygen O2 Source Room air Oxygen Flow Rate 2 I&O (Last 24 Hrs): Intake and Output Totals x24h 01/17/23 01/18/23 01/19/23 23:59 23:59 23:59 Intake Total 500 460 340 Output Total 1575 550 300 Balance -1075 -90 40 General: Alert, Oriented x3, Cooperative, No acute distress Neuro: Alert, CN 2-12 Grossly Intact, Oriented Times 3 Cardiovascular: Regular rate, Normal S1, Normal S2, No murmurs Respiratory: Chest non-tender, No respiratory distress, Breath sounds nml Abdomen: Normal bowel sounds, Soft, No tenderness, No hepatospenomegaly, No masses Extremities: No clubbing, No cyanosis, No edema, Normal pulses, No tenderness/swelling - Results Results: Laboratory Results WBC 11.4 x10^3/uL (4.8-10.8) H 01/17/23 05:37 RBC 4.39 10^6/uL (4.70-6.10) L 01/17/23 05:37 Hgb 15.1 g/dL (14.0-18.0) 01/17/23 05:37 Hct 43.3 % (42.0-52.0) 01/17/23 05:37 MCV 98.6 fL (80.0-94.0) H 01/17/23 05:37 MCH 34.4 pg (27.0-31.0) H 01/17/23 05:37 MCHC 34.9 g/dL (32.0-36.0) 01/17/23 05:37 RDW 12.4 % (12.0-15.0) 01/17/23 05:37 Plt Count 222 10^3/uL (130-450) 01/17/23 05:37 MPV 10.7 fL (7.4-11.4) 01/17/23 05:37 Neut # (Auto) 9.5 10^3/uL (1.5-6.6) H 01/17/23 05:37 Lymph # (Auto) 0.8 10^3/uL (1.5-3.5) L 01/17/23 05:37 [place] # (Auto) 1.0 10^3/uL (0.0-1.0) 01/17/23 05:37 Eos # (Auto) 0.1 10^3/uL (0.0-0.7) 01/17/23 05:37 Baso # (Auto) 0.1 10^3/uL (0.0-0.1) 01/17/23 05:37 Absolute Nucleated RBC 0.00 x10^3/uL 01/17/23 05:37 Nucleated RBC % 0.0 /100WBC 01/17/23 05:37 PT 14.4 secs (9.9-12.6) H 01/14/23 04:30 INR 1.4 (0.8-1.2) H 01/14/23 04:30 Bld Gas Analysis Time 1848 01/13/23 18:40 Sample Site RIGHT RADIAL 01/13/23 18:40 ABG pH 7.46 (7.35-7.45) H 01/13/23 18:40 ABG pCO2 29 mmHg (34-45) L 01/13/23 18:40 ABG pO2 77 mmHg (80-100) L 01/13/23 18:40 ABG HCO3 20.2 mmol/L (22.0-26.0) L 01/13/23 18:40 ABG Total CO2 21.1 MMOL/L (21.0-29.0) 01/13/23 18:40 ABG O2 Saturation 96 % (94-98) 01/13/23 18:40 ABG Base Excess -2.1 mmol/L (-2.0-3.0) L 01/13/23 18:40 Donald Test POSITIVE 01/13/23 18:40 O2 Delivery Device NASAL CANNULA 01/13/23 18:40 O2 Liters/Min 2.00 LPM 01/13/23 18:40 Sodium 129 mmol/L (135-145) L 01/17/23 05:37 Potassium 3.3 mmol/L (3.5-4.5) L 01/17/23 05:37 Chloride 95 mmol/L (101-111) L 01/17/23 05:37 Carbon Dioxide 25 mmol/L (21-32) 01/17/23 05:37 Anion Gap 9.0 (6-13) 01/17/23 05:37 BUN 15 mg/dL (6-20) 01/17/23 05:37 Creatinine 1.1 mg/dL (0.6-1.3) 01/17/23 05:37 Estimated GFR (MDRD) 64 (>89) L 01/17/23 05:37 Glucose 112 mg/dL (74-104) H 01/17/23 05:37 Calcium 8.2 mg/dL (8.5-10.3) L 01/17/23 05:37 Total Bilirubin 0.8 mg/dL (0.2-1.0) 01/14/23 04:30 Direct Bilirubin 0.16 mg/dL (0.03-0.18) 01/14/23 04:30 AST 32 IU/L (10-42) 01/14/23 04:30 ALT 20 IU/L (10-60) 01/14/23 04:30 Alkaline Phosphatase 78 IU/L (42-121) 01/14/23 04:30 Troponin I High Sens 21.8 ng/L (2.3-19.7) H* 01/13/23 16:26 B-Natriuretic Peptide 59 pg/mL (5-100) 01/13/23 13:21 Total Protein 6.4 g/dL (6.4-8.9) 01/14/23 04:30 Albumin 3.4 g/dL (3.2-5.5) 01/14/23 04:30 Globulin 3.0 g/dL (2.1-4.2) 01/14/23 04:30 Albumin/Globulin Ratio 1.2 (1.0-2.2) 01/13/23 18:20 Lipase 33 U/L (11-82) 01/13/23 13:21 TSH 4.55 uIU/mL (0.34-5.60) 01/13/23 13:21 Free T4 Direct 0.87 ng/dL (0.58-1.64) 01/13/23 13:21 Fluid Source PLEURAL 01/14/23 09:45 Fluid Color PINK 01/14/23 09:45 Fluid Clarity HAZY 01/14/23 09:45 Fluid WBC 459 /mm^3 01/14/23 09:45 Fluid RBC 05951 /mm^3 01/14/23 09:45 Fluid Neutrophils % 15.0 % 01/14/23 09:45 Fluid Lymphocytes % 76.0 % 01/14/23 09:45 Fluid Monocytes % 1.0 % 01/14/23 09:45 Fluid Eosinophils % 2.0 % 01/14/23 09:45 Fluid Macrophages % 3.0 % 01/14/23 09:45 Fld Mesothelial Cell % 3.0 % 01/14/23 09:45 Fluid Glucose 88 mg/dL (.) 01/14/23 09:45 Fluid Total Protein 3.8 g/dL (.) 01/14/23 09:45 Fluid LDH 133 IU/L (.) 01/14/23 09:45 Nasal Adenovirus (PCR) NOT DETECTED 01/13/23 14:35 Nasal B. parapertussis DNA (PCR) NOT DETECTED 01/13/23 14:35 Nasal Coronavir 229E PCR NOT DETECTED 01/13/23 14:35 Nasal Coronavir HKU1 PCR NOT DETECTED 01/13/23 14:35 Nasal Coronavir NL63 PCR NOT DETECTED 01/13/23 14:35 Nasal Coronavir OC43 PCR NOT DETECTED 01/13/23 14:35 Nasal Enterovir/Rhinovir PCR NOT DETECTED 01/13/23 14:35 Nasal Influenza B PCR NOT DETECTED 01/13/23 14:35 Nasal Influenza A PCR NOT DETECTED 01/13/23 14:35 Nasal Parainfluen 1 PCR NOT DETECTED 01/13/23 14:35 Nasal Parainfluen 2 PCR NOT DETECTED 01/13/23 14:35 Nasal Parainfluen 3 PCR NOT DETECTED 01/13/23 14:35 Nasal Parainfluen 4 PCR NOT DETECTED 01/13/23 14:35 Nasal RSV (PCR) NOT DETECTED 01/13/23 14:35 Nasal B.pertussis DNA PCR NOT DETECTED 01/13/23 14:35 Nasal C.pneumoniae (PCR) NOT DETECTED 01/13/23 14:35 Jamin Human Metapneumo PCR NOT DETECTED 01/13/23 14:35 Nasal M.pneumoniae (PCR) NOT DETECTED 01/13/23 14:35 Nasal SARS-CoV-2 (PCR) NOT DETECTED 01/13/23 14:35 Sepsis Event Note (H) - Evaluation Current Stage of Sepsis: Ruled out Current Medications - Current Medications Current Medications: Active Medications Generic Name Dose Route Start Last Admin Trade Name Freq PRN Reason Stop Dose Admin Acetaminophen 650 mg 01/13/23 15:52 Acetaminophen 325 Mg Tablet PO Q4HR PRN Pain 1 to 4, or Fever Apixaban 5 mg 01/13/23 21:00 01/19/23 08:28 Apixaban 5 Mg Tablet PO 5 mg BID JUNITO Administration Diltiazem HCl 360 mg 01/17/23 15:00 01/19/23 08:28 Diltiazem Cd 180 Mg Capsule PO 360 mg DAILY JUNITO Administration Diphenhydramine HCl 25 mg 01/15/23 14:27 01/15/23 14:33 Diphenhydramine 25 Mg Capsule PO 25 mg Q4HR PRN Administration Allergy Symptoms Furosemide 40 mg 01/17/23 14:00 01/19/23 08:28 Furosemide 40 Mg Tablet PO 40 mg DAILY JUNITO Administration Ceftriaxone Sodium 1 gm/ 100 mls @ 200 mls/hr 01/14/23 14:00 01/19/23 14:45 Sodium Chloride IV 01/20/23 15:00 Infused Q24H JUNITO Infusion Lorazepam 1 mg 01/13/23 18:12 01/15/23 00:20 Lorazepam 2 Mg/Ml Vial IVP 1 mg Q30M PRN Administration CIWA >8 Protocol Mineral Oil 1 applic 01/14/23 21:33 01/17/23 16:28 Min Oil/Dimethicon/Coconut Oil 92 Gm Tube TOP 1 applic PRN PRN Administration Skin Care Ondansetron HCl 4 mg 01/13/23 15:52 Ondansetron 4 Mg/2 Ml Vial IVP Q6HR PRN Nausea / Vomiting Polyethylene Glycol 17 gm 01/18/23 14:00 01/19/23 08:28 Polyethylene Glycol 3350 17 Gm Packet PO Not Given DAILY [facility] Multivit/Folic Acid/Iron 1 tab 01/14/23 09:00 01/19/23 08:28 Vitamin Tablet PO 1 tab DAILY JUNITO Administration Sodium Chloride 10 ml 01/13/23 15:52 01/16/23 06:19 Sodium Chloride Flush 0.9% 10 Ml Syringe IVP 10 ml PRN PRN Administration NEEDED PER PROVIDER ORDERS Sodium Chloride 10 ml 01/13/23 17:00 01/19/23 08:28 Sodium Chloride Flush 0.9% 10 Ml Syringe IVP 10 ml 0100,0900,1700 JUNITO Administration Thiamine HCl 100 mg 01/14/23 09:00 01/19/23 08:28 Thiamine 100 Mg Tablet PO 100 mg DAILY JUNITO Administration Zinc Oxide 113 gm 01/14/23 13:56 01/17/23 11:58 Cod Liver Oil/Zinc Oxide 113 Gm Tube TOP 1 applic PRN PRN Administration Skin Care Apixaban [Eliquis] 5 mg PO BID 01/13/23 Testosterone Cypionate 0.75 ml IM UD 01/14/23
[2023-01-20] MEDS: THIAMINE 100 MG TABLET PO SCH (08:45)
[2023-01-20] MEDS: APIXABAN 5 MG TABLET PO SCH ×2 (08:45→20:34)
[2023-01-20] MEDS: FUROSEMIDE 40 MG TABLET PO SCH (08:45)
[2023-01-20] MEDS: SODIUM CHLORIDE FLUSH 0.9% 10 ML SYRINGE IVP SCH ×2 (08:45→16:30)
[2023-01-20] MEDS: diltiaZEM CD 180 MG CAPSULE PO SCH (08:45)
[2023-01-20] MEDS: polyethylene glycoL 3350 17 GM PACKET PO SCH (08:45)
[2023-01-20] MEDS: PRENATAL VITAMIN TABLET PO SCH (08:45)
[2023-01-20 08:50] LABS: CALCIUM 8.8 mg/dL (8.5-10.3); CREATININE 1.1 mg/dL (0.6-1.3); POTASSIUM 3.6 mmol/L (3.5-4.5)
--- NOTE | 2023-01-20 11:00 | PROVIDER PROGRESS NOTE ---
Assessment/Plan - Problem List (1) Acute respiratory failure with hypoxia Assessment/Plan: (1) Acute respiratory failure with hypoxia Assessment/Plan: Assessment/Plan: Underwent thoracentesis on 01/16 with removal of 1.6 L of pleural fluid. Weaned off of oxygen. Culture negative. Pathology pending. (2) Alcohol withdrawal Assessment/Plan: --Discontinue Librium per family request. I do not think he is withdrawing. He has a prior history of drinking 2x glasses of wine daily. Continue thaimine and multivitamin supplements. (3) Altered mental status Qualifiers: Altered mental status type: disorientation Qualified Code(s): R41.0 - Disorientation, unspecified Assessment/Plan: -- Encephalopathy is much improved after using CPAP nightly. -- I did recommend outpatient follow-up with a neurologist given that his cond ition and mental status has been declining for several years. -- Family do not want an MRI of his brain performed while inpatient to r/o CVA given his foot drop. --He likely suffers from underlying dementia which has been progressing. --SNF would like to see improvement in his mentation prior to acceptance. I feel he is likely as close to baseline as he will get. (4) Atrial fibrillation with RVR Assessment/Plan: --Continue diltiazem. Heart rate well controlled. Have removed him from telemetry. --Anticoagulated with Eliquis. (5) Hyponatremia Assessment/Plan: --Sodium is stable. (6) Melanoma Qualifiers: Melanoma location: neck Qualified Code(s): C43.4 - Malignant melanoma of scalp and neck Assessment/Plan: --Remote history of a melanoma excision on his posterior neck. An MRI of his abdomen and lung was performed during this admission. MRI of the abdomen shows a 4.8 cm mass which is worrisome. This will eventually need to be biopsied. There is also evidence of nodules on his lung MRI. Family would like to get this taken care of in [place]. However there will be several social challenges. (7) Pleural effusion Assessment/Plan: --Culture and pathology pending. 1.6L was taken off via thoracentesis on 01/14. (8) Pneumonia Qualifiers: Pneumonia type: due to unspecified organism Laterality: left Lung location: lower lobe of lung Qualified Code(s): J18.9 - Pneumonia, unspecified organism Assessment/Plan: --Antibiotics complete on 01/20. His pleural effusion culture is negative. (9) Weakness Assessment/Plan: --Case was discussed with PT/OT. They are preliminarily recommending postacute given his general decline in cognition as well as profound weakness. He is also having a left-sided foot drop. --High risk for falls. --We are working on a safe discharge plan with social work. (3) Altered mental status Qualifiers: Altered mental status type: disorientation Qualified Code(s): R41.0 - Disorientation, unspecified (6) Melanoma Qualifiers: Melanoma location: neck Qualified Code(s): C43.4 - Malignant melanoma of scalp and neck (8) Pneumonia Qualifiers: Pneumonia type: due to unspecified organism Laterality: left Lung location: lower lobe of lung Qualified Code(s): J18.9 - Pneumonia, unspecified organism - Current Meds Current Meds: Current Medications Generic Name Dose Route Start Last Admin Trade Name Freq PRN Reason Stop Dose Admin Apixaban 5 mg 01/13/23 21:00 01/20/23 08:45 Apixaban 5 Mg Tablet PO 5 mg BID JUNITO Administration Diltiazem HCl 360 mg 01/17/23 15:00 01/20/23 08:45 Diltiazem Cd 180 Mg Capsule PO 360 mg DAILY JUNITO Administration Diphenhydramine HCl 25 mg 01/15/23 14:27 01/15/23 14:33 Diphenhydramine 25 Mg Capsule PO 25 mg Q4HR PRN Administration Allergy Symptoms Furosemide 40 mg 01/17/23 14:00 01/20/23 08:45 Furosemide 40 Mg Tablet PO 40 mg DAILY JUNITO Administration Ceftriaxone Sodium 1 gm/ 100 mls @ 200 mls/hr 01/14/23 14:00 01/19/23 14:45 Sodium Chloride IV 01/20/23 15:00 Infused Q24H JUNITO Infusion Lorazepam 1 mg 01/13/23 18:12 01/15/23 00:20 Lorazepam 2 Mg/Ml Vial IVP 1 mg Q30M PRN Administration CIWA >8 Protocol Mineral Oil 1 applic 01/14/23 21:33 01/17/23 16:28 Min Oil/Dimethicon/Coconut Oil 92 Gm Tube TOP 1 applic PRN PRN Administration Skin Care Polyethylene Glycol 17 gm 01/18/23 14:00 11/12/23 08:45 Polyethylene Glycol 3350 17 Gm Packet PO Not Given DAILY JUNITO Multivit/Folic Acid/Iron 1 tab 01/14/23 09:00 01/20/23 08:45 Vitamin Tablet PO 1 tab DAILY JUNITO Administration Sodium Chloride 10 ml 01/13/23 15:52 01/16/23 06:19 Sodium Chloride Flush 0.9% 10 Ml Syringe IVP 10 ml PRN PRN Administration NEEDED PER PROVIDER ORDERS Sodium Chloride 10 ml 01/13/23 17:00 01/20/23 08:45 Sodium Chloride Flush 0.9% 10 Ml Syringe IVP 10 ml 0100,0900,1700 JUNITO Administration Thiamine HCl 100 mg 01/14/23 09:00 01/20/23 08:45 Thiamine 100 Mg Tablet PO 100 mg DAILY JUNITO Administration Zinc Oxide 113 gm 01/14/23 13:56 01/17/23 11:58 Cod Liver Oil/Zinc Oxide 113 Gm Tube TOP 1 applic PRN PRN Administration Skin Care - Lab Result Fish Bone Diagrams: 01/17/23 05:37 01/20/23 07:56 Subjective - Subjective Patient Reports: Feeling Better, Resting Comfortably, No Complaints Objective Vital Signs: Vital Signs - 24 hr 01/19/23 01/19/23 01/19/23 12:44 15:58 20:42 Temperature 36.8 C 36.6 C 36.7 C Heart Rate [ 92 76 95 Brachial] Respiratory 20 18 17 Rate Blood Pressure 133/63 H 141/66 H 147/64 H [Right Brachial artery] O2 Saturation 92 92 91 L 01/19/23 01/20/23 01/20/23 20:45 06:31 08:54 Temperature 36.7 C 37.0 C Heart Rate [ 98 100 Brachial] Respiratory 24 20 Rate Blood Pressure 135/76 H 131/61 H [Right Brachial artery] O2 Saturation 92 92 92 Oxygen O2 Source Room air Oxygen Flow Rate 2 I&O (Last 24 Hrs): Intake and Output Totals x24h 01/18/23 01/19/23 01/20/23 23:59 23:59 23:59 Intake Total 460 840 360 Output Total 550 500 Balance -90 340 360 General: Alert, Oriented x3, Cooperative, No acute distress Neuro: Alert, CN 2-12 Grossly Intact, Oriented Times 3 Cardiovascular: Regular rate, Normal S1, Normal S2, No murmurs Respiratory: Chest non-tender, No respiratory distress, Breath sounds nml Abdomen: Normal bowel sounds, Soft, No tenderness, No hepatospenomegaly, No masses Extremities: No clubbing, No cyanosis, No edema, Normal pulses, No tenderness/swelling - Results Results: Laboratory Results WBC 11.4 x10^3/uL (4.8-10.8) H 01/17/23 05:37 RBC 4.39 10^6/uL (4.70-6.10) L 01/17/23 05:37 Hgb 15.1 g/dL (14.0-18.0) 01/17/23 05:37 Hct 43.3 % (42.0-52.0) 01/17/23 05:37 MCV 98.6 fL (80.0-94.0) H 01/17/23 05:37 MCH 34.4 pg (27.0-31.0) H 01/17/23 05:37 MCHC 34.9 g/dL (32.0-36.0) 01/17/23 05:37 RDW 12.4 % (12.0-15.0) 01/17/23 05:37 Plt Count 222 10^3/uL (130-450) 01/17/23 05:37 MPV 10.7 fL (7.4-11.4) 01/17/23 05:37 Neut # (Auto) 9.5 10^3/uL (1.5-6.6) H 01/17/23 05:37 Lymph # (Auto) 0.8 10^3/uL (1.5-3.5) L 01/17/23 05:37 [place] # (Auto) 1.0 10^3/uL (0.0-1.0) 01/17/23 05:37 Eos # (Auto) 0.1 10^3/uL (0.0-0.7) 01/17/23 05:37 Baso # (Auto) 0.1 10^3/uL (0.0-0.1) 01/17/23 05:37 Absolute Nucleated RBC 0.00 x10^3/uL 01/17/23 05:37 Nucleated RBC % 0.0 /100WBC 01/17/23 05:37 PT 14.4 secs (9.9-12.6) H 01/14/23 04:30 INR 1.4 (0.8-1.2) H 01/14/23 04:30 Bld Gas Analysis Time 1848 01/13/23 18:40 Sample Site RIGHT RADIAL 01/13/23 18:40 ABG pH 7.46 (7.35-7.45) H 01/13/23 18:40 ABG pCO2 29 mmHg (34-45) L 01/13/23 18:40 ABG pO2 77 mmHg (80-100) L 01/13/23 18:40 ABG HCO3 20.2 mmol/L (22.0-26.0) L 01/13/23 18:40 ABG Total CO2 21.1 MMOL/L (21.0-29.0) 01/13/23 18:40 ABG O2 Saturation 96 % (94-98) 01/13/23 18:40 ABG Base Excess -2.1 mmol/L (-2.0-3.0) L 01/13/23 18:40 Donald Test POSITIVE 01/13/23 18:40 O2 Delivery Device NASAL CANNULA 01/13/23 18:40 O2 Liters/Min 2.00 LPM 01/13/23 18:40 Sodium 131 mmol/L (135-145) L 01/20/23 07:56 Potassium 3.6 mmol/L (3.5-4.5) 01/20/23 07:56 Chloride 96 mmol/L (101-111) L 01/20/23 07:56 Carbon Dioxide 27 mmol/L (21-32) 01/20/23 07:56 Anion Gap 8.0 (6-13) 01/20/23 07:56 BUN 21 mg/dL (6-20) H 01/20/23 07:56 Creatinine 1.1 mg/dL (0.6-1.3) 01/20/23 07:56 Estimated GFR (MDRD) 64 (>89) L 01/20/23 07:56 Glucose 115 mg/dL (74-104) H 01/20/23 07:56 Calcium 8.8 mg/dL (8.5-10.3) 01/20/23 07:56 Total Bilirubin 0.8 mg/dL (0.2-1.0) 01/14/23 04:30 Direct Bilirubin 0.16 mg/dL (0.03-0.18) 01/14/23 04:30 AST 32 IU/L (10-42) 01/14/23 04:30 ALT 20 IU/L (10-60) 01/14/23 04:30 Alkaline Phosphatase 78 IU/L (42-121) 01/14/23 04:30 Troponin I High Sens 21.8 ng/L (2.3-19.7) H* 01/13/23 16:26 B-Natriuretic Peptide 59 pg/mL (5-100) 01/13/23 13:21 Total Protein 6.4 g/dL (6.4-8.9) 01/14/23 04:30 Albumin 3.4 g/dL (3.2-5.5) 01/14/23 04:30 Globulin 3.0 g/dL (2.1-4.2) 01/14/23 04:30 Albumin/Globulin Ratio 1.2 (1.0-2.2) 01/13/23 18:20 Lipase 33 U/L (11-82) 01/13/23 13:21 TSH 4.55 uIU/mL (0.34-5.60) 01/13/23 13:21 Free T4 Direct 0.87 ng/dL (0.58-1.64) 01/13/23 13:21 Fluid Source PLEURAL 01/14/23 09:45 Fluid Color PINK 01/14/23 09:45 Fluid Clarity HAZY 01/14/23 09:45 Fluid WBC 459 /mm^3 01/14/23 09:45 Fluid RBC 17607 /mm^3 01/14/23 09:45 Fluid Neutrophils % 15.0 % 01/14/23 09:45 Fluid Lymphocytes % 76.0 % 01/14/23 09:45 Fluid Monocytes % 1.0 % 01/14/23 09:45 Fluid Eosinophils % 2.0 % 01/14/23 09:45 Fluid Macrophages % 3.0 % 01/14/23 09:45 Fld Mesothelial Cell % 3.0 % 01/14/23 09:45 Fluid Glucose 88 mg/dL (.) 01/14/23 09:45 Fluid Total Protein 3.8 g/dL (.) 01/14/23 09:45 Fluid LDH 133 IU/L (.) 01/14/23 09:45 Nasal Adenovirus (PCR) NOT DETECTED 01/13/23 14:35 Nasal B. parapertussis DNA (PCR) NOT DETECTED 01/13/23 14:35 Nasal Coronavir 229E PCR NOT DETECTED 01/13/23 14:35 Nasal Coronavir HKU1 PCR NOT DETECTED 01/13/23 14:35 Nasal Coronavir NL63 PCR NOT DETECTED 01/13/23 14:35 Nasal Coronavir OC43 PCR NOT DETECTED 01/13/23 14:35 Nasal Enterovir/Rhinovir PCR NOT DETECTED 01/13/23 14:35 Nasal Influenza B PCR NOT DETECTED 01/13/23 14:35 Nasal Influenza A PCR NOT DETECTED 01/13/23 14:35 Nasal Parainfluen 1 PCR NOT DETECTED 01/13/23 14:35 Nasal Parainfluen 2 PCR NOT DETECTED 01/13/23 14:35 Nasal Parainfluen 3 PCR NOT DETECTED 01/13/23 14:35 Nasal Parainfluen 4 PCR NOT DETECTED 01/13/23 14:35 Nasal RSV (PCR) NOT DETECTED 01/13/23 14:35 Nasal B.pertussis DNA PCR NOT DETECTED 01/13/23 14:35 Nasal C.pneumoniae (PCR) NOT DETECTED 01/13/23 14:35 Jamin Human Metapneumo PCR NOT DETECTED 01/13/23 14:35 Nasal M.pneumoniae (PCR) NOT DETECTED 01/13/23 14:35 Nasal SARS-CoV-2 (PCR) NOT DETECTED 01/13/23 14:35 Sepsis Event Note (H) - Evaluation Current Stage of Sepsis: Ruled out Current Medications - Current Medications Current Medications: Active Medications Generic Name Dose Route Start Last Admin Trade Name Freq PRN Reason Stop Dose Admin Acetaminophen 650 mg 01/13/23 15:52 Acetaminophen 325 Mg Tablet PO Q4HR PRN Pain 1 to 4, or Fever Apixaban 5 mg 01/13/23 21:00 01/20/23 08:45 Apixaban 5 Mg Tablet PO 5 mg BID JUNITO Administration Diltiazem HCl 360 mg 01/17/23 15:00 01/20/23 08:45 Diltiazem Cd 180 Mg Capsule PO 360 mg DAILY JUNITO Administration Diphenhydramine HCl 25 mg 01/15/23 14:27 01/15/23 14:33 Diphenhydramine 25 Mg Capsule PO 25 mg Q4HR PRN Administration Allergy Symptoms Furosemide 40 mg 01/17/23 14:00 01/20/23 08:45 Furosemide 40 Mg Tablet PO 40 mg DAILY JUNITO Administration Ceftriaxone Sodium 1 gm/ 100 mls @ 200 mls/hr 01/14/23 14:00 01/19/23 14:45 Sodium Chloride IV 01/20/23 15:00 Infused Q24H JUNITO Infusion Lorazepam 1 mg 01/13/23 18:12 01/15/23 00:20 Lorazepam 2 Mg/Ml Vial IVP 1 mg Q30M PRN Administration CIWA >8 Protocol Mineral Oil 1 applic 01/14/23 21:33 01/17/23 16:28 Min Oil/Dimethicon/Coconut Oil 92 Gm Tube TOP 1 applic PRN PRN Administration Skin Care Ondansetron HCl 4 mg 01/13/23 15:52 Ondansetron 4 Mg/2 Ml Vial IVP Q6HR PRN Nausea / Vomiting Polyethylene Glycol 17 gm 01/18/23 14:00 01/20/23 08:45 Polyethylene Glycol 3350 17 Gm Packet PO Not Given DAILY [facility] Multivit/Folic Acid/Iron 1 tab 01/14/23 09:00 01/20/23 08:45 Vitamin Tablet PO 1 tab DAILY JUNITO Administration Sodium Chloride 10 ml 01/13/23 15:52 01/16/23 06:19 Sodium Chloride Flush 0.9% 10 Ml Syringe IVP 10 ml PRN PRN Administration NEEDED PER PROVIDER ORDERS Sodium Chloride 10 ml 01/13/23 17:00 01/20/23 08:45 Sodium Chloride Flush 0.9% 10 Ml Syringe IVP 10 ml 0100,0900,1700 JUNITO Administration Thiamine HCl 100 mg 01/14/23 09:00 01/20/23 08:45 Thiamine 100 Mg Tablet PO 100 mg DAILY JUNITO Administration Zinc Oxide 113 gm 01/14/23 13:56 01/17/23 11:58 Cod Liver Oil/Zinc Oxide 113 Gm Tube TOP 1 applic PRN PRN Administration Skin Care Apixaban [Eliquis] 5 mg PO BID 01/13/23 Testosterone Cypionate 0.75 ml IM UD 01/14/23
[2023-01-20] MEDS: cefTRIAXone 1 GM in SODIUM CHLORIDE 0.9% MINIBAG 100 ML IV SCH (13:52)
[2023-01-21] MEDS: SODIUM CHLORIDE FLUSH 0.9% 10 ML SYRINGE IVP SCH ×3 (00:11→17:22)
[2023-01-21] MEDS: polyethylene glycoL 3350 17 GM PACKET PO SCH (08:52)
[2023-01-21] MEDS: diltiaZEM CD 180 MG CAPSULE PO SCH (08:52)
[2023-01-21] MEDS: FUROSEMIDE 40 MG TABLET PO SCH (08:52)
[2023-01-21] MEDS: THIAMINE 100 MG TABLET PO SCH (08:52)
[2023-01-21] MEDS: PRENATAL VITAMIN TABLET PO SCH (08:52)
[2023-01-21] MEDS: APIXABAN 5 MG TABLET PO SCH ×2 (08:52→20:47)
--- NOTE | 2023-01-21 08:59 | PROVIDER PROGRESS NOTE ---
Assessment/Plan - Problem List (1) Acute respiratory failure with hypoxia Assessment/Plan: (1) Acute respiratory failure with hypoxia Assessment/Plan: Assessment/Plan: Underwent thoracentesis on 01/16 with removal of 1.6 L of pleural fluid. Weaned off of oxygen. Culture negative. Pathology pending. (2) Alcohol withdrawal Assessment/Plan: --Resolved. --Discontinue Librium per family request. I do not think he is withdrawing. He has a prior history of drinking 2x glasses of wine daily. Continue thaimine and multivitamin supplements. (3) Altered mental status Qualifiers: Altered mental status type: disorientation Qualified Code(s): R41.0 - D isorientation, unspecified Assessment/Plan: -- Encephalopathy is much improved after using CPAP nightly. -- I did recommend outpatient follow-up with a neurologist given that his condition and mental status has been declining for several years. -- Family do not want an MRI of his brain performed while inpatient to r/o CVA given his foot drop. --He likely suffers from underlying dementia which has been progressing. --SNF would like to see improvement in his mentation prior to acceptance. I feel he is likely as close to baseline as he will get. (4) Atrial fibrillation with RVR Assessment/Plan: --Continue diltiazem. Heart rate well controlled. Have removed him from telemetry. --Anticoagulated with Eliquis. (5) Hyponatremia Assessment/Plan: --Sodium is stable. (6) Melanoma Qualifiers: Melanoma location: neck Qualified Code(s): C43.4 - Malignant melanoma of scalp and neck Assessment/Plan: --Remote history of a melanoma excision on his posterior neck. An MRI of his abdomen and lung was performed during this admission. MRI of the abdomen shows a 4.8 cm mass which is worrisome. This will eventually need to be biopsied. There is also evidence of nodules on his lung MRI. Family would like to get this taken care of in [place]. However there will be several social challenges in regards to placement in [place]. Currently no bed is available. Family is able to provide their own transport in the form of a private pay ambulance. --I had a discussion with the son. A referral has been placed by his PCP in [place] for a Oncologist. I also encouraged him to ask the PCP to order a CT guided biopsy of the liver so that a tissue diagnosis would be made available before the consultation. (7) Pleural effusion Assessment/Plan: --Culture and pathology pending. 1.6L was taken off via thoracentesis on 01/14. --No hypoxia. (8) Pneumonia Qualifiers: Pneumonia type: due to unspecified organism Laterality: left Lung location: lower lobe of lung Qualified Code(s): J18.9 - Pneumonia, unspecified organism Assessment/Plan: --Antibiotics complete on 01/20. His pleural effusion culture is negative. (9) Weakness Assessment/Plan: --Case was discussed with PT/OT. They are preliminarily recommending postacute given his general decline in cognition as well as profound weakness. He is also having a left-sided foot drop. --High risk for falls. --We are working on a safe discharge plan with social work. Family is requesting placement in [place] as he is moving there. (3) Altered mental status Qualifiers: Altered mental status type: disorientation Qualified Code(s): R41.0 - Disorientation, unspecified (6) Melanoma Qualifiers: Melanoma location: neck Qualified Code(s): C43.4 - Malignant melanoma of scalp and neck (8) Pneumonia Qualifiers: Pneumonia type: due to unspecified organism Laterality: left Lung location: lower lobe of lung Qualified Code(s): J18.9 - Pneumonia, unspecified organism - Current Meds Current Meds: Current Medications Generic Name Dose Route Start Last Admin Trade Name Freq PRN Reason Stop Dose Admin Apixaban 5 mg 01/13/23 21:00 01/21/23 08:52 Apixaban 5 Mg Tablet PO 5 mg BID JUNITO Administration Diltiazem HCl 360 mg 01/17/23 15:00 01/21/23 08:52 Diltiazem Cd 180 Mg Capsule PO 360 mg DAILY JUNITO Administration Diphenhydramine HCl 25 mg 01/15/23 14:27 01/15/23 14:33 Diphenhydramine 25 Mg Capsule PO 25 mg Q4HR PRN Administration Allergy Symptoms Furosemide 40 mg 01/17/23 14:00 01/21/23 08:52 Furosemide 40 Mg Tablet PO 40 mg DAILY JUNITO Administration Lorazepam 1 mg 01/13/23 18:12 01/15/23 00:20 Lorazepam 2 Mg/Ml Vial IVP 1 mg Q30M PRN Administration CIWA >8 Protocol Mineral Oil 1 applic 01/14/23 21:33 01/17/23 16:28 Min Oil/Dimethicon/Coconut Oil 92 Gm Tube TOP 1 applic PRN PRN Administration Skin Care Polyethylene Glycol 17 gm 01/18/23 14:00 01/21/23 08:52 Polyethylene Glycol 3350 17 Gm Packet PO Not Given DAILY JUNITO Multivit/Folic Acid/Iron 1 tab 01/14/23 09:00 01/21/23 08:52 Vitamin Tablet PO 1 tab DAILY JUNITO Administration Sodium Chloride 10 ml 01/13/23 15:52 01/16/23 06:19 Sodium Chloride Flush 0.9% 10 Ml Syringe IVP 10 ml PRN PRN Administration NEEDED PER PROVIDER ORDERS Sodium Chloride 10 ml 01/13/23 17:00 01/21/23 08:52 Sodium Chloride Flush 0.9% 10 Ml Syringe IVP 10 ml 0100,0900,1700 JUNITO Administration Thiamine HCl 100 mg 01/14/23 09:00 01/21/23 08:52 Thiamine 100 Mg Tablet PO 100 mg DAILY JUNITO Administration Zinc Oxide 113 gm 01/14/23 13:56 01/17/23 11:58 Cod Liver Oil/Zinc Oxide 113 Gm Tube TOP 1 applic PRN PRN Administration Skin Care - Lab Result Fish Bone Diagrams: 01/17/23 05:37 01/20/23 07:56 Subjective - Subjective Patient Reports: Feeling Better, Resting Comfortably, No Complaints Objective Vital Signs: Vital Signs - 24 hr 01/20/23 01/20/23 01/21/23 16:05 21:00 05:56 Temperature 36.9 C 36.3 C L 36.6 C Heart Rate [ 92 94 95 Brachial] Respiratory 24 24 22 Rate Blood Pressure 134/69 H 146/68 H 132/67 H [Right Brachial artery] O2 Saturation 92 91 L 01/21/23 08:30 Temperature 36.4 C L Heart Rate [ 98 Brachial] Respiratory 20 Rate Blood Pressure 127/76 [Right Brachial artery] O2 Saturation 92 Oxygen O2 Source Room air Oxygen Flow Rate 2 I&O (Last 24 Hrs): Intake and Output Totals x24h 01/19/23 01/20/23 01/21/23 23:59 23:59 23:59 Intake Total 840 1100 240 Output Total 500 150 Balance 340 950 240 General: Alert, Oriented x3, Cooperative, No acute distress Neuro: Alert, CN 2-12 Grossly Intact, Oriented Times 3 Cardiovascular: Regular rate, Normal S1, Normal S2, No murmurs Respiratory: Chest non-tender, No respiratory distress, Breath sounds nml Abdomen: Normal bowel sounds, Soft, No tenderness, No hepatospenomegaly, No masses Skin: No rashes, No breakdown, No significant lesion - Results Results: Laboratory Results WBC 11.4 x10^3/uL (4.8-10.8) H 01/17/23 05:37 RBC 4.39 10^6/uL (4.70-6.10) L 01/17/23 05:37 Hgb 15.1 g/dL (14.0-18.0) 01/17/23 05:37 Hct 43.3 % (42.0-52.0) 01/17/23 05:37 MCV 98.6 fL (80.0-94.0) H 01/17/23 05:37 MCH 34.4 pg (27.0-31.0) H 01/17/23 05:37 MCHC 34.9 g/dL (32.0-36.0) 01/17/23 05:37 RDW 12.4 % (12.0-15.0) 01/17/23 05:37 Plt Count 222 10^3/uL (130-450) 01/17/23 05:37 MPV 10.7 fL (7.4-11.4) 01/17/23 05:37 Neut # (Auto) 9.5 10^3/uL (1.5-6.6) H 01/17/23 05:37 Lymph # (Auto) 0.8 10^3/uL (1.5-3.5) L 01/17/23 05:37 Sutton # (Auto) 1.0 10^3/uL (0.0-1.0) 01/17/23 05:37 Eos # (Auto) 0.1 10^3/uL (0.0-0.7) 01/17/23 05:37 Baso # (Auto) 0.1 10^3/uL (0.0-0.1) 01/17/23 05:37 Absolute Nucleated RBC 0.00 x10^3/uL 01/17/23 05:37 Nucleated RBC % 0.0 /100WBC 01/17/23 05:37 PT 14.4 secs (9.9-12.6) H 01/14/23 04:30 INR 1.4 (0.8-1.2) H 01/14/23 04:30 Bld Gas Analysis Time 1848 01/13/23 18:40 Sample Site RIGHT RADIAL 01/13/23 18:40 ABG pH 7.46 (7.35-7.45) H 01/13/23 18:40 ABG pCO2 29 mmHg (34-45) L 01/13/23 18:40 ABG pO2 77 mmHg (80-100) L 01/13/23 18:40 ABG HCO3 20.2 mmol/L (22.0-26.0) L 01/13/23 18:40 ABG Total CO2 21.1 MMOL/L (21.0-29.0) 01/13/23 18:40 ABG O2 Saturation 96 % (94-98) 01/13/23 18:40 ABG Base Excess -2.1 mmol/L (-2.0-3.0) L 01/13/23 18:40 Donald Test POSITIVE 01/13/23 18:40 O2 Delivery Device NASAL CANNULA 01/13/23 18:40 O2 Liters/Min 2.00 LPM 01/13/23 18:40 Sodium 131 mmol/L (135-145) L 01/20/23 07:56 Potassium 3.6 mmol/L (3.5-4.5) 01/20/23 07:56 Chloride 96 mmol/L (101-111) L 01/20/23 07:56 Carbon Dioxide 27 mmol/L (21-32) 01/20/23 07:56 Anion Gap 8.0 (6-13) 01/20/23 07:56 BUN 21 mg/dL (6-20) H 01/20/23 07:56 Creatinine 1.1 mg/dL (0.6-1.3) 01/20/23 07:56 Estimated GFR (MDRD) 64 (>89) L 01/20/23 07:56 Glucose 115 mg/dL (74-104) H 01/20/23 07:56 Calcium 8.8 mg/dL (8.5-10.3) 01/20/23 07:56 Total Bilirubin 0.8 mg/dL (0.2-1.0) 01/14/23 04:30 Direct Bilirubin 0.16 mg/dL (0.03-0.18) 01/14/23 04:30 AST 32 IU/L (10-42) 01/14/23 04:30 ALT 20 IU/L (10-60) 01/14/23 04:30 Alkaline Phosphatase 78 IU/L (42-121) 01/14/23 04:30 Troponin I High Sens 21.8 ng/L (2.3-19.7) H* 01/13/23 16:26 B-Natriuretic Peptide 59 pg/mL (5-100) 01/13/23 13:21 Total Protein 6.4 g/dL (6.4-8.9) 01/14/23 04:30 Albumin 3.4 g/dL (3.2-5.5) 01/14/23 04:30 Globulin 3.0 g/dL (2.1-4.2) 01/14/23 04:30 Albumin/Globulin Ratio 1.2 (1.0-2.2) 01/13/23 18:20 Lipase 33 U/L (11-82) 01/13/23 13:21 TSH 4.55 uIU/mL (0.34-5.60) 01/13/23 13:21 Free T4 Direct 0.87 ng/dL (0.58-1.64) 01/13/23 13:21 Fluid Source PLEURAL 01/14/23 09:45 Fluid Color PINK 01/14/23 09:45 Fluid Clarity HAZY 01/14/23 09:45 Fluid WBC 459 /mm^3 01/14/23 09:45 Fluid RBC 07649 /mm^3 01/14/23 09:45 Fluid Neutrophils % 15.0 % 01/14/23 09:45 Fluid Lymphocytes % 76.0 % 01/14/23 09:45 Fluid Monocytes % 1.0 % 01/14/23 09:45 Fluid Eosinophils % 2.0 % 01/14/23 09:45 Fluid Macrophages % 3.0 % 01/14/23 09:45 Fld Mesothelial Cell % 3.0 % 01/14/23 09:45 Fluid Glucose 88 mg/dL (.) 01/14/23 09:45 Fluid Total Protein 3.8 g/dL (.) 01/14/23 09:45 Fluid LDH 133 IU/L (.) 01/14/23 09:45 Nasal Adenovirus (PCR) NOT DETECTED 01/13/23 14:35 Nasal B. parapertussis DNA (PCR) NOT DETECTED 01/13/23 14:35 Nasal Coronavir 229E PCR NOT DETECTED 01/13/23 14:35 Nasal Coronavir HKU1 PCR NOT DETECTED 01/13/23 14:35 Nasal Coronavir NL63 PCR NOT DETECTED 01/13/23 14:35 Nasal Coronavir OC43 PCR NOT DETECTED 01/13/23 14:35 Nasal Enterovir/Rhinovir PCR NOT DETECTED 01/13/23 14:35 Nasal Influenza B PCR NOT DETECTED 01/13/23 14:35 Nasal Influenza A PCR NOT DETECTED 01/13/23 14:35 Nasal Parainfluen 1 PCR NOT DETECTED 01/13/23 14:35 Nasal Parainfluen 2 PCR NOT DETECTED 01/13/23 14:35 Nasal Parainfluen 3 PCR NOT DETECTED 01/13/23 14:35 Nasal Parainfluen 4 PCR NOT DETECTED 01/13/23 14:35 Nasal RSV (PCR) NOT DETECTED 01/13/23 14:35 Nasal B.pertussis DNA PCR NOT DETECTED 01/13/23 14:35 Nasal C.pneumoniae (PCR) NOT DETECTED 01/13/23 14:35 Jamin Human Metapneumo PCR NOT DETECTED 01/13/23 14:35 Nasal M.pneumoniae (PCR) NOT DETECTED 01/13/23 14:35 Nasal SARS-CoV-2 (PCR) NOT DETECTED 01/13/23 14:35 Sepsis Event Note (H) - Evaluation Current Stage of Sepsis: Ruled out Current Medications - Current Medications Current Medications: Active Medications Generic Name Dose Route Start Last Admin Trade Name Freq PRN Reason Stop Dose Admin Acetaminophen 650 mg 01/13/23 15:52 Acetaminophen 325 Mg Tablet PO Q4HR PRN Pain 1 to 4, or Fever Apixaban 5 mg 01/13/23 21:00 01/21/23 08:52 Apixaban 5 Mg Tablet PO 5 mg BID JUNITO Administration Diltiazem HCl 360 mg 01/17/23 15:00 01/21/23 08:52 Diltiazem Cd 180 Mg Capsule PO 360 mg DAILY JUNITO Administration Diphenhydramine HCl 25 mg 01/15/23 14:27 01/15/23 14:33 Diphenhydramine 25 Mg Capsule PO 25 mg Q4HR PRN Administration Allergy Symptoms Furosemide 40 mg 01/17/23 14:00 01/21/23 08:52 Furosemide 40 Mg Tablet PO 40 mg DAILY JUNITO Administration Lorazepam 1 mg 01/13/23 18:12 01/15/23 00:20 Lorazepam 2 Mg/Ml Vial IVP 1 mg Q30M PRN Administration CIWA >8 Protocol Mineral Oil 1 applic 01/14/23 21:33 01/17/23 16:28 Min Oil/Dimethicon/Coconut Oil 92 Gm Tube TOP 1 applic PRN PRN Administration Skin Care Ondansetron HCl 4 mg 01/13/23 15:52 Ondansetron 4 Mg/2 Ml Vial IVP Q6HR PRN Nausea / Vomiting Polyethylene Glycol 17 gm 01/18/23 14:00 01/21/23 08:52 Polyethylene Glycol 3350 17 Gm Packet PO Not Given DAILY [facility] Multivit/Folic Acid/Iron 1 tab 01/14/23 09:00 01/21/23 08:52 Vitamin Tablet PO 1 tab DAILY JUNITO Administration Sodium Chloride 10 ml 01/13/23 15:52 01/16/23 06:19 Sodium Chloride Flush 0.9% 10 Ml Syringe IVP 10 ml PRN PRN Administration NEEDED PER PROVIDER ORDERS Sodium Chloride 10 ml 01/13/23 17:00 01/21/23 08:52 Sodium Chloride Flush 0.9% 10 Ml Syringe IVP 10 ml 0100,0900,1700 JUNITO Administration Thiamine HCl 100 mg 01/14/23 09:00 01/21/23 08:52 Thiamine 100 Mg Tablet PO 100 mg DAILY JUNITO Administration Zinc Oxide 113 gm 01/14/23 13:56 01/17/23 11:58 Cod Liver Oil/Zinc Oxide 113 Gm Tube TOP 1 applic PRN PRN Administration Skin Care Apixaban [Eliquis] 5 mg PO BID 01/13/23 Testosterone Cypionate 0.75 ml IM UD 01/14/23
[2023-01-22] MEDS: SODIUM CHLORIDE FLUSH 0.9% 10 ML SYRINGE IVP SCH ×4 (00:50→23:42)
[2023-01-22] MEDS: PRENATAL VITAMIN TABLET PO SCH (08:16)
[2023-01-22] MEDS: diltiaZEM CD 180 MG CAPSULE PO SCH (08:16)
[2023-01-22] MEDS: THIAMINE 100 MG TABLET PO SCH (08:17)
[2023-01-22] MEDS: APIXABAN 5 MG TABLET PO SCH ×2 (08:17→20:51)
[2023-01-22] MEDS: polyethylene glycoL 3350 17 GM PACKET PO SCH (08:18)
[2023-01-22] MEDS ORDERED: diphenhydrAMINE 25 MG CAPSULE PO PRN (10:41)
--- NOTE | 2023-01-22 11:09 | XRAY Report ---
PROCEDURE: Chest 1 View X-Ray INDICATIONS: FRY, Pleural effusion F/U TECHNIQUE: One view of the chest was acquired. COMPARISON: Chest x-ray 01/15/2023 FINDINGS: Surgical changes and devices: None. Lungs and pleura: There is near complete opacification of the right hemithorax progressive compared to prior exam. The right base is incompletely included within the [id number] and cannot be evaluat ed. There is an overall appearance of increased vascularity. Mediastinum: Mediastinal contours appear normal. Heart size is enlarged. Bones and chest wall: No suspicious bony lesions. Overlying soft tissues appear unremarkable. IMPRESSION: Progressive effusion of the left hemithorax. Underlying areas of mass lesion, pneumonia and/or atelec tasis cannot be excluded. Increased vascularity suggestive of edema. Reviewed by: Queenie Fox MD on 01/22/2023 11:07 AM [facility] Approved by: Queenie Fox MD on 01/22/2023 11:07 AM [facility] Station ID: [id number]
--- NOTE | 2023-01-22 14:20 | PROVIDER PROGRESS NOTE ---
Assessment/Plan - Problem List (1) Pleural effusion Assessment/Plan: 1.6L was taken off via thoracentesis on 01/14. Today his resp rate increased and his O2 sat dropped to 92% on RA, after being comfortable and saturating >95% for a week. A CXR was repeated today and it shows re-accumulation of the L-sided pleural effusion. asked when Lasix can be stopped The pleural fluid cytology is back and it showed no malignant cells. I discussed this result today with the patient, and son in room. Plan: A repeat (therapeutic) thoracentesis was ordered to be done today under US guidance>> 2L was removed and the fluid was (unexpectedly) dark brown in color, thus I will order eval again with glu, prot, cell ct and culture Oral Lasix will be stopped (2) Altered mental status Qualifiers: Altered mental status type: disorientation Qualified Code(s): R41.0 - Disorientation, unspecified Assessment/Plan: Encephalopathy is much improved after using CPAP nightly. Family do not want an MRI of his brain performed while inpatient to r/o CVA given his foot drop. He likely suffers from underlying dementia which has been progressing. Plan: We will recommend outpatient follow-up with a Neurologist given his weak condition and mental status, which has been declining for several mos. SNF would like to see improvement in his mentation prior to acceptance, but I feel he is likely as close to baseline as he will get. (3) Weakness Assessment/Plan: Case was discussed with PT/OT. They are still recommending postacute rehab at a SNF, given his general decline in cognition as well as profound weakness. He is also having a left-sided foot drop. Family did not want brain imaging to eval for a stroke He has a high risk for falls. Plan: We are working on a safe discharge plan with social work. Family is requesting SNF placement in [place] as he and his have sold their house and are moving there. (4) Chronic Atrial fibrillation Assessment/Plan: Plan: Continue po Diltiazem. Heart rate well controlled now. We have removed him from telemetry. Anticoagulated with Eliquis. Plan: If the repeat pleural fluid has alot of RBCs, he may have to be taken off Eliquis (5) Melanoma Qualifiers: Melanoma location: neck Qualified Code(s): C43.4 - Malignant melanoma of scalp and neck Assessment/Plan: History of a melanoma excision on his posterior neck. An MRI of his abdomen and lung was performed during this admission. MRI of the abdomen shows a 4.8 cm liver mass which is worrisome. This will eventually need to be biopsied. There is also evidence of nodules on his lung MRI. Family would like to have this evaluated and managed in [place]. However there will be several social challenges in regards to placement in [place]. Family is able to provide their own transport in the form of a private pay ambulance. Plan: A referral has been placed by his PCP in [place] for a Oncologist (the son spoke to the PCP).. The PCP will need to order a CT guided biopsy of the liver so that a tissue diagnosis would be made available before the Oncology consultation. (6) RAUDEL on CPAP Assessment/Plan: Encephalopathy is much improved after using CPAP nightly. Plan: Cont home CPAP here (7) Pneumonia Qualifiers: Pneumonia type: due to unspecified organism Laterality: left Lung location: lower lobe of lung Qualified Code(s): J18.9 - Pneumonia, unspecified organism Assessment/Plan: Antibiotics complete on 01/20. His pleural effusion culture was negative. (8) Acute respiratory failure with hypoxia Assessment/Plan: Hypoxia resolved (9) Alcohol use Assessment/Plan: He has a prior history of drinking 2x glasses of wine daily. Alcohol withdrawal resolved. We have discontinue Librium per family request and to decrease sedatives Plan: Continue thaimine and multivitamin supplements. (10) Hyponatremia Assessment/Plan: Sodium was stable, last checked several days ago. Plan: He is still on a free water restriction Will recheck Na tomorrow - Current Meds Current Meds: Current Medications Generic Name Dose Route Start Last Admin Trade Name Freq PRN Reason Stop Dose Admin Apixaban 5 mg 01/13/23 21:00 01/22/23 08:17 Apixaban 5 Mg Tablet PO 5 mg BID JUNITO Administration Diltiazem HCl 360 mg 01/17/23 15:00 01/22/23 08:16 Diltiazem Cd 180 Mg Capsule PO 360 mg DAILY JUNITO Administration Lorazepam 1 mg 01/13/23 18:12 01/15/23 00:20 Lorazepam 2 Mg/Ml Vial IVP 1 mg Q30M PRN Administration CIWA >8 Protocol Mineral Oil 1 applic 01/14/23 21:33 01/17/23 16:28 Min Oil/Dimethicon/Coconut Oil 92 Gm Tube TOP 1 applic PRN PRN Administration Skin Care Polyethylene Glycol 17 gm 01/18/23 14:00 01/22/23 08:18 Polyethylene Glycol 3350 17 Gm Packet PO Not Given DAILY JUNITO Multivit/Folic Acid/Iron 1 tab 01/14/23 09:00 01/22/23 08:16 Vitamin Tablet PO 1 tab DAILY JUNITO Administration Sodium Chloride 10 ml 01/13/23 15:52 01/16/23 06:19 Sodium Chloride Flush 0.9% 10 Ml Syringe IVP 10 ml PRN PRN Administration NEEDED PER PROVIDER ORDERS Sodium Chloride 10 ml 01/13/23 17:00 01/22/23 08:17 Sodium Chloride Flush 0.9% 10 Ml Syringe IVP 10 ml 0100,0900,1700 JUNITO Administration Thiamine HCl 100 mg 01/14/23 09:00 01/22/23 08:17 Thiamine 100 Mg Tablet PO 100 mg DAILY JUNITO Administration Zinc Oxide 113 gm 01/14/23 13:56 01/17/23 11:58 Cod Liver Oil/Zinc Oxide 113 Gm Tube TOP 1 applic PRN PRN Administration Skin Care - Lab Result Fish Bone Diagrams: 01/17/23 05:37 01/20/23 07:56 - Diagnostic Imaging Results Diagnostic Imaging Results: Final report reviewed - Additional Planning My Orders: My Active Orders 01/22/23 10:41 diphenhydrAMINE [Benadryl] 25 mg PO Q8HR PRN 01/22/23 11:53 Thoracentesis Puncture [US] Stat Subjective - Subjective Patient Reports: Shortness of Breath Objective Vital Signs: Vital Signs - 24 hr 01/21/23 01/21/23 01/22/23 15:56 21:00 00:25 Temperature 36.7 C 36.4 C L 36.7 C Heart Rate [ 88 95 82 Brachial] Respiratory 18 16 18 Rate Blood Pressure 127/82 H 126/74 136/72 H [Right Brachial artery] O2 Saturation 94 97 92 01/22/23 01/22/23 05:00 08:13 Temperature 37.0 C 36.8 C Heart Rate [ 81 82 Brachial] Respiratory 17 20 Rate Blood Pressure 130/70 136/60 H [Right Brachial artery] O2 Saturation 94 92 Oxygen O2 Source Room air Oxygen Flow Rate 2 I&O (Last 24 Hrs): Intake and Output Totals x24h 01/20/23 01/21/23 01/22/23 23:59 23:59 23:59 Intake Total 1100 540 680 Output Total 150 200 600 Balance 950 340 80 General: Alert, Mild distress (respiratory) HEENT: Mucous membr. moist/pink, Other (Face flushed) Neck: Supple Neuro: Alert, Disoriented, Non Focal Cardiovascular: Regular rate Respiratory: Other (Diminishe breath sounds L side) Abdomen: Soft, No tenderness Extremities: No clubbing, No edema, No tenderness/swelling - Results Results: Laboratory Results WBC 11.4 x10^3/uL (4.8-10.8) H 01/17/23 05:37 RBC 4.39 10^6/uL (4.70-6.10) L 01/17/23 05:37 Hgb 15.1 g/dL (14.0-18.0) 01/17/23 05:37 Hct 43.3 % (42.0-52.0) 01/17/23 05:37 MCV 98.6 fL (80.0-94.0) H 01/17/23 05:37 MCH 34.4 pg (27.0-31.0) H 01/17/23 05:37 MCHC 34.9 g/dL (32.0-36.0) 01/17/23 05:37 RDW 12.4 % (12.0-15.0) 01/17/23 05:37 Plt Count 222 10^3/uL (130-450) 01/17/23 05:37 MPV 10.7 fL (7.4-11.4) 01/17/23 05:37 Neut # (Auto) 9.5 10^3/uL (1.5-6.6) H 01/17/23 05:37 Lymph # (Auto) 0.8 10^3/uL (1.5-3.5) L 01/17/23 05:37 Elk # (Auto) 1.0 10^3/uL (0.0-1.0) 01/17/23 05:37 Eos # (Auto) 0.1 10^3/uL (0.0-0.7) 01/17/23 05:37 Baso # (Auto) 0.1 10^3/uL (0.0-0.1) 01/17/23 05:37 Absolute Nucleated RBC 0.00 x10^3/uL 01/17/23 05:37 Nucleated RBC % 0.0 /100WBC 01/17/23 05:37 PT 14.4 secs (9.9-12.6) H 01/14/23 04:30 INR 1.4 (0.8-1.2) H 01/14/23 04:30 Bld Gas Analysis Time 18401/13/23 18:40 Sample Site RIGHT RADIAL 01/13/23 18:40 ABG pH 7.46 (7.35-7.45) H 01/13/23 18:40 ABG pCO2 29 mmHg (34-45) L 01/13/23 18:40 ABG pO2 77 mmHg (80-100) L 01/13/23 18:40 ABG HCO3 20.2 mmol/L (22.0-26.0) L 01/13/23 18:40 ABG Total CO2 21.1 MMOL/L (21.0-29.0) 01/13/23 18:40 ABG O2 Saturation 96 % (94-98) 01/13/23 18:40 ABG Base Excess -2.1 mmol/L (-2.0-3.0) L 01/13/23 18:40 Donald Test POSITIVE 01/13/23 18:40 O2 Delivery Device NASAL CANNULA 01/13/23 18:40 O2 Liters/Min 2.00 LPM 01/13/23 18:40 Sodium 131 mmol/L (135-145) L 01/20/23 07:56 Potassium 3.6 mmol/L (3.5-4.5) 01/20/23 07:56 Chloride 96 mmol/L (101-111) L 01/20/23 07:56 Carbon Dioxide 27 mmol/L (21-32) 01/20/23 07:56 Anion Gap 8.0 (6-13) 01/20/23 07:56 BUN 21 mg/dL (6-20) H 01/20/23 07:56 Creatinine 1.1 mg/dL (0.6-1.3) 01/20/23 07:56 Estimated GFR (MDRD) 64 (>89) L 01/20/23 07:56 Glucose 115 mg/dL (74-104) H 01/20/23 07:56 Calcium 8.8 mg/dL (8.5-10.3) 01/20/23 07:56 Total Bilirubin 0.8 mg/dL (0.2-1.0) 01/14/23 04:30 Direct Bilirubin 0.16 mg/dL (0.03-0.18) 01/14/23 04:30 AST 32 IU/L (10-42) 01/14/23 04:30 ALT 20 IU/L (10-60) 01/14/23 04:30 Alkaline Phosphatase 78 IU/L (42-121) 01/14/23 04:30 Troponin I High Sens 21.8 ng/L (2.3-19.7) H* 01/13/23 16:26 B-Natriuretic Peptide 59 pg/mL (5-100) 01/13/23 13:21 Total Protein 6.4 g/dL (6.4-8.9) 01/14/23 04:30 Albumin 3.4 g/dL (3.2-5.5) 01/14/23 04:30 Globulin 3.0 g/dL (2.1-4.2) 01/14/23 04:30 Albumin/Globulin Ratio 1.2 (1.0-2.2) 01/13/23 18:20 Lipase 33 U/L (11-82) 01/13/23 13:21 TSH 4.55 uIU/mL (0.34-5.60) 01/13/23 13:21 Free T4 Direct 0.87 ng/dL (0.58-1.64) 01/13/23 13:21 Fluid Source PLEURAL 01/14/23 09:45 Fluid Color PINK 01/14/23 09:45 Fluid Clarity HAZY 01/14/23 09:45 Fluid WBC 459 /mm^3 01/14/23 09:45 Fluid RBC 27917 /mm^3 01/14/23 09:45 Fluid Neutrophils % 15.0 % 01/14/23 09:45 Fluid Lymphocytes % 76.0 % 01/14/23 09:45 Fluid Monocytes % 1.0 % 01/14/23 09:45 Fluid Eosinophils % 2.0 % 01/14/23 09:45 Fluid Macrophages % 3.0 % 01/14/23 09:45 Fld Mesothelial Cell % 3.0 % 01/14/23 09:45 Fluid Glucose 88 mg/dL (.) 01/14/23 09:45 Fluid Total Protein 3.8 g/dL (.) 01/14/23 09:45 Fluid LDH 133 IU/L (.) 01/14/23 09:45 Nasal Adenovirus (PCR) NOT DETECTED 01/13/23 14:35 Nasal B. parapertussis DNA (PCR) NOT DETECTED 01/13/23 14:35 Nasal Coronavir 229E PCR NOT DETECTED 01/13/23 14:35 Nasal Coronavir HKU1 PCR NOT DETECTED 01/13/23 14:35 Nasal Coronavir NL63 PCR NOT DETECTED 01/13/23 14:35 Nasal Coronavir OC43 PCR NOT DETECTED 01/13/23 14:35 Nasal Enterovir/Rhinovir PCR NOT DETECTED 01/13/23 14:35 Nasal Influenza B PCR NOT DETECTED 01/13/23 14:35 Nasal Influenza A PCR NOT DETECTED 01/13/23 14:35 Nasal Parainfluen 1 PCR NOT DETECTED 01/13/23 14:35 Nasal Parainfluen 2 PCR NOT DETECTED 01/13/23 14:35 Nasal Parainfluen 3 PCR NOT DETECTED 01/13/23 14:35 Nasal Parainfluen 4 PCR NOT DETECTED 01/13/23 14:35 Nasal RSV (PCR) NOT DETECTED 01/13/23 14:35 Nasal B.pertussis DNA PCR NOT DETECTED 01/13/23 14:35 Nasal C.pneumoniae (PCR) NOT DETECTED 01/13/23 14:35 Jamin Human Metapneumo PCR NOT DETECTED 01/13/23 14:35 Nasal M.pneumoniae (PCR) NOT DETECTED 01/13/23 14:35 Nasal SARS-CoV-2 (PCR) NOT DETECTED 01/13/23 14:35 Sepsis Event Note (H) - Evaluation Current Stage of Sepsis: Ruled out
--- NOTE | 2023-01-22 15:17 | XRAY Report ---
PROCEDURE: Post Thoracentesis 1V CXR INDICATIONS: POST THORA TECHNIQUE: One view of the chest was acquired. COMPARISON: Chest radiograph from earlier same day and 01/15/2023. FINDINGS: Surgical changes and devices: None. Lungs and pleura: Mild diffuse interstitial prominence not significantly changed. There is a small r ight pleural effusion with fluid within the right minor fissure. No focal consolidation. Persistent l eft pleural effusion now moderate in size. No pneumothorax seen status post thoracentesis. Improved a eration of the left mid and upper lung zone. Associated compressive atelectasis. Underlying mass or p neumonia in the left lower lung zone not excluded as it is obscured by pleural fluid. Mediastinum: Mediastinal contours appear stable. Heart size is stable. Bones and chest wall: No suspicious bony lesions. Overlying soft tissues appear unremarkable. IMPRESSION: Improved aeration of the left hemithorax with persistent moderate sized pleural effusion which has de creased substantially compared to the prior study. Findings are compatible with interval thoracentesi s. No pneumothorax identified. Diffuse interstitial prominence not significantly changed. Reviewed by: Kris Sarabia MD on 01/22/2023 3:15 PM PST Approved by: Kris Sarabia MD on 01/22/2023 3:15 PM PST Station ID: [id number]
--- NOTE | 2023-01-22 15:18 | Ultrasound Report ---
PROCEDURE: Thoracentesis Puncture INDICATIONS: SOB, re-accumulating pleural effusion TECHNIQUE: The indications, alternatives, benefits, risks, and complications of the procedure were explained to the patient. Written informed consent was obtained and placed in the chart. The chest was examined sonographically, and an appropriate site was chosen for thoracentesis. The skin was prepared and dorothy ped in the usual sterile fashion, and 1% lidocaine was infiltrated from the skin down through the ple ural surface. A 19-gauge catheter-covered needle was then introduced into the pleural space, the cat heter was advanced and the needle was withdrawn, and thereafter pleural fluid was aspirated. The cat heter was then removed and a dressing was applied. COMPARISON: Chest radiograph from earlier same day and 01/15/2023. FINDINGS: Access site: Left hemithorax. Needle: One-Step centesis catheter with introducer needle. Fluid volume and description: 2.0 L of serosanguineous left pleural effusion. Fluid sent for diagnostic testing: None sent. This was ordered as a therapeutic procedure. Medications: 1% lidocaine for local anaesthesia. Complications: None; post-procedural chest radiograph is pending to assess for pneumothorax. IMPRESSION: Successful ultrasound-guided thoracentesis. Reviewed by: Kris Sarabia MD on 01/22/2023 3:16 PM PST Approved by: Kris Sarabia MD on 01/22/2023 3:16 PM PST Station ID: [id number]
[2023-01-22 16:02] LABS: BF CLARITY CLOUDY; BF COLOR RED; BF SOURCE PERITONEAL; CC,BF RBC 67000 /mm^3; CC,BF WBC 371 /mm^3
[2023-01-22 16:48] LABS: BASOPHILS %,BODY FLUID 1 %; EOSINOPHILS %,BODY FLUID 3 %; LYMPHOCYTES %,BODY FLUID 48 %; MACROPHAGES %,BODY FLUID 24 %; MESOTHELIAL %, BF 3 %; NEUTROPHILS %, BF 21 %
[2023-01-23 06:01] LABS: BASOPHILS # (AUTO) 0.1 10^3/uL (0.0-0.1); BASOPHILS % (AUTO) 0.7 %; EOSINOPHILS % (AUTO) 0.3 %; HCT - HEMATOCRIT 44.5 % (42.0-52.0); HGB - HEMOGLOBIN 15.2 g/dL (14.0-18.0); LYMPHOCYTES % (AUTO) 8.2 %; MEAN CORPUSCULAR HEMOGLOBIN 33.6 pg (27.0-31.0); MEAN CORPUSCULAR HGB CONC 34.2 g/dL (32.0-36.0); MEAN CORPUSCULAR VOLUME 98.5 fL (80.0-94.0); MEAN PLATELET VOLUME 10.9 fL (7.4-11.4); MONOCYTES # (AUTO) 1.2 10^3/uL (0.0-1.0); MONOCYTES % (AUTO) 10.1 %; NEUTROPHILS # (AUTO) 9.5 10^3/uL (1.5-6.6); NEUTROPHILS % (AUTO) 79.7 %; PLT - PLATELET COUNT 312 10^3/uL (130-450); RED BLOOD COUNT 4.52 10^6/uL (4.70-6.10); RED CELL DISTRIBUTION WIDTH 12.3 % (12.0-15.0); WHITE BLOOD COUNT 11.9 x10^3/uL (4.8-10.8)
[2023-01-23 06:13] LABS: CALCIUM 8.5 mg/dL (8.5-10.3); CREATININE 1.2 mg/dL (0.6-1.3); POTASSIUM 3.9 mmol/L (3.5-4.5)
[2023-01-23] MEDS: polyethylene glycoL 3350 17 GM PACKET PO SCH (08:55)
[2023-01-23] MEDS: APIXABAN 5 MG TABLET PO SCH ×2 (08:55→21:52)
[2023-01-23] MEDS: SODIUM CHLORIDE FLUSH 0.9% 10 ML SYRINGE IVP SCH ×2 (08:55→21:52)
[2023-01-23] MEDS: PRENATAL VITAMIN TABLET PO SCH (08:55)
[2023-01-23] MEDS: diltiaZEM CD 180 MG CAPSULE PO SCH (08:55)
[2023-01-23] MEDS: THIAMINE 100 MG TABLET PO SCH (08:55)
--- NOTE | 2023-01-23 13:44 | PROVIDER PROGRESS NOTE ---
Assessment/Plan - Problem List (1) Pleural effusion Assessment/Plan: 1.6L was taken off via thoracentesis on 01/14. A CXR was done yesterday when his resp rate increased and his O2 sat dropped to 92% on RA, after being comfortable and saturating >95% for a week. That CXR showed re-accumulation of the L-sided pleural effusion. He underwent thoracentesis again yesterday 01/22, and 2L was removed. His resp status improved immediately. The pleural fluid cytology from the 1st pleural fluid specimen is back and it showed no malignant cells. I discussed this results yesterday with the patient, and son in room. Plan: Remain off Lasix He needs Pulmonary F/U after discharge, I reviewed this w/ , son and friend in room (2) Altered mental status Qualifiers: Altered mental status type: disorientation Qualified Code(s): R41.0 - Disorientation, unspecified Assessment/Plan: Encephalopathy is improved after using CPAP nightly. Family do not want an MRI of his brain performed while inpatient to r/o CVA given his foot drop. He likely suffers from underlying dementia which has been progressing. He asked about Gabe lewis 15 times today, asked how he got "back to earth". Plan: We will recommend outpatient follow-up with a Neurologist given his mental status, which has been declining for several mos. I reviewed this w/ , son and friend in room (3) Weakness Assessment/Plan: Case was discussed with PT/OT. They are still recommending rehab at a SNF, given his general decline in cognition as well as profound weakness. He is also having a left-sided foot drop. Family did not want brain imaging to eval for a stroke. He has a high risk for falls. He is not cooperating with using a walker and loses his balance Plan: We are working on a safe discharge plan with social work. Family requested SNF placement in [place], since he and his have sold their house and are moving there. No SNFs have accepted him. An alternative plan will be for 01/10 caregiving with a company in [place] that the family is hiring Bethany, our parole hearing officer reviewed the recommendations from PT/OT of discharging via ambulance, with the son. But he and the are planning on driving him themselves to [place] when a walker/wheelchair equipment arrives to the house Anticipate discharge soon. (4) Chronic Atrial fibrillation Assessment/Plan: Plan: Continue po Diltiazem. Heart rate well controlled now. We have removed him from telemetry. Anticoagulated with Eliquis. (5) Melanoma Qualifiers: Melanoma location: neck Qualified Code(s): C43.4 - Malignant melanoma of scalp and neck Assessment/Plan: History of a melanoma excision on his posterior neck. An MRI of his abdomen and lung was performed during this admission. MRI of the abdomen shows a 4.8 cm liver mass which is worrisome. This will eventually need to be biopsied. There is also evidence of nodules on his lung MRI. Family would like to have this evaluated and managed in [place]. However there will be several social challenges in regards to placement in [place]. Family is able to provide their own transport in the form of a private pay ambulance. Plan: A referral has been placed by his PCP in [place] for a Oncologist (the son spoke to the PCP).. The PCP will need to order a CT guided biopsy of the liver so that a tissue diagnosis would be made available before the Oncology consultation. (6) RAUDEL on CPAP Assessment/Plan: Encephalopathy is much improved after using CPAP nightly. Plan: Cont home CPAP here (7) Pneumonia Qualifiers: Pneumonia type: due to unspecified organism Laterality: left Lung location: lower lobe of lung Qualified Code(s): J18.9 - Pneumonia, unspecified organism Assessment/Plan: Antibiotics complete on 01/20. His pleural effusion culture was negative. (8) Acute respiratory failure with hypoxia Assessment/Plan: Hypoxia resolved (9) Alcohol use Assessment/Plan: He has a prior history of drinking 2x glasses of wine daily. Alcohol withdrawal resolved. We have discontinue Librium per family request and to decrease sedatives Plan: Continue thiamine and multivitamin supplements. Remain off alcohol. (10) Hyponatremia Assessment/Plan: Sodium was stable, last checked several days ago. Plan: He is still on a free water restriction Will recheck Na tomorrow - Current Meds Current Meds: Current Medications Generic Name Dose Route Start Last Admin Trade Name Freq PRN Reason Stop Dose Admin Apixaban 5 mg 01/13/23 21:00 01/23/23 08:55 Apixaban 5 Mg Tablet PO 5 mg BID JUNITO Administration Diltiazem HCl 360 mg 01/17/23 15:00 01/23/23 08:55 Diltiazem Cd 180 Mg Capsule PO 360 mg DAILY JUNITO Administration Lorazepam 1 mg 01/13/23 18:12 01/15/23 00:20 Lorazepam 2 Mg/Ml Vial IVP 1 mg Q30M PRN Administration CIWA >8 Protocol Mineral Oil 1 applic 01/14/23 21:33 01/17/23 16:28 Min Oil/Dimethicon/Coconut Oil 92 Gm Tube TOP 1 applic PRN PRN Administration Skin Care Polyethylene Glycol 17 gm 01/18/23 14:00 01/23/23 08:55 Polyethylene Glycol 3350 17 Gm Packet PO Not Given DAILY JUNITO Multivit/Folic Acid/Iron 1 tab 01/14/23 09:00 01/23/23 08:55 Vitamin Tablet PO 1 tab DAILY JUNITO Administration Sodium Chloride 10 ml 01/13/23 15:52 01/16/23 06:19 Sodium Chloride Flush 0.9% 10 Ml Syringe IVP 10 ml PRN PRN Administration NEEDED PER PROVIDER ORDERS Sodium Chloride 10 ml 01/13/23 17:00 01/23/23 08:55 Sodium Chloride Flush 0.9% 10 Ml Syringe IVP 10 ml 0100,0900,1700 JUNITO Administration Thiamine HCl 100 mg 01/14/23 09:00 01/23/23 08:55 Thiamine 100 Mg Tablet PO 100 mg DAILY JUNITO Administration Zinc Oxide 113 gm 01/14/23 13:56 01/17/23 11:58 Cod Liver Oil/Zinc Oxide 113 Gm Tube TOP 1 applic PRN PRN Administration Skin Care - Lab Result Fish Bone Diagrams: 01/23/23 05:32 01/23/23 05:32 - Additional Planning My Orders: My Active Orders 01/22/23 14:45 CUL,BODY FLUID(AEROBIC) [RM] Routine GLUCOSE BODY FLUID [REFLAB] Stat LD BODY FLUID [REFLAB] Stat PROTEIN BODY FLUID [REFLAB] Stat 01/23/23 10:15 Free Water Restriction [RC] DAILY AM 01/24/23 09:00 diphenhydrAMINE [Benadryl] 25 mg PO DAILY Subjective - Subjective Patient Reports: Resting Comfortably, No Complaints Objective Vital Signs: Vital Signs - 24 hr 01/22/23 01/23/23 01/23/23 16:28 06:15 09:12 Temperature 37.0 C 36.8 C 36.3 C L Heart Rate [ 84 84 100 Brachial] Respiratory 18 17 18 Rate Blood Pressure 140/59 H 133/66 H 136/70 H [Right Brachial artery] O2 Saturation 95 92 94 Oxygen O2 Source Room air Oxygen Flow Rate 2 I&O (Last 24 Hrs): Intake and Output Totals x24h 01/21/23 01/22/23 01/23/23 23:59 23:59 23:59 Intake Total 540 780 440 Output Total 200 600 600 Balance 340 180 -160 General: Alert (disoriented) HEENT: EOMI, Mucous membr. moist/pink, Other (Face flushed) Neck: Supple, No JVD Neuro: Alert, Disoriented, Non Focal Cardiovascular: No murmurs Respiratory: No respiratory distress Abdomen: Soft Extremities: No clubbing, No edema, No tenderness/swelling - Results Results: Laboratory Results WBC 11.9 x10^3/uL (4.8-10.8) H 01/23/23 05:32 RBC 4.52 10^6/uL (4.70-6.10) L 01/23/23 05:32 Hgb 15.2 g/dL (14.0-18.0) 01/23/23 05:32 Hct 44.5 % (42.0-52.0) 01/23/23 05:32 MCV 98.5 fL (80.0-94.0) H 01/23/23 05:32 MCH 33.6 pg (27.0-31.0) H 01/23/23 05:32 MCHC 34.2 g/dL (32.0-36.0) 01/23/23 05:32 RDW 12.3 % (12.0-15.0) 01/23/23 05:32 Plt Count 312 10^3/uL (130-450) 01/23/23 05:32 MPV 10.9 fL (7.4-11.4) 01/23/23 05:32 Neut # (Auto) 9.5 10^3/uL (1.5-6.6) H 01/23/23 05:32 Lymph # (Auto) 1.0 10^3/uL (1.5-3.5) L 01/23/23 05:32 [place] # (Auto) 1.2 10^3/uL (0.0-1.0) H 01/23/23 05:32 Eos # (Auto) 0.0 10^3/uL (0.0-0.7) 01/23/23 05:32 Baso # (Auto) 0.1 10^3/uL (0.0-0.1) 01/23/23 05:32 Absolute Nucleated RBC 0.00 x10^3/uL 01/23/23 05:32 Nucleated RBC % 0.0 /100WBC 01/23/23 05:32 PT 14.4 secs (9.9-12.6) H 01/14/23 04:30 INR 1.4 (0.8-1.2) H 01/14/23 04:30 Bld Gas Analysis Time 18401/13/23 18:40 Sample Site RIGHT RADIAL 01/13/23 18:40 ABG pH 7.46 (7.35-7.45) H 01/13/23 18:40 ABG pCO2 29 mmHg (34-45) L 01/13/23 18:40 ABG pO2 77 mmHg (80-100) L 01/13/23 18:40 ABG HCO3 20.2 mmol/L (22.0-26.0) L 01/13/23 18:40 ABG Total CO2 21.1 MMOL/L (21.0-29.0) 01/13/23 18:40 ABG O2 Saturation 96 % (94-98) 01/13/23 18:40 ABG Base Excess -2.1 mmol/L (-2.0-3.0) L 01/13/23 18:40 Donald Test POSITIVE 01/13/23 18:40 O2 Delivery Device NASAL CANNULA 01/13/23 18:40 O2 Liters/Min 2.00 LPM 01/13/23 18:40 Sodium 130 mmol/L (135-145) L 01/23/23 05:32 Potassium 3.9 mmol/L (3.5-4.5) 01/23/23 05:32 Chloride 95 mmol/L (101-111) L 01/23/23 05:32 Carbon Dioxide 29 mmol/L (21-32) 01/23/23 05:32 Anion Gap 6.0 (6-13) 01/23/23 05:32 BUN 20 mg/dL (6-20) 01/23/23 05:32 Creatinine 1.2 mg/dL (0.6-1.3) 01/23/23 05:32 Estimated GFR (MDRD) 58 (>89) L 01/23/23 05:32 Glucose 97 mg/dL (74-104) 01/23/23 05:32 Calcium 8.5 mg/dL (8.5-10.3) 01/23/23 05:32 Total Bilirubin 0.8 mg/dL (0.2-1.0) 01/14/23 04:30 Direct Bilirubin 0.16 mg/dL (0.03-0.18) 01/14/23 04:30 AST 32 IU/L (10-42) 01/14/23 04:30 ALT 20 IU/L (10-60) 01/14/23 04:30 Alkaline Phosphatase 78 IU/L (42-121) 01/14/23 04:30 Troponin I High Sens 21.8 ng/L (2.3-19.7) H* 01/13/23 16:26 B-Natriuretic Peptide 59 pg/mL (5-100) 01/13/23 13:21 Total Protein 6.4 g/dL (6.4-8.9) 01/14/23 04:30 Albumin 3.4 g/dL (3.2-5.5) 01/14/23 04:30 Globulin 3.0 g/dL (2.1-4.2) 01/14/23 04:30 Albumin/Globulin Ratio 1.2 (1.0-2.2) 01/13/23 18:20 Lipase 33 U/L (11-82) 01/13/23 13:21 TSH 4.55 uIU/mL (0.34-5.60) 01/13/23 13:21 Free T4 Direct 0.87 ng/dL (0.58-1.64) 01/13/23 13:21 Fluid Source PERITONEAL 01/22/23 14:45 Fluid Color RED 01/22/23 14:45 Fluid Clarity CLOUDY 01/22/23 14:45 Fluid WBC 371 /mm^3 01/22/23 14:45 Fluid RBC 65485 /mm^3 01/22/23 14:45 Fluid Neutrophils % 21 % 01/22/23 14:45 Fluid Lymphocytes % 48 % 01/22/23 14:45 Fluid Monocytes % 1.0 % 01/14/23 09:45 Fluid Eosinophils % 3 % 01/22/23 14:45 Fluid Basophils % 1 % 01/22/23 14:45 Fluid Macrophages % 24 % 01/22/23 14:45 Fld Mesothelial Cell % 3 % 01/22/23 14:45 Fluid Glucose 88 mg/dL (.) 01/14/23 09:45 Fluid Total Protein 3.8 g/dL (.) 01/14/23 09:45 Fluid LDH 133 IU/L (.) 01/14/23 09:45 Nasal Adenovirus (PCR) NOT DETECTED 01/13/23 14:35 Nasal B. parapertussis DNA (PCR) NOT DETECTED 01/13/23 14:35 Nasal Coronavir 229E PCR NOT DETECTED 01/13/23 14:35 Nasal Coronavir HKU1 PCR NOT DETECTED 01/13/23 14:35 Nasal Coronavir NL63 PCR NOT DETECTED 01/13/23 14:35 Nasal Coronavir OC43 PCR NOT DETECTED 01/13/23 14:35 Nasal Enterovir/Rhinovir PCR NOT DETECTED 01/13/23 14:35 Nasal Influenza B PCR NOT DETECTED 01/13/23 14:35 Nasal Influenza A PCR NOT DETECTED 01/13/23 14:35 Nasal Parainfluen 1 PCR NOT DETECTED 01/13/23 14:35 Nasal Parainfluen 2 PCR NOT DETECTED 01/13/23 14:35 Nasal Parainfluen 3 PCR NOT DETECTED 01/13/23 14:35 Nasal Parainfluen 4 PCR NOT DETECTED 01/13/23 14:35 Nasal RSV (PCR) NOT DETECTED 01/13/23 14:35 Nasal B.pertussis DNA PCR NOT DETECTED 01/13/23 14:35 Nasal C.pneumoniae (PCR) NOT DETECTED 01/13/23 14:35 Jamin Human Metapneumo PCR NOT DETECTED 01/13/23 14:35 Nasal M.pneumoniae (PCR) NOT DETECTED 01/13/23 14:35 Nasal SARS-CoV-2 (PCR) NOT DETECTED 01/13/23 14:35 Sepsis Event Note (H) - Evaluation Current Stage of Sepsis: Ruled out
--- NOTE | 2023-01-23 15:34 | Discharge Plan ---
Discharge Plan Problem Reviewed?: Yes Disposition: Home, Self Care Condition: Fair Prescriptions: diltiaZEM CD [Cardizem Cd] 360 mg PO DAILY #30 cap Apixaban [Eliquis] 5 mg PO BID #60 tab Multivit-Minerals/Folic Acid [Men's Multivitamin Gummies] 200 mcg PO DAILY #30 e a Thiamine [Vitamin B-1] 100 mg PO DAILY #30 tab Diet: Regular Activity Restrictions: Activity as Tolerated Shower Restrictions: No Driving Restrictions: Yes Assistance Devices: Walker Weight Bearing: Full Weight Instruction Topics: Hyponatremia Dc Health Concerns: Patient was hospitalized to treat a pneumonia. We also found fluid in the pleural space around his L lung which needed to be drained twice. We also noted that the patient is disoriented, has poor memory, generalized weakness, poor balance and foot drop. He may have dementia. He needs more rehab for balance and strengthening. Also found was a liver mass that needs a biopsy for tissue diagnosis. He needs Pulmonary, Neurology and Oncology evaluation and management upon arrival to [place]. He needs caregiving and needs monitoring 24/ so he does not fall. Plan of Treatment: As above. Care Goals: Improvement in symptoms and stabilization are the goals. Assessment: The and son understand and are in agreement with the plan. Additional Instructions or Follow Up instructions: Please contact the Primary Care Provider in [place] as soon as you arrive there. No Smoking: If you smoke, Please STOP! Call for help.
[2023-01-23 21:07] LABS: PROTEIN BODY FLUID 3.6 g/dL (.)
[2023-01-24] MEDS: SODIUM CHLORIDE FLUSH 0.9% 10 ML SYRINGE IVP SCH ×2 (00:34→08:44)
[2023-01-24 06:10] VITALS: O2SAT 94
--- NOTE | 2023-01-24 07:38 | DISCHARGE SUMMARY ---
Discharge Summary Admit Date: 01/13/23 Discharge Date: 01/24/23 Discharging Provider: Dr Jessica Barba Primary Care Provider: Dr Efraín Dawson, Cash Accounting Clerk in [place], [place] Code Status: Attempt Resuscitation Condition at Discharge: Fair Discharge Disposition: 01 Home, Self Care - HPI History of Present Illness: This pt is confused and disoriented, history is obtained from recent ED reports and family (pt's and son) at bedside. Mr. Cruz is an 82 y/o M, presenting to the ED today for shortness of breath and progressively worsening confusion. Pt recently presented on 01/09/23 for increased confusion. ED workup then showed no clear etiology, outside of pt's non-compliance w/ CPAP and age related atrophy seen on head CT, pt discharged w/ recommended outpatient follow up. Since 01/09/23, he has become progressively weaker, having difficulty standing, and SOB has become debilitating. History significant for atrial fibrillation diagnosis in 2019, for which he is prescribed Eliquis, and Hx of malignant melanoma of his posterior neck which was removed while at approximately 3 months ago. We do not have details of preceding workup of the cancer at this time. Today pt brought in via POV to ED. EKG shows atrial fibrillation with a rate of 133, 87% SpO2 on room air. CXR shows large amount of focal consolidation in left mid and left lung pleural effusion. Pt started on azithromycin and ceftriaxone for empiric PNA treatment. CT chest shows "large left-sided pleural effusion with underlying atelectasis, however there are multiple enlarged pulmonary nodules concerning for cancer." Pt admitted for further workup of hypoxia, pneumonia, A-fib w/ RVR, and weakness and confusion. He is a Full Code. - HOSPITAL COURSE Hospital Course: (1) Pleural effusion He underwent thoracentesis on 01/14/23 and 1.6L was taken off. The fluid was an exudate, cultures were neg and also pathology report showed no malignant cells. He needed a repeat thoracentesis on 01/22/23, when he became tachypneic and the effusion had re-accumulated. 2L was removed and the fluid was dark brown in color. He needs [facility] care as an outpatient. (2) Pneumonia: J18.9 - Pneumonia, unspecified organism He received a course of Zithromax and Ceftriaxone, completed on 01/20/23. His pleural effusion culture was negative. (3) Acute respiratory failure with hypoxia Hypoxia resolved with treatment of the pneumonia and thoracentesis. (4) Alcohol use He has a history of drinking 2+ glasses of wine daily. We thought his initial confusion and anxiety was possibly from alcohol withdrawal and he was on a CIWA protocol, got prn Ativan and was also on several days of po Librium. He was prescribed daily thiamine and multivitamin supplements to continue. (5) Hyponatremia Sodium was . He got iv NS and was on a free water restriction his entore stay. Na was 130 at discharge. (6) Altered mental status: R41.0 - Disorientation, unspecified He likely suffers from underlying dementia which has been progressing. Family did not want an MRI of his brain performed while inpatient to r/o CVA given his foot drop. I recommend outpatient follow-up with a Neurologist given his weak condition and mental status, which has been declining for several mos. (7) Weakness He worked with PT and OT. They recommended postacute rehab at a SNF, but family chose to transport him to [place], where they were moving to, and to hire caregivers. (8) Chronic Atrial fibrillation Diltiazem dosing was adjusted, and HR became controlled. He remained an ticoagulated on Eliquis. (9) Melanoma: C43.4 - Malignant melanoma of scalp and neck History of a melanoma excision on his posterior neck. CT and MRI of his abdomen and lung was performed during this admission. The abdomen imaging showed a 4.8 cm liver mass which is worrisome. This will eventually need to be biopsied. There is also evidence of nodules on his lung MRI. Family would like to have this evaluated and managed in [place]. A referral has been placed by his PCP in [place] for an Oncologist (the son spoke to the PCP). The PCP will need to order a CT guided biopsy of the liver so that a tissue diagnosis can be made available before the Oncology consultation. (10)Liver mass As above. (11) RAUDEL on CPAP Encephalopathy improved after using CPAP nightly. - ALLERGIES Allergies/Adverse Reactions: Allergies Allergy/AdvReac Type Severity Reaction Status Date / Time No Known Drug Allergies Allergy Verified 01/13/23 13:01 - MEDICATIONS Home Medications: Ambulatory Orders Medication Instructions Recorded Confirmed Apixaban [Eliquis] 5 mg PO BID #60 tab 01/23/23 Cod Liver Oil/Zinc Oxide [Desitin] 113 gm TOP PRN PRN each 01/23/23 Multivit-Minerals/Folic Acid 200 mcg PO DAILY #30 ea 01/23/23 [Men's Multivitamin Gummies] Thiamine [Vitamin B-1] 100 mg PO DAILY #30 tab 01/23/23 diltiaZEM CD [Cardizem Cd] 360 mg PO DAILY #30 cap 01/23/23 - PHYSICAL EXAM AT DISCHARGE General Appearance: positive: No acute distress, Alert, Other (Tall male) Eyes Bilateral: positive: Normal inspection, EOMI ENT: positive: ENT inspection nml, No signs of dehydration Neck: positive: Nml inspection, No JVD Respiratory: positive: No respiratory distress Cardiovascular: positive: No murmur, Irregularly irregular Abdomen: positive: Non-tender, No distention Skin: positive: Warm, Dry Extremities: positive: Non-tender, No pedal edema Neurologic/Psychiatric: positive: CN's nml (2-12) (Disoriented to place and time. L foot drop.) - LABS Result Diagrams: 01/23/23 05:32 01/23/23 05:32 - DIAGNOSTIC IMAGING Diagnostic Imaging Results: Final report reviewed - SEPSIS Current Stage of Sepsis: Ruled out - FOLLOW UP Follow Up: Dr Efraín Dawson - TIME SPENT Time Spent in Discharge (Minutes): 45
[2023-01-24] MEDS: APIXABAN 5 MG TABLET PO SCH (08:43)
[2023-01-24] MEDS: THIAMINE 100 MG TABLET PO SCH (08:43)
[2023-01-24] MEDS: diltiaZEM CD 180 MG CAPSULE PO SCH (08:43)
[2023-01-24] MEDS: polyethylene glycoL 3350 17 GM PACKET PO SCH (08:44)
[2023-01-24] MEDS: PRENATAL VITAMIN TABLET PO SCH (08:44)
[2023-01-24] MEDS ORDERED: diphenhydrAMINE 25 MG CAPSULE PO SCH (09:00)
[2023-01-24 09:41] VITALS: BP 131/74
== END 2023-01-24 09:30 | disposition home or self-care (01) | DRG 189 ==
LOC: ED 12:45 → MS2 15:52
PROVIDERS: ADMIT Internal Medicine; ATTEND Internal Medicine
PROC: 0W9B3ZX Drainage of Left Pleural Cavity, Percutaneous Approach, Diagnostic (ICD-10-PCS; principal; 2023-01-14)
PROC: 0W9B3ZZ Drainage of Left Pleural Cavity, Percutaneous Approach (ICD-10-PCS; 2023-01-22)
DX: J96.01 Acute respiratory failure with hypoxia (principal); R09.02 Hypoxemia; J18.9 Pneumonia, unspecified organism; I48.20 Chronic atrial fibrillation, unspecified; J90 Pleural effusion, not elsewhere classified; E87.1 Hypo-osmolality and hyponatremia; J98.11 Atelectasis; G47.30 Sleep apnea, unspecified; Z11.52 Encounter for screening for COVID-19; J81.1 Chronic pulmonary edema; R41.0 Disorientation, unspecified; R53.1 Weakness; K76.9 Liver disease, unspecified; Z79.01 Long term (current) use of anticoagulants; C43.4 Malignant melanoma of scalp and neck; R16.0 Hepatomegaly, not elsewhere classified; R91.8 Other nonspecific abnormal finding of lung field; G47.33 Obstructive sleep apnea (adult) (pediatric); E86.1 Hypovolemia; F41.9 Anxiety disorder, unspecified; M21.372 Foot drop, left foot; R41.3 Other amnesia; F10.10 Alcohol abuse, uncomplicated
CPT/HCPCS: 32555; 36415; 36600; 71045; 71260; 71552; 74183; 80048; 80053; 80076; 82803; 82945; 83615; 83690; 83880; 84157; 84439; 84443; 84484; 85025; 85610; 87040; 87070; 87205; 87633; 89051; 93005; 93306; 94660; 96365; 96375; 97116; 97162; 97166; 97530; 97535; 99285; A6250; A9270; A9575; J2060; Q9967